=== PATIENT | male | born 1930 | race Caucasian/White ===

== ENCOUNTER 2017-02-07 14:24 | Inpatient (IN) | payer MEDICARE, OTHER ==
[~2017-02-07] VITALS: Ht 180.3 cm; Wt 55.4 kg
[2017-02-07] VITALS (8 sets, daily range): BP systolic 141–197; BP diastolic 69–106; PULSE 62–80; RESP 14–26; TEMP 97.6–98.1; O2SAT 90–99
[~2017-02-07 14:24] MED LIST: HYDR50TA15 PO; LISI20 PO; METO25 PO; OXYC5 PO; SIMV5TAB32; TEMA15 PO
[2017-02-07] MEDS ORDERED: TRAM50TA PO (15:06)
[2017-02-07] MEDS ORDERED: COLA100C (15:06)
[2017-02-07] MEDS ORDERED: CHOL100025 CHEW (15:06)
[2017-02-07] MEDS ORDERED: METO25TA3 PO (15:06)
[2017-02-07] MEDS ORDERED: PLAV75TA29 PO (15:06)
[2017-02-07] MEDS ORDERED: ASPI81CH CHEW (15:06)
[2017-02-07] MEDS ORDERED: BUPR100T4 PO (15:06)
[2017-02-07] MEDS ORDERED: [UNRECOGNIZED DRUG - CODE] PO (15:06)
[2017-02-07] MEDS ORDERED: LISI10TA3 PO (15:06)
[2017-02-07] MEDS ORDERED: PRAV80TA2 PO (15:06)
[2017-02-07] MEDS ORDERED: SERO200T PO (15:06)
--- NOTE | 2017-02-07 15:21 | PD ---
HPI Chief Complaint: Respiratory Distress Time Seen by Provider: 15:16 Travel History International Travel<30 days: No Contact w/Intl Traveler<30days: No Traveled to known affect area: No History of Present Illness HPI 86- year old brought by [facility] to the ED complaining of shortness of breath. Per Nurse, the patient lives alone at home, started with shortness of breath this morning and then pressed his Life Alert button. The patient reports that he is still short of breath, but denies any chest pain, nausea, vomiting, or diarrhea. Patient denies any medical history, however, nurse provides history of COPD and HTN. The patient denies using oxygen at home. The patient reports that he smokes one pack per day of cigarettes, but denies any alcohol or drug use. He denies no pain at this time. History is limited because of patient's mental status he. He does appear to be somewhat altered and does seem to as the same questions multiple times. 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) Hypertension: Yes Immune Disorder: No Tetanus Vaccination: Unknown Influenza Vaccination: No Past Surgical History Surgical History: Unable to Obtain Cholecystectomy: Yes Other Surgery: Yes (RECTAL FISSURE REPAIR IN [facility]) Social History Alcohol Use: No (ALCOHOLIC QUIT DRINKING YEARS AGO ) Tobacco Use: Yes (1 PPD 70) Substance Use: No Allergies-Medications (Allergen,Severity, Reaction): Coded Allergies: No Known Allergies (Verified , 02/07/17) Reported Meds & Prescriptions Reported Meds & Active Scripts Active Reported Tramadol (Tramadol HCl) 50 Mg Tab 50 Mg PO Q4H PRN Seroquel (Quetiapine Fumarate) 200 Mg Tab 200 Mg PO DAILY Pravastatin 80 Mg Tab 80 Mg PO DAILY Plavix (Clopidogrel Bisulfate) 75 Mg Tab 75 Mg PO DAILY Metoprolol Tartrate 25 Mg Tab 25 Mg PO DAILY Lisinopril 10 Mg Tab 10 Mg PO DAILY Escitalopram Liq (Escitalopram Oxalate) 5 Mg/5 Ml Soln 10 Mg PO DAILY Colace (Docusate Sodium) 100 Mg Capsule Vitamin D3 (Cholecalciferol) 1,000 Unit Chew 1,000 Units CHEW DAILY Bupropion HCl 100 Mg Tab 150 Mg PO BID Aspirin 81 Mg Chew 81 Mg CHEW DAILY Review of Systems General / Constitutional: No: Fever, Chills, Weight Gain, Weight Loss, Other Eyes: No: Diploplia, Blurred Vision, Photophobia, Drainage, Redness, Foreign Body Sensation, Pain, Tearing, Blind Spots, Visual changes, Blindness, Other HENT: No: Headaches, Vertigo, Lightheadedness, Sore Throat, Rhinitis, Rhinorrhea, Congestion, Nosebleed, Neck Stiffness, Neck Pain, Masses, Gingival Bleeding, Dental Difficulties, Ear Discharge, Earache, Other Cardiovascular: No: Chest Pain or Discomfort, Palpitations, Irregular Rhythm, Tachycardia, Diaphoresis, Syncope, Dyspnea on exertion, Varicosities, Edema, Cyanosis, Varicosities, Phlebitis, Claudication, Other Respiratory: Positive: Shortness of Breath, No: Cough, Wheezing, Sneezing, Orthopnea, Hemoptysis, Stridor, Night Sweats, Pleuritic Pain, Other Gastrointestinal: No: Nausea, Vomiting, Diarrhea, Abdominal Pain, Hematemesis, Hematochezia, Constipation, Changes in Bowel Habits, Indigestion, Dysphagia, Loss of Appetite, Other Genitourinary: No: Urgency, Frequency, Dysuria, Nocturia, Hematuria, Decreased Urinary Output, Oliguria, Hesitancy, Dribbling, Incontinence, Pelvic Pain, Flank Pain, Dyspareunia, Discharge, Dysmenorrhea, Menorrhagia, Metorrhagia, Vaginal Bleeding, Other Musculoskeletal: No: Myalgias, Arthralgias, Limited ROM, Weakness, Cramping, Edema, Pain, Atrophy, Other Skin: No Rash, No Itching, No Dryness, No Lumps, No Hives, No Change in Pigmentation, No Change in nails, No Alopecia, No Lesions, No Breast Lumps, No Breast Tenderness, No Breast Swelling, No Other Neurologic: No: Weakness, Dizziness, Syncope, Focal Abnormalities, Coordination Problem, Tremor, Ataxia, Headache, Change in Mentation, Slurred Speech, Paresthesia, Incontinence, Seizures, Sensory Disturbance, Other Psychiatric: No: Anxiety, Depression, Suicidal Ideations, Disorder of Thought, Mood Disorder, Substance Abuse, Homicidal Ideation, Other Endocrine: No: Heat Intolerance, Cold Intolerance, Polyuria, Polydipsia, Other Hematologic/Lymphatic: No: Easy Bruising, Lymph Node Enlargement, Other Physical Exam Narrative GENERAL: SKIN: Warm and dry. HEAD: Atraumatic. Normocephalic. EYES: Pupils equal and round. No scleral icterus. No injection or drainage. ENT: No nasal bleeding or discharge. Mucous membranes pink and moist. Tongue is midline. No uvula deviation. NECK: Trachea midline. No JVD. CARDIOVASCULAR: Regular rate and rhythm. No murmurs, S3, S4. RESPIRATORY: No accessory muscle use. Clear to auscultation. Breath sounds equal bilaterally. No wheezing, rales, rhonchi, or crackles. GASTROINTESTINAL: Abdomen soft, non-tender, nondistended. Hepatic and splenic margins not palpable. MUSCULOSKELETAL: Extremities without clubbing, cyanosis, or edema. No obvious deformities. Full range of motion of the upper and lower extremities bilaterally. 2+ pulses bilaterally. NEUROLOGICAL: Awake and alert. No obvious cranial nerve deficits. Motor grossly within normal limits. Five out of 5 muscle strength in the arms and legs. Normal speech. PSYCHIATRIC: Appropriate mood and affect; insight and judgment normal. Data Data Last Documented VS Vital Signs Date Time Temp Pulse Resp B/P Pulse Ox O2 Delivery O2 Flow Rate FiO2 02/07/17 18:27 70 18 176/96 90 Room Air 02/07/17 17:19 2 02/07/17 14:32 98.1 Orders Electrocardiogram (02/07/17 ) Electrocardiogram (02/07/17 15:21) Complete Blood Count With Diff (02/07/17 15:21) Comprehensive Metabolic Panel (02/07/17 15:21) Ckmb (Isoenzyme) Profile (02/07/17 15:21) Troponin I (02/07/17 15:21) B-Type Natriuretic Peptide (02/07/17 15:21) Prothrombin Time / Inr (Pt) (02/07/17 15:21) Act Partial Throm Time (Ptt) (02/07/17 15:21) Blood Culture (02/07/17 15:21) Urinalysis - C+S If Indicated (02/07/17 15:21) Magnesium (Mg) (02/07/17 15:21) Thyroid Stimulating Hormone (02/07/17 15:21) Chest, Single Ap (02/07/17 15:21) Ct Brain W/O Iv Contrast(Rout) (02/07/17 15:21) Iv Access Insert/Monitor (02/07/17 15:21) Ecg Monitoring (02/07/17 15:21) Oximetry (02/07/17 15:21) Methylprednisolone So Succ Inj (Solumedr (02/07/17 15:30) Albuterol Neb (Albuterol Neb) (02/07/17 15:30) Lisinopril (Prinivil) (02/07/17 17:30) Metoprolol Tartrate (Lopressor) (02/07/17 17:30) Labs Laboratory Tests Test 02/07/17 15:29 White Blood Count 6.9 TH/MM3 Red Blood Count 4.16 MIL/MM3 Hemoglobin 11.7 GM/DL Hematocrit 36.0 % Mean Corpuscular Volume 86.5 FL Mean Corpuscular Hemoglobin 28.1 PG Mean Corpuscular Hemoglobin 32.5 % Concent Red Cell Distribution Width 15.8 % Platelet Count 244 TH/MM3 Mean Platelet Volume 8.3 FL Neutrophils (%) (Auto) 55.9 % Lymphocytes (%) (Auto) 33.5 % Monocytes (%) (Auto) 8.1 % Eosinophils (%) (Auto) 1.5 % Basophils (%) (Auto) 1.0 % Neutrophils # (Auto) 3.9 TH/MM3 Lymphocytes # (Auto) 2.3 TH/MM3 Monocytes # (Auto) 0.6 TH/MM3 Eosinophils # (Auto) 0.1 TH/MM3 Basophils # (Auto) 0.1 TH/MM3 CBC Comment DIFF FINAL Differential Comment Prothrombin Time 11.0 SEC Prothromb Time International 1.0 RATIO Ratio Activated Partial 29.8 SEC Thromboplast Time Sodium Level 141 MEQ/L Potassium Level 3.9 MEQ/L Chloride Level 107 MEQ/L Carbon Dioxide Level 29.2 MEQ/L Anion Gap 5 MEQ/L Blood Urea Nitrogen 22 MG/DL Creatinine 1.33 MG/DL Estimat Glomerular Filtration 51 ML/MIN Rate Random Glucose 92 MG/DL Calcium Level 8.8 MG/DL Magnesium Level 2.2 MG/DL Total Bilirubin 0.5 MG/DL Aspartate Amino Transf 17 U/L (AST/SGOT) Alanine Aminotransferase 11 U/L (ALT/SGPT) Alkaline Phosphatase 146 U/L Total Creatine Kinase 62 U/L Troponin I 0.02 NG/ML B-Type Natriuretic Peptide 451 PG/ML Total Protein 6.5 GM/DL Albumin 3.6 GM/DL Thyroid Stimulating Hormone 1.600 uIU/ML 3rd Gen [facility] Medical Decision Making Medical Screen Exam Complete: Yes Emergency Medical Condition: Yes Medical Record Reviewed: Yes Interpretation(s) CBC & BMP Diagram 02/07/17 15:29 LFTs within normal limits. Troponin and CK-MB negative. Last Impressions Head CT 02/07/17 1521 Signed Impressions: Service Date/Time: Tuesday, February 07, 2017 16:26 - CONCLUSION: 1. No acute abnormality is seen. 2. Age-related atrophy and suspected small vessel ischemic change in the white matter. Julio Cesar Fernández MD Chest X-Ray 02/07/17 1521 Signed Impressions: Service Date/Time: Tuesday, February 07, 2017 15:26 - CONCLUSION: No acute disease. Naveed Vasques Jr., MD EKG shows sinus rhythm with no sign of acute ischemia or arrhythmia. Read by me and attending. Differential Diagnosis COPD exacerbation versus respiratory distress versus inability take care of self versus dementia versus altered mental status Narrative Course 86-year-old male that presents to the ED for evaluation of shortness of breath. Patient was properly examined and was found to have signs and symptoms consistent with COPD exacerbation. Patient was brought oxygen and his O2 came out. He was given breathing treatments as well as labs and imaging. Patient is somewhat of a poor historian heat appears to have some sort of dementia. She has trouble remembering where he takes and he for the most part only takes no medications. He lives by himself. Per my attending Dr. Marquis evaluated the patient with me who is in agreement with plan. Patient does need either placement or home health. I spoke with case management who recommends admission. O2 here with walking comes down to 90. HEPAS was paged. Dr Calderón agrees to admission. Diagnosis Primary Impression: COPD with exacerbation Additional Impressions: Altered mental status Qualified Code: R41.82 - Altered mental status, unspecified altered mental status type HTN (hypertension) Qualified Code: I10 - Essential hypertension Admitting Information Admitting Physician Requests: Admit Lanre Montero Feb 07, 2017 15:20
[2017-02-07] MEDS ORDERED: methylPREDNISolone SOD SUCC 125 MG/2 ML VIAL IVP ONE (15:30)
[2017-02-07] MEDS: RESP: ALBUTEROL 2.5 MG/3 ML NEB (SCH) INH ×2 (16:00→16:01)
[2017-02-07 16:03] LABS: AUTOMATED NEUTROPHIL # 3.9 TH/MM3 (1.8-7.7); BASOPHIL # 0.1 TH/MM3 (0-0.2); EOSINOPHIL # 0.1 TH/MM3 (0-0.4); EOSINOPHIL % 1.5 % (0.0-4.0); HEMO FLAGS DIFF FINAL; LYMPH % 33.5 % (9.0-44.0); LYMPHOCYTE # 2.3 TH/MM3 (1.0-4.8); MEAN CELL VOLUME 86.5 FL (80.0-100.0); MEAN CORPUSCULAR HEMOGLOBIN 28.1 PG (27.0-34.0); MEAN CORPUSCULAR HGB CONC 32.5 % (32.0-36.0); MONO % 8.1 % (0.0-8.0); NEUT % 55.9 % (16.0-70.0); PLATELET COUNT 244 TH/MM3 (150-450); RED BLOOD COUNT 4.16 MIL/MM3 (4.50-5.90); RED CELL DISTRIBUTION WIDTH 15.8 % (11.6-17.2); WHITE BLOOD COUNT 6.9 TH/MM3 (4.0-11.0)
--- NOTE | 2017-02-07 16:08 | RADRPT ---
EXAM DATE/TIME: 02/07/2017 15:26 [facility] COMPARISON: No previous studies available for comparison. INDICATIONS : Shortness of breath. MEDICAL HISTORY : Hypertension. Cerebrovascular disease. SURGICAL HISTORY : None. ENCOUNTER: Initial ACUITY: 1 day PAIN SCORE: 0/10 LOCATION: Bilateral chest FINDINGS: A single view of the chest demonstrates the lungs to be symmetrically aerated without evidence of mas s, infiltrate or effusion. The cardiomediastinal contours are unremarkable. Osseous structures are intact. Scoliotic curvature. CONCLUSION: No acute disease. Naveed Vasques Jr., MD on February 07, 2017 at 16:06 Board Certified Radiologist. This report was verified electronically.
[2017-02-07 16:20] LABS: ANION GAP 5 MEQ/L (5-15); APTT (PATIENT) 29.8 SEC (24.3-30.1); AST (GOT) 17 U/L (15-37); BICARBONATE 29.2 MEQ/L (21.0-32.0); BLOOD UREA NITROGEN 22 MG/DL (7-18); CHLORIDE 107 MEQ/L (98-107); GLOMERULAR FILTRATION RATE 51 ML/MIN (>89); MAGNESIUM 2.2 MG/DL (1.5-2.5); POTASSIUM 3.9 MEQ/L (3.5-5.1); SODIUM (NA) 141 MEQ/L (136-145)
[2017-02-07 16:31] LABS: ALKALINE PHOSPHATASE 146 U/L (45-117); ALT (GPT) 11 U/L (12-78); TOTAL BILIRUBIN ADULT 0.5 MG/DL (0.2-1.0)
[2017-02-07 16:33] LABS: CREATINE KINASE 62 U/L (39-308)
--- NOTE | 2017-02-07 17:01 | RADRPT ---
EXAM DATE/TIME: 02/07/2017 16:26 [facility] COMPARISON: CT BRAIN W/O CONTRAST, July 09, 2015, 17:45. INDICATIONS : Altered mental status RADIATION DOSE: 56.35 CTDIvol (mGy) MEDICAL HISTORY : Hypertension. Chronic obstructive pulmonary disease. SURGICAL HISTORY : Cholecystectomy. ENCOUNTER: Initial ACUITY: 1 day PAIN SCALE: 0/10 LOCATION: cranial TECHNIQUE: Multiple contiguous axial images were obtained of the head. Using automated exposure control and adj ustment of the mA and/or kV according to patient size, radiation dose was kept as low as reasonably a chievable to obtain optimal diagnostic quality images. DICOM format image data is available electro nically for review and comparison. FINDINGS: CEREBRUM: The ventricles are cortical sulci are widened. There is low-density throughout the cerebral white mat ter. 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 No evidence of midline shift, mass lesion, hemorrhage or acute infarction. No extra-axial fluid collections are seen. POSTERIOR FOSSA: The cerebellum and brainstem are intact. The 4th ventricle is midline. The cerebellopontine angle i s unremarkable. EXTRACRANIAL: The visualized portion of the orbits is intact. SKULL: The calvaria is intact. No evidence of skull fracture. CONCLUSION: 1. No acute abnormality is seen. 2. Age-related atrophy and suspected small vessel ischemic change in the white matter. Julio Cesar Fernández MD on February 07, 2017 at 16:57 Board Certified Radiologist. This report was verified electronically.
[2017-02-07] MEDS ORDERED: LISINOPRIL 10 MG TAB PO ONE (17:30)
[2017-02-07] MEDS ORDERED: METOPROLOL TARTRATE 25 MG TAB PO ONE (17:30)
[2017-02-07] MEDS ORDERED: SODIUM CHLORIDE 0.9% FLUSH 10 ML FLUSH IV FLUSH PRN (20:00)
[2017-02-07] MEDS ORDERED: NALOXONE HCL 0.4 MG/ML AMP IV PRN (20:00)
[2017-02-07] MEDS ORDERED: RESP: ALBUTEROL 2.5 MG/IPRATROPIUM 0.5 MG NEB (PRN) NEB (20:15)
[2017-02-07] MEDS: SODIUM CHLORIDE 0.9% FLUSH 10 ML FLUSH IV FLUSH SCH (20:54)
[2017-02-07] MEDS: RESP: ALBUTEROL 2.5 MG/IPRATROPIUM 0.5 MG NEB (SCH) NEB (22:34)
[2017-02-08] VITALS (8 sets, daily range): BP systolic 97–161; BP diastolic 55–86; PULSE 64–86; RESP 18–19; TEMP 97.6–98.7; O2SAT 94–97
--- NOTE | 2017-02-08 02:26 | HHI.HP ---
HPI Service [facility] Primary Care Physician Unknown Admission Diagnosis COPD exacerbation, altered, hypoxia Diagnoses: Chief Complaint: dyspnea Travel History International Travel<30 Days: No Contact w/Intl Traveler <30 Da: No Traveled to Known Affected Are: No History of Present Illness Written by AFRICA Freire acting as scribe for [Stephane] on 02/08/17 at 02: 18. 86 y/o with a history of copd, cad, HLD, depression and htn presented to the ED with complaints of not being able to breath. He states he has had a hard time breathing for about a week. He denies any cough, nausea, vomiting, chest pain, fevers or chills. He does not know what he takes his medication for, but states his daughter gives him his medication, and sets up his pill box. Patient states he is not eating a lot because he lives alone and its hard for him to cook for himself. Review of Systems Except as stated in HPI: all other systems reviewed are Neg Past Family Social History Past Medical History copd cad HLD depression htn Reported Medications Reported Meds & Active Scripts Active Reported Tramadol (Tramadol HCl) 50 Mg Tab 50 Mg PO Q4H PRN Seroquel (Quetiapine Fumarate) 200 Mg Tab 200 Mg PO DAILY Pravastatin 80 Mg Tab 80 Mg PO DAILY Plavix (Clopidogrel Bisulfate) 75 Mg Tab 75 Mg PO DAILY Metoprolol Tartrate 25 Mg Tab 25 Mg PO DAILY Lisinopril 10 Mg Tab 10 Mg PO DAILY Escitalopram Liq (Escitalopram Oxalate) 5 Mg/5 Ml Soln 10 Mg PO DAILY Colace (Docusate Sodium) 100 Mg Capsule Vitamin D3 (Cholecalciferol) 1,000 Unit Chew 1,000 Units CHEW DAILY Bupropion HCl 100 Mg Tab 150 Mg PO BID Aspirin 81 Mg Chew 81 Mg CHEW DAILY Allergies: Coded Allergies: No Known Allergies (Verified , 02/07/17) Active Ordered Medications Current Medications Medications (Trade) Dose Ordered Sig/Abhi Route Start Time Stop Time Status Last Admin (NS Flush) 2 ml UNSCH PRN IV FLUSH 02/07/17 20:00 (NS Flush) 2 ml BID IV FLUSH 02/07/17 21:00 02/07/17 20:54 (Narcan Inj) 0.4 mg UNSCH PRN IV 02/07/17 20:00 Family History Only child Mom when he was 1 Dad: ETOH abuse Social History Tobacco use: 1 PPD Alcohol use: years ago Illicit drug use: Denies Patient lives alone Physical Exam Vital Signs Vital Signs Date Time Temp Pulse Resp B/P Pulse Ox O2 Delivery O2 Flow Rate FiO2 02/08/17 00:44 64 02/07/17 23:49 97.6 67 19 145/77 94 02/07/17 22:08 97.6 63 18 141/69 96 02/07/17 19:34 97.9 62 14 163/84 98 Room Air 02/07/17 18:27 70 18 176/96 90 Room Air 02/07/17 17:19 79 16 197/106 97 Nasal Cannula 2 02/07/17 16:00 99 Nasal Cannula 2.00 02/07/17 15:00 76 18 183/91 98 Nasal Cannula 2 02/07/17 14:41 26 Room Air 02/07/17 14:32 98.1 80 26 156/79 94 Physical Exam GENERAL: This is a well-nourished, well-developed patient, in no apparent distress. SKIN: No rashes, ecchymoses or lesions. Cool and dry. HEAD: Atraumatic. Normocephalic. EYES: Pupils equal round and reactive. Extraocular motions intact. ENT: Nose without bleeding, purulent drainage or septal hematoma. Airway patent. NECK: Trachea midline. No JVD or lymphadenopathy. CARDIOVASCULAR: Regular rate and rhythm without murmurs, gallops, or rubs. RESPIRATORY: Clear to auscultation. Breath sounds equal bilaterally. No wheezes , rales, or rhonchi. GASTROINTESTINAL: Abdomen soft, non-tender, nondistended. No hepato-splenomegaly , or palpable masses. No guarding. MUSCULOSKELETAL: Extremities without clubbing, cyanosis, or edema. No joint tenderness, effusion, or edema noted. No calf tenderness. NEUROLOGICAL: Awake and alert. Motor and sensory grossly within normal limits. Normal speech. Laboratory Laboratory Tests Test 02/07/17 02/07/17 15:29 21:15 White Blood Count 6.9 Red Blood Count 4.16 Hemoglobin 11.7 Hematocrit 36.0 Mean Corpuscular Volume 86.5 Mean Corpuscular Hemoglobin 28.1 Mean Corpuscular Hemoglobin 32.5 Concent Red Cell Distribution Width 15.8 Platelet Count 244 Mean Platelet Volume 8.3 Neutrophils (%) (Auto) 55.9 Lymphocytes (%) (Auto) 33.5 Monocytes (%) (Auto) 8.1 Eosinophils (%) (Auto) 1.5 Basophils (%) (Auto) 1.0 Neutrophils # (Auto) 3.9 Lymphocytes # (Auto) 2.3 Monocytes # (Auto) 0.6 Eosinophils # (Auto) 0.1 Basophils # (Auto) 0.1 CBC Comment DIFF FINAL Differential Comment Prothrombin Time 11.0 Prothromb Time International 1.0 Ratio Activated Partial 29.8 Thromboplast Time Sodium Level 141 Potassium Level 3.9 Chloride Level 107 Carbon Dioxide Level 29.2 Anion Gap 5 Blood Urea Nitrogen 22 Creatinine 1.33 Estimat Glomerular Filtration 51 Rate Random Glucose 92 Calcium Level 8.8 Magnesium Level 2.2 Total Bilirubin 0.5 Aspartate Amino Transf 17 (AST/SGOT) Alanine Aminotransferase 11 (ALT/SGPT) Alkaline Phosphatase 146 Total Creatine Kinase 62 58 Troponin I 0.02 0.02 B-Type Natriuretic Peptide 451 Total Protein 6.5 Albumin 3.6 Thyroid Stimulating Hormone 1.600 3rd Gen Date/Time Procedure Status Source Growth 02/07/17 16:17 Aerobic Blood Culture Received Blood Peripheral Pending 02/07/17 16:17 Anaerobic Blood Culture Received Blood Peripheral Pending Result Diagram: 02/07/17 1529 02/07/17 1529 Imaging Last Impressions Head CT 02/07/17 1521 Signed Impressions: Service Date/Time: Tuesday, February 07, 2017 16:26 - CONCLUSION: 1. No acute abnormality is seen. 2. Age-related atrophy and suspected small vessel ischemic change in the white matter. Julio Cesar Fernández MD Chest X-Ray 02/07/17 1521 Signed Impressions: Service Date/Time: Tuesday, February 07, 2017 15:26 - CONCLUSION: No acute disease. Naveed Vasques Jr., MD Assessment and Plan Problem List: (1) COPD with exacerbation ICD Code: J44.1 Status: Acute (2) HTN (hypertension) ICD Code: I10 Status: Chronic (3) Protein calorie malnutrition ICD Code: E46 Status: Acute Assessment and Plan 86 y/o with a history of copd, cad, HLD, depression and htn presented to the ED with complaints of not being able to breath. 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 I, Dr. Bhakti Calderón personally performed the history, physical exam, and medical decision making; and confirmed the accuracy of the information in the transcribed note. Authenticated by Dr. Bhakti Calderón on02/08/17 at 02:18. Discussed Condition With Patient and RN Physician Certification 2 Midnight Certification Type: Admission for Inpatient Services Order for Inpatient Services The services are ordered in accordance with Medicare regulations or non- Medicare payer requirements, as applicable. In the case of services not specified as inpatient-only, they are appropriately provided as inpatient services in accordance with the 2-midnight benchmark. Estimated LOS (days): 3 days is the estimated time the patient will need to remain in the hospital, assuming treatment plan goals are met and no additional complications. Post-Hospital Plan: Not yet determined Problem Qualifiers (1) HTN (hypertension): Qualified Code: I10 - Essential hypertension Karina Lowery Feb 08, 2017 02:26 Bhakti Calderón MD Feb 08, 2017 07:25
[2017-02-08] MEDS: RESP: ALBUTEROL 2.5 MG/IPRATROPIUM 0.5 MG NEB (SCH) NEB ×4 (02:57→20:16)
[2017-02-08 03:58] LABS: CREATINE KINASE 75 U/L (39-308)
[2017-02-08 04:34] LABS: AUTOMATED NEUTROPHIL # 4.7 TH/MM3 (1.8-7.7); BASOPHIL % 0.3 % (0.0-2.0); EOSINOPHIL % 0.1 % (0.0-4.0); HEMO FLAGS DIFF FINAL; LYMPH % 14.4 % (9.0-44.0); LYMPHOCYTE # 0.8 TH/MM3 (1.0-4.8); MEAN CORPUSCULAR HEMOGLOBIN 28.7 PG (27.0-34.0); MEAN CORPUSCULAR HGB CONC 33.4 % (32.0-36.0); MONO % 1.4 % (0.0-8.0); NEUT % 83.8 % (16.0-70.0); PLATELET COUNT 210 TH/MM3 (150-450); RED BLOOD COUNT 3.95 MIL/MM3 (4.50-5.90); RED CELL DISTRIBUTION WIDTH 15.5 % (11.6-17.2); WHITE BLOOD COUNT 5.6 TH/MM3 (4.0-11.0)
--- NOTE | 2017-02-08 09:39 | HHI.PR ---
Subjective Remarks resting comfortably with no distress. says that his sob has improved. no chest pain. Objective Vitals Vital Signs Date Time Temp Pulse Resp B/P Pulse Ox O2 Delivery O2 Flow Rate FiO2 02/08/17 08:45 97.9 72 18 129/70 94 02/08/17 03:27 97.8 68 19 123/76 95 02/08/17 00:44 64 02/07/17 23:49 97.6 67 19 145/77 94 02/07/17 22:24 21 02/07/17 22:08 97.6 63 18 141/69 96 02/07/17 19:34 97.9 62 14 163/84 98 Room Air 02/07/17 18:27 70 18 176/96 90 Room Air 02/07/17 17:19 79 16 197/106 97 Nasal Cannula 2 02/07/17 16:00 99 Nasal Cannula 2.00 02/07/17 15:00 76 18 183/91 98 Nasal Cannula 2 02/07/17 14:41 26 Room Air 02/07/17 14:32 98.1 80 26 156/79 94 Result Diagram: 02/08/17 0327 02/07/17 1529 Imaging Last Impressions Head CT 02/07/17 1521 Signed Impressions: Service Date/Time: Tuesday, February 07, 2017 16:26 - CONCLUSION: 1. No acute abnormality is seen. 2. Age-related atrophy and suspected small vessel ischemic change in the white matter. Julio Cesar Fernández MD Chest X-Ray 02/07/17 1521 Signed Impressions: Service Date/Time: Tuesday, February 07, 2017 15:26 - CONCLUSION: No acute disease. Naveed Vasques Jr., MD Objective Remarks GENERAL: elderly female, in no apparent distress. CARDIOVASCULAR: Regular rate and regular rhythm without murmurs, gallops, or rubs. RESPIRATORY: Clear to auscultation. Breath sounds equal bilaterally. No wheezes , rales, or rhonchi. GASTROINTESTINAL: Abdomen soft, non-tender, nondistended. Normal, active bowel sounds MUSCULOSKELETAL: Extremities without clubbing, cyanosis, or edema. NEURO: Alert & Oriented x4 to person, place, time, situation. Moves all ext x4 Medications and IVs Current Medications Methylprednisolone Sodium Succinate (SoluMEDROL INJ) 125 mg ONCE ONCE IVP Last administered on 02/07/17 16:51; Start 02/07/17 at 15:30; Stop 02/07/17 at 15:31; Status DC Albuterol Sulfate (Albuterol Neb) 2.5 mg Q15M INH Last administered on 16:01; Start 02/07/17 at 15:30; Stop 02/07/17 at 15:46; Status DC Lisinopril (Prinivil) 10 mg ONCE ONCE PO Last administered on 02/07/17 17:57 ; Start 02/07/17 at 17:30; Stop 02/07/17 at 17:31; Status DC Metoprolol Tartrate (Lopressor) 25 mg ONCE ONCE PO Last administered on 17:57; Start 02/07/17 at 17:30; Stop 02/07/17 at 17:31; Status DC Sodium Chloride (NS Flush) 2 ml UNSCH PRN IV FLUSH FLUSH AFTER USING IV ACCESS ; Start 02/07/17 at 20:00 Sodium Chloride (NS Flush) 2 ml BID IV FLUSH Last administered on 02/07/17 20: 54; Start 02/07/17 at 21:00 Naloxone HCl (Narcan Inj) 0.4 mg UNSCH PRN IV SEE LABEL COMMENTS; Start at 20:00 Albuterol/ Ipratropium (Duoneb Neb) 1 ampule Q6HR NEB NEB Last administered on 02/08/17 08:55; Start 02/07/17 at 22:00 Albuterol/ Ipratropium (Duoneb Neb) 1 ampule Q2HR NEB PRN NEB wheezing; Start 02/07/17 at 20:15 Aspirin (Aspirin Chew) 81 mg DAILY CHEW ; Start 02/08/17 at 09:00 Bupropion HCl (Wellbutrin) 150 mg BID PO ; Start 02/08/17 at 09:00 Cholecalciferol (Vitamin D3) 1,000 units DAILY PO ; Start 02/08/17 at 09:00 Clopidogrel Bisulfate (Plavix) 75 mg DAILY PO ; Start 02/08/17 at 09:00 Lisinopril (Prinivil) 10 mg DAILY PO ; Start 02/08/17 at 09:00 Metoprolol Tartrate (Lopressor) 25 mg DAILY PO ; Start 02/08/17 at 09:00 Pravastatin Sodium (Pravachol) 80 mg DAILY PO ; Start 02/08/17 at 09:00 Quetiapine Fumarate (SEROquel) 200 mg DAILY PO ; Start 02/08/17 at 09:00 Escitalopram Oxalate (Lexapro) 10 mg DAILY PO ; Start 02/08/17 at 09:00 A/P Assessment and Plan A/P Copd exacerbation with hypoxia 90% on rm air Chest x ray reviewed and is unremarkable -Duonebs prn and scheduled -Incentive spirometer ordered HTN, chronic -Resumed home medications lisinopril and metoprolol Protein- calorie malnutrition, patient states it is difficult to cook for himself -Consult case management for possible ramila or snf - consult profiler hand CKD, creatine 1.3, at baseline -Avoid nephrotoxins -Trend BMP consult PT DVT prophylaxis: SCDs Discharge Planning awaiting PT evaluation- possible SNF. Regan Higgins MD Feb 08, 2017 09:39
[2017-02-08] MEDS: ASPIRIN 81 MG CHEW TAB CHEW SCH (10:08)
[2017-02-08] MEDS: SODIUM CHLORIDE 0.9% FLUSH 10 ML FLUSH IV FLUSH SCH ×2 (10:08→20:48)
[2017-02-08] MEDS: ESCITALOPRAM OXALATE 10 MG TAB PO SCH (10:09)
[2017-02-08] MEDS: CLOPIDOGREL 75 MG TAB PO SCH (10:09)
[2017-02-08] MEDS: PRAVASTATIN SOD 80 MG TAB PO SCH (10:10)
[2017-02-08] MEDS: QUEtiapine FUMARATE 200 MG TAB PO SCH (10:10)
[2017-02-08] MEDS: CHOLECALCIFEROL (VIT D3) 1000 UNIT TAB PO SCH (10:10)
[2017-02-08] MEDS: buPROPion HCL 75 MG TAB PO SCH ×2 (10:11→20:48)
[2017-02-08] MEDS: LISINOPRIL 10 MG TAB PO SCH (10:15)
[2017-02-08] MEDS: METOPROLOL TARTRATE 25 MG TAB PO SCH (10:15)
--- NOTE | 2017-02-08 15:04 | EKG ---
Date Performed: 02/08/2017 Time Performed: 03:52:14 PTAGE: 86 years EKG: ATRIAL FIBRILLATION NONSPECIFIC ST & T-WAVE ABNORMALITY ABNORMAL ECG PREVIOUS TRACING : 02/07/2017 21.27 Compared to the previous tracing, appears to be in atrial f ibrillation DOCTOR: Josue Cantor Interpretating Date/Time 02/08/2017 15:04:13
[2017-02-08 16:31] LABS: BICARBONATE 29.9 MEQ/L (21.0-32.0); POTASSIUM 3.6 MEQ/L (3.5-5.1)
[2017-02-09] VITALS (16 sets, daily range): BP systolic 87–173; BP diastolic 51–93; PULSE 59–75; RESP 16–20; TEMP 97.4–98.6; O2SAT 94–100
[2017-02-09] MEDS: RESP: ALBUTEROL 2.5 MG/IPRATROPIUM 0.5 MG NEB (SCH) NEB ×4 (02:54→21:39)
--- NOTE | 2017-02-09 08:45 | EKG ---
Date Performed: 02/07/2017 Time Performed: 21:27:40 PTAGE: 86 years EKG: SINUS BRADYCARDIA WITH OCCASIONAL VENTRICULAR PREMATURE COMPLEXES NONSPECIFIC ST & T-WAVE A BNORMALITY BORDERLINE ECG PREVIOUS TRACING : 02/07/2017 14.48 Compared to the previous tracing, non-specific ST/T wave ch anges are now noted DOCTOR: Josue Cantor Interpretating Date/Time 02/09/2017 08:43:58
--- NOTE | 2017-02-09 08:55 | EKG ---
Date Performed: 02/07/2017 Time Performed: 14:48:24 PTAGE: 86 years EKG: Sinus rhythm POSSIBLE RIGHT VENTRICULAR CONDUCTION DELAY MILD ST DEPRESSION ABNORMAL ECG PREVIOUS TRACING : 07/09/2015 17.37 Compared to the previous tracing, previously non-specific S T/T wave changes DOCTOR: Josue Cantro Interpretating Date/Time 02/09/2017 08:52:17
--- NOTE | 2017-02-09 10:05 | HHI.PR ---
Subjective Remarks in no acute distress. denies chest pain or sob. no fever. Objective Vitals Vital Signs Date Time Temp Pulse Resp B/P Pulse Ox O2 Delivery O2 Flow Rate FiO2 02/09/17 07:57 Room Air 02/09/17 07:57 97.4 75 16 173/78 96 02/09/17 04:53 98.6 69 18 165/93 97 02/09/17 01:48 66 02/09/17 00:25 98.6 68 18 141/70 95 02/08/17 21:35 98.7 81 18 128/64 96 02/08/17 20:14 95 02/08/17 16:54 97.6 75 18 97/55 95 02/08/17 11:39 97.6 77 18 106/58 97 02/08/17 10:18 86 161/86 Result Diagram: 02/08/17 0327 02/08/17 1455 Imaging Last Impressions Head CT 02/07/17 1521 Signed Impressions: Service Date/Time: Tuesday, February 07, 2017 16:26 - CONCLUSION: 1. No acute abnormality is seen. 2. Age-related atrophy and suspected small vessel ischemic change in the white matter. Julio Cesar Fernández MD Chest X-Ray 02/07/17 1521 Signed Impressions: Service Date/Time: Tuesday, February 07, 2017 15:26 - CONCLUSION: No acute disease. Naveed Vasques Jr., MD Objective Remarks GENERAL: elderly male, in no apparent distress. CARDIOVASCULAR: Regular rate and regular rhythm without murmurs, gallops, or rubs. RESPIRATORY: Clear to auscultation. Breath sounds equal bilaterally. No wheezes , rales, or rhonchi. GASTROINTESTINAL: Abdomen soft, non-tender, nondistended. Normal, active bowel sounds MUSCULOSKELETAL: Extremities without clubbing, cyanosis, or edema. NEURO: Alert & Oriented x4 to person, place, time, situation. Moves all ext x4 Procedures none Medications and IVs Current Medications Methylprednisolone Sodium Succinate (SoluMEDROL INJ) 125 mg ONCE ONCE IVP Last administered on 02/07/17 16:51; Start 02/07/17 at 15:30; Stop 02/07/17 at 15:31; Status DC Albuterol Sulfate (Albuterol Neb) 2.5 mg Q15M INH Last administered on 16:01; Start 02/07/17 at 15:30; Stop 02/07/17 at 15:46; Status DC Lisinopril (Prinivil) 10 mg ONCE ONCE PO Last administered on 02/07/17 17:57 ; Start 02/07/17 at 17:30; Stop 02/07/17 at 17:31; Status DC Metoprolol Tartrate (Lopressor) 25 mg ONCE ONCE PO Last administered on 17:57; Start 02/07/17 at 17:30; Stop 02/07/17 at 17:31; Status DC Sodium Chloride (NS Flush) 2 ml UNSCH PRN IV FLUSH FLUSH AFTER USING IV ACCESS ; Start 02/07/17 at 20:00 Sodium Chloride (NS Flush) 2 ml BID IV FLUSH Last administered on 02/08/17 20: 48; Start 02/07/17 at 21:00 Naloxone HCl (Narcan Inj) 0.4 mg UNSCH PRN IV SEE LABEL COMMENTS; Start at 20:00 Albuterol/ Ipratropium (Duoneb Neb) 1 ampule Q6HR NEB NEB Last administered on 02/09/17 07:19; Start 02/07/17 at 22:00 Albuterol/ Ipratropium (Duoneb Neb) 1 ampule Q2HR NEB PRN NEB wheezing; Start 02/07/17 at 20:15 Aspirin (Aspirin Chew) 81 mg DAILY CHEW Last administered on 02/08/17 10:08; Start 02/08/17 at 09:00 Bupropion HCl (Wellbutrin) 150 mg BID PO Last administered on 02/08/17 20:48; Start 02/08/17 at 09:00 Cholecalciferol (Vitamin D3) 1,000 units DAILY PO Last administered on 10:10; Start 02/08/17 at 09:00 Clopidogrel Bisulfate (Plavix) 75 mg DAILY PO Last administered on 02/08/17 10 :09; Start 02/08/17 at 09:00 Lisinopril (Prinivil) 10 mg DAILY PO Last administered on 02/08/17 10:15; Start 02/08/17 at 09:00 Metoprolol Tartrate (Lopressor) 25 mg DAILY PO Last administered on 02/08/17 10:15; Start 02/08/17 at 09:00 Pravastatin Sodium (Pravachol) 80 mg DAILY PO Last administered on 02/08/17 10 :10; Start 02/08/17 at 09:00 Quetiapine Fumarate (SEROquel) 200 mg DAILY PO Last administered on 02/08/17 10:10; Start 02/08/17 at 09:00 Escitalopram Oxalate (Lexapro) 10 mg DAILY PO Last administered on 02/08/17 10 :09; Start 02/08/17 at 09:00 A/P Assessment and Plan A/P Copd exacerbation Chest x ray reviewed and is unremarkable -continue neb treatment -Incentive spirometer ordered HTN, chronic -Resumed home medications lisinopril and metoprolol Protein- calorie malnutrition, patient states it is difficult to cook for himself -Consult case management for possible [facility] or snf - consult science intern CKD, creatine 1.3, at baseline -Avoid nephrotoxins -Trend BMP consult PT DVT prophylaxis: SCDs Discharge Planning discharge within the next 24 hrs. see med list. f/u; pcp. d/w the patient and case management. Regan Higgins MD Feb 09, 2017 10:05
[2017-02-09] MEDS ORDERED: ASPI81CH CHEW (10:09)
[2017-02-09] MEDS ORDERED: PRAV80TA2 PO (10:10)
[2017-02-09] MEDS ORDERED: TRAM50TA PO (10:10)
[2017-02-09] MEDS ORDERED: LISI10TA3 PO (10:10)
[2017-02-09] MEDS ORDERED: COLA100C PO (10:10)
[2017-02-09] MEDS ORDERED: [UNRECOGNIZED DRUG - CODE] PO (10:10)
[2017-02-09] MEDS ORDERED: PLAV75TA29 PO (10:10)
[2017-02-09] MEDS ORDERED: SERO200T PO (10:10)
[2017-02-09] MEDS ORDERED: CHOL100025 CHEW (10:10)
[2017-02-09] MEDS ORDERED: IPRASOL NEB (10:10)
[2017-02-09] MEDS ORDERED: METO25TA3 PO (10:10)
[2017-02-09] MEDS ORDERED: BUPR100T4 PO (10:10)
[2017-02-09] MEDS: CLOPIDOGREL 75 MG TAB PO SCH (10:19)
[2017-02-09] MEDS: PRAVASTATIN SOD 80 MG TAB PO SCH (10:19)
[2017-02-09] MEDS: ASPIRIN 81 MG CHEW TAB CHEW SCH (10:19)
[2017-02-09] MEDS: buPROPion HCL 75 MG TAB PO SCH ×2 (10:19→22:07)
[2017-02-09] MEDS: CHOLECALCIFEROL (VIT D3) 1000 UNIT TAB PO SCH (10:19)
[2017-02-09] MEDS: QUEtiapine FUMARATE 200 MG TAB PO SCH (10:19)
[2017-02-09] MEDS: ESCITALOPRAM OXALATE 10 MG TAB PO SCH (10:19)
[2017-02-09] MEDS: METOPROLOL TARTRATE 25 MG TAB PO SCH (10:19)
[2017-02-09] MEDS: LISINOPRIL 10 MG TAB PO SCH (10:20)
[2017-02-09] MEDS: SODIUM CHLORIDE 0.9% FLUSH 10 ML FLUSH IV FLUSH SCH ×2 (10:21→21:00)
[2017-02-09] MEDS ORDERED: SODIUM CHLOR 0.9% 250 ML INJ 250 ML IV ONE ×2 (14:00→15:00)
[2017-02-10] VITALS (9 sets, daily range): BP systolic 119–184; BP diastolic 64–96; PULSE 54–67; RESP 16–17; TEMP 96.4–97.9; O2SAT 93–97
[2017-02-10] MEDS: RESP: ALBUTEROL 2.5 MG/IPRATROPIUM 0.5 MG NEB (SCH) NEB ×4 (03:14→21:30)
[2017-02-10] MEDS: buPROPion HCL 75 MG TAB PO SCH (10:09)
[2017-02-10] MEDS: ASPIRIN 81 MG CHEW TAB CHEW SCH (10:09)
[2017-02-10] MEDS: PRAVASTATIN SOD 80 MG TAB PO SCH (10:09)
[2017-02-10] MEDS: CLOPIDOGREL 75 MG TAB PO SCH (10:09)
[2017-02-10] MEDS: ESCITALOPRAM OXALATE 10 MG TAB PO SCH (10:09)
[2017-02-10] MEDS: QUEtiapine FUMARATE 200 MG TAB PO SCH (10:09)
[2017-02-10] MEDS: CHOLECALCIFEROL (VIT D3) 1000 UNIT TAB PO SCH (10:09)
[2017-02-10] MEDS: SODIUM CHLORIDE 0.9% FLUSH 10 ML FLUSH IV FLUSH SCH ×2 (10:10→22:36)
[2017-02-10] MEDS ORDERED: MAGNESIUM HYDROXIDE SUSP 30 ML CUP PO ONE (11:00)
--- NOTE | 2017-02-10 11:02 | HHI.PR ---
Subjective Remarks in no acute distress. denies pain. no fever. d/w the RN and no acute issues over night. Objective Vitals Vital Signs Date Time Temp Pulse Resp B/P Pulse Ox O2 Delivery O2 Flow Rate FiO2 02/10/17 09:32 95 21 02/10/17 05:40 97.9 63 17 143/73 97 02/10/17 04:26 97.6 63 17 184/96 97 02/10/17 00:00 63 02/09/17 23:18 98.4 66 17 146/69 94 02/09/17 21:40 100 21 02/09/17 20:30 59 02/09/17 20:05 Room Air 02/09/17 19:58 97.5 61 17 137/81 98 02/09/17 17:00 67 129/67 02/09/17 16:00 73 02/09/17 15:05 97.5 62 20 113/60 95 02/09/17 13:10 63 99/54 02/09/17 13:00 65 02/09/17 12:45 98.1 68 18 88/51 95 02/09/17 12:14 87/51 I/O 02/09/17 02/09/17 02/09/17 02/10/17 02/10/17 02/10/17 06:59 14:59 22:59 06:59 14:59 22:59 Intake Total 500 ml 450 ml Balance 500 ml 450 ml Intake Oral 450 ml IV Total 500 ml # Voids 3 2 # Bowel Movements 0 Result Diagram: 02/08/17 0327 02/08/17 1455 Imaging Last Impressions Head CT 02/07/17 1521 Signed Impressions: Service Date/Time: Tuesday, February 07, 2017 16:26 - CONCLUSION: 1. No acute abnormality is seen. 2. Age-related atrophy and suspected small vessel ischemic change in the white matter. Julio Cesar Fernández MD Chest X-Ray 02/07/17 1521 Signed Impressions: Service Date/Time: Tuesday, February 07, 2017 15:26 - CONCLUSION: No acute disease. Naveed Vasques Jr., MD Objective Remarks GENERAL: elderly male, in no apparent distress. CARDIOVASCULAR: Regular rate and regular rhythm without murmurs, gallops, or rubs. RESPIRATORY: Clear to auscultation. Breath sounds equal bilaterally. No wheezes , rales, or rhonchi. GASTROINTESTINAL: Abdomen soft, non-tender, nondistended. Normal, active bowel sounds MUSCULOSKELETAL: Extremities without clubbing, cyanosis, or edema. NEURO: Alert & Oriented x4 to person, place, time, situation. Moves all ext x4 Procedures none Medications and IVs Current Medications Methylprednisolone Sodium Succinate (SoluMEDROL INJ) 125 mg ONCE ONCE IVP Last administered on 02/07/17 16:51; Start 02/07/17 at 15:30; Stop 02/07/17 at 15:31; Status DC Albuterol Sulfate (Albuterol Neb) 2.5 mg Q15M INH Last administered on 16:01; Start 02/07/17 at 15:30; Stop 02/07/17 at 15:46; Status DC Lisinopril (Prinivil) 10 mg ONCE ONCE PO Last administered on 02/07/17 17:57 ; Start 02/07/17 at 17:30; Stop 02/07/17 at 17:31; Status DC Metoprolol Tartrate (Lopressor) 25 mg ONCE ONCE PO Last administered on 17:57; Start 02/07/17 at 17:30; Stop 02/07/17 at 17:31; Status DC Sodium Chloride (NS Flush) 2 ml UNSCH PRN IV FLUSH FLUSH AFTER USING IV ACCESS ; Start 02/07/17 at 20:00 Sodium Chloride (NS Flush) 2 ml BID IV FLUSH Last administered on 02/10/17 10: 10; Start 02/07/17 at 21:00 Naloxone HCl (Narcan Inj) 0.4 mg UNSCH PRN IV SEE LABEL COMMENTS; Start at 20:00 Albuterol/ Ipratropium (Duoneb Neb) 1 ampule Q6HR NEB NEB Last administered on 02/10/17 03:14; Start 02/07/17 at 22:00 Albuterol/ Ipratropium (Duoneb Neb) 1 ampule Q2HR NEB PRN NEB wheezing; Start 02/07/17 at 20:15 Aspirin (Aspirin Chew) 81 mg DAILY CHEW Last administered on 02/10/17 10:09; Start 02/08/17 at 09:00 Bupropion HCl (Wellbutrin) 150 mg BID PO Last administered on 02/10/17 10:09; Start 02/08/17 at 09:00 Cholecalciferol (Vitamin D3) 1,000 units DAILY PO Last administered on 10:09; Start 02/08/17 at 09:00 Clopidogrel Bisulfate (Plavix) 75 mg DAILY PO Last administered on 02/10/17 10 :09; Start 02/08/17 at 09:00 Lisinopril (Prinivil) 10 mg DAILY PO Last administered on 02/09/17 10:20; Start 02/08/17 at 09:00; Status Hold Metoprolol Tartrate (Lopressor) 25 mg DAILY PO Last administered on 02/09/17 10:19; Start 02/08/17 at 09:00; Status Hold Pravastatin Sodium (Pravachol) 80 mg DAILY PO Last administered on 02/10/17 10 :09; Start 02/08/17 at 09:00 Quetiapine Fumarate (SEROquel) 200 mg DAILY PO Last administered on 02/10/17 10:09; Start 02/08/17 at 09:00 Escitalopram Oxalate 10 mg 10 mg DAILY PO Last administered on 02/10/17 10:09 ; Start 02/08/17 at 09:00 Sodium Chloride 250 ml @ 250 mls/hr BOLUS ONCE IV Last administered on 12:30; Start 02/09/17 at 14:00; Stop 02/09/17 at 14:59; Status DC Sodium Chloride (NS 250 ml Inj) 250 ml @ 250 mls/hr BOLUS ONCE IV Last administered on 02/09/17 12:50; Start 02/09/17 at 15:00; Stop 02/09/17 at 15:59 ; Status DC A/P Assessment and Plan A/P Copd exacerbation Chest x ray reviewed and is unremarkable -continue neb treatment -Incentive spirometer ordered HTN, chronic -Resumed home medications lisinopril and metoprolol; will lower the dose of lisinopril due to occasional low-normal BP's- Protein- calorie malnutrition, patient states it is difficult to cook for himself -Consult case management for possible shelter or snf CKD, creatine 1.3, at baseline -Avoid nephrotoxins -Trend BMP consulted PT DVT prophylaxis: SCDs Discharge Planning discharge to SNF today. see med list. f/u; pcp. d/w the patient and case management. d/w the RN. time spent 32 min. Regan Higgins MD Feb 10, 2017 11:02
[2017-02-10] MEDS ORDERED: LISI-519 PO (11:03)
--- NOTE | 2017-02-10 11:05 | HHI.DCPOC ---
Discharge Care Plan Diagnosis: (1) COPD with exacerbation Your Health Problems Are: Shortness of Breath Goals to Promote Your Health * To prevent worsening of your condition and complications * To maintain your health at the optimal level Directions to Meet Your Goals Take your medications as prescribed Follow your dietary instruction Follow activity as directed Keep your appointments as scheduled Take your immunizations and boosters as scheduled If your symptoms worsen call your PCP, if no PCP go to Urgent Care Center or Emergency Room Smoking is Dangerous to Your Health. Avoid second hand smoke Call the 24-hour hour crisis hotline for domestic abuse at Regan Higgins MD Feb 10, 2017 11:05
--- NOTE | 2017-02-10 11:06 | HHI.DS ---
Discharge Summary Admission Date Feb 07, 2017 at 19:19 Discharge Date: Feb 10, 2017 Admitting Diagnosis COPD exacerbation, altered, hypoxia (1) COPD with exacerbation ICD Code: J44.1 Diagnosis: Principal (2) HTN (hypertension) ICD Code: I10 Diagnosis: Secondary Procedures none Brief History - From Admission Written by AFRICA Freire acting as scribe for [Stephane] on 02/08/17 at 02: 18. 86 y/o with a history of copd, cad, HLD, depression and htn presented to the ED with complaints of not being able to breath. He states he has had a hard time breathing for about a week. He denies any cough, nausea, vomiting, chest pain, fevers or chills. He does not know what he takes his medication for, but states his daughter gives him his medication, and sets up his pill box. Patient states he is not eating a lot because he lives alone and its hard for him to cook for himself. CBC/BMP: 02/08/17 0327 02/08/17 1455 Significant Findings Laboratory Tests Test 02/07/17 02/08/17 02/08/17 02/08/17 15:29 03:10 03:27 14:55 Blood Urea Nitrogen 22 MG/DL (7-18) 33 MG/DL (7-18) Creatinine 1.33 MG/DL 1.41 MG/DL (0.60-1.30) (0.60-1.30) Estimat Glomerular Filtration 51 ML/MIN (>89) 47 ML/MIN (>89) Rate Alanine Aminotransferase 11 U/L (12-78) (ALT/SGPT) Alkaline Phosphatase 146 U/L (45-117) B-Type Natriuretic Peptide 451 PG/ML (0-100) Red Blood Count 4.16 MIL/MM3 3.95 MIL/MM3 (4.50-5.90) (4.50-5.90) Hemoglobin 11.7 GM/DL 11.3 GM/DL (13.0-17.0) (13.0-17.0) Hematocrit 36.0 % 34.0 % (39.0-51.0) (39.0-51.0) Monocytes (%) (Auto) 8.1 % (0.0-8.0) Troponin I LESS THAN 0.02 NG/ML (0.02-0.05) Neutrophils (%) (Auto) 83.8 % (16.0-70.0) Lymphocytes # (Auto) 0.8 TH/MM3 (1.0-4.8) Random Glucose 113 MG/DL (74-106) Imaging Last Impressions Head CT 02/07/17 1521 Signed Impressions: Service Date/Time: Tuesday, February 07, 2017 16:26 - CONCLUSION: 1. No acute abnormality is seen. 2. Age-related atrophy and suspected small vessel ischemic change in the white matter. Julio Cesar Fernández MD Chest X-Ray 02/07/17 1521 Signed Impressions: Service Date/Time: Tuesday, February 07, 2017 15:26 - CONCLUSION: No acute disease. Naveed Vasques Jr., MD PE at Discharge GENERAL: elderly male, in no apparent distress. CARDIOVASCULAR: Regular rate and regular rhythm without murmurs, gallops, or rubs. RESPIRATORY: Clear to auscultation. Breath sounds equal bilaterally. No wheezes , rales, or rhonchi. GASTROINTESTINAL: Abdomen soft, non-tender, nondistended. Normal, active bowel sounds MUSCULOSKELETAL: Extremities without clubbing, cyanosis, or edema. NEURO: Alert & Oriented x4 to person, place, time, situation. Moves all ext x4 Hospital Course Copd exacerbation Chest x ray reviewed and is unremarkable -continue neb treatment -Incentive spirometer ordered HTN, chronic -Resumed home medications lisinopril and metoprolol; will lower the dose of lisinopril due to occasional low-normal BP's- Protein- calorie malnutrition, patient states it is difficult to cook for himself -Consult case management for possible [facility] or snf CKD, creatine 1.3, at baseline -Avoid nephrotoxins -Trend BMP consulted PT DVT prophylaxis: SCDs Pt Condition on Discharge: Fair Discharge Disposition: Discharge to SNF Discharge Time: > 30 minutes Discharge Instructions DIET: Follow Instructions for: Heart Healthy Diet Activities you can perform: Regular-No Restrictions Follow up Referrals: PCP Follow-up New Medications: Lisinopril (Lisinopril) 5 Mg Tab 5 MG PO DAILY Blood Pressure Management #30 Ref 0 TAB Ipratropium-Albuterol Neb (Duoneb) 0.5-2.5 Mg/3 Ml Neb 1 AMPULE NEB Q6HR NEB PRN SHORTNESS OF BREATH Days 7 Ref 0 ML Changed Medications: Docusate Sodium (Colace) 100 Mg Capsule 100 MG PO BID PRN CONSTIPATION #10 Ref 0 TAB (Changed from: Refills: ) Continued Medications: Aspirin (Aspirin) 81 Mg Chew 81 MG CHEW DAILY antiplatelet Days 30 Ref 0 TAB (This prescription has been renewed) Bupropion HCl (Bupropion HCl) 100 Mg Tab 150 MG PO BID Control Depression #20 Ref 0 TAB (This prescription has been renewed) Cholecalciferol (Vitamin D3) 1,000 Unit Chew 1000 UNITS CHEW DAILY Nutritional Supplement #1 Ref 0 BOTTLE (This prescription has been renewed) Clopidogrel (Plavix) 75 Mg Tab 75 MG PO DAILY Blood Clot Prevention #30 Ref 0 TAB (This prescription has been renewed) Escitalopram Liq (Escitalopram Liq) 5 Mg/5 Ml Soln 10 MG PO DAILY depression #300 ML (This prescription has been renewed) Metoprolol Tartrate (Metoprolol Tartrate) 25 Mg Tab 25 MG PO DAILY hypertension #30 Ref 0 TAB (This prescription has been renewed) Pravastatin (Pravastatin) 80 Mg Tab 80 MG PO DAILY Cholesterol Management #30 Ref 0 TAB (This prescription has been renewed) Quetiapine (Seroquel) 200 Mg Tab 200 MG PO DAILY anxiety #30 Ref 0 TAB (This prescription has been renewed) Tramadol (Tramadol) 50 Mg Tab 50 MG PO Q4H PRN PAIN #15 Ref 0 TAB (This prescription has been renewed) Regan Higgins MD Feb 10, 2017 11:06
--- NOTE | 2017-02-10 14:52 | HHI.PR ---
Addendum To [facility] Progress Not Reason for addendum: Additonal documentation (was notified by the RN that the patient is somewhat lethargic- will hold seoquel and lexapro- check UA and continue to monitor- hold discharge for now.) Regan Higgins MD Feb 10, 2017 14:52
[2017-02-10] MEDS ORDERED: BISACODYL 10 MG SUPP RECTAL PRN (15:00)
[2017-02-10] MEDS: SODIUM CHLOR 0.9% 1000 ML INJ 1,000 ML IV SCH (22:36)
[2017-02-11] VITALS (11 sets, daily range): BP systolic 128–181; BP diastolic 59–98; PULSE 60–75; RESP 16–18; TEMP 95.8–98.3; O2SAT 93–97
[2017-02-11 01:06] LABS: BACTERIA, URINE FEW /hpf; BLOOD, URINE NEG (NEG); COMMENT (UR) CULTURE INDICATED; CULTURE IF INDICATED CULTURE INDICATED; GLUCOSE,URINE NEG (NEG); KETONE, URINE NEG (NEG); NITRITE,URINE NEG (NEG); URINE COLOR YELLOW (YELLW/STRAW)
[2017-02-11] MEDS: RESP: ALBUTEROL 2.5 MG/IPRATROPIUM 0.5 MG NEB (SCH) NEB ×4 (03:41→20:47)
[2017-02-11] MEDS: ASPIRIN 81 MG CHEW TAB CHEW SCH (08:05)
[2017-02-11] MEDS: CLOPIDOGREL 75 MG TAB PO SCH (08:06)
[2017-02-11] MEDS: PRAVASTATIN SOD 80 MG TAB PO SCH (08:06)
[2017-02-11] MEDS: CHOLECALCIFEROL (VIT D3) 1000 UNIT TAB PO SCH (08:06)
[2017-02-11] MEDS: SODIUM CHLOR 0.9% 1000 ML INJ 1,000 ML IV SCH ×2 (09:35→22:30)
--- NOTE | 2017-02-11 12:16 | HHI.PR ---
Subjective Remarks Pt states he feels ok. He is very hard of hearing. No pain, no nausea or vomiting. Discussed w RN, pt was more lethargic overnight. Pt having trouble urinating as well. She has bladder scanned him and noted ~500cc. Pt has already been straight cath once. u/a concerning for uti not on abx Objective Vitals Vital Signs Date Time Temp Pulse Resp B/P Pulse Ox O2 Delivery O2 Flow Rate FiO2 02/11/17 12:05 96.7 71 17 162/94 93 02/11/17 09:58 93 Nasal Cannula 21 02/11/17 08:00 96.8 70 18 155/89 95 02/11/17 07:25 73 02/11/17 04:00 97.7 67 17 128/70 97 02/11/17 03:44 93 21 02/11/17 00:00 98.3 60 16 137/59 96 02/10/17 20:00 65 02/10/17 20:00 97.0 54 16 122/72 94 02/10/17 18:26 Room Air 02/10/17 16:06 96 21 02/10/17 16:00 96.7 67 16 137/76 93 I/O 02/10/17 02/10/17 02/10/17 02/11/17 02/11/17 02/11/17 07:00 15:00 23:00 07:00 15:00 23:00 Intake Total 402 ml 583 ml Balance 402 ml 583 ml Intake Oral 120 ml 180 ml IV Total 282 ml 403 ml Bladder Scan Volume Amount 575 ml 544 ml Result Diagram: 02/08/17 0327 02/08/17 1455 Imaging Last Impressions Head CT 02/07/17 1521 Signed Impressions: Service Date/Time: Tuesday, February 07, 2017 16:26 - CONCLUSION: 1. No acute abnormality is seen. 2. Age-related atrophy and suspected small vessel ischemic change in the white matter. Julio Cesar Fernández MD Chest X-Ray 02/07/17 1521 Signed Impressions: Service Date/Time: Tuesday, February 07, 2017 15:26 - CONCLUSION: No acute disease. Naveed Vasques Jr., MD Objective Remarks GENERAL: elderly male, laying in bed, hard of hearing CARDIOVASCULAR: Regular rate and regular rhythm without murmurs RESPIRATORY: Clear to auscultation. Breath sounds equal bilaterally. No wheezes GASTROINTESTINAL: Abdomen soft, non-tender, nondistended. MUSCULOSKELETAL: Extremities without edema. NEURO: Alert & Oriented. Moves all ext x4 Procedures none A/P Problem List: (1) COPD with exacerbation ICD Code: J44.1 Status: Acute (2) HTN (hypertension) ICD Code: I10 Status: Chronic Assessment and Plan Copd exacerbation Chest x ray reviewed and is unremarkable -continue neb treatment -Incentive spirometer ordered HTN, chronic -lisinopril 5mg po daily. start doxazosin at bedtime for urinary retention. hold metoprolol Protein- calorie malnutrition, patient states it is difficult to cook for himself -Pt will be discharged to SNF. UTI: u/a concerning for uti. pt apparently yesterday was more lethargic. will start him on rocephin IV daily. F/u urine cx. urinary retention: insert santoro. will need voiding trials to remove santoro as an outpatient. CKD, creatine 1.3, at baseline -Avoid nephrotoxins -Trend BMP PT following DVT prophylaxis: heparin Discharge Planning anticipate d/c to SNF tomorrow after urine cx resulted. Problem Qualifiers (1) HTN (hypertension): Qualified Code: I10 - Essential hypertension Lynda Madera MD Feb 11, 2017 12:16
[2017-02-11] MEDS: cefTRIAXone INJ 1,000 MG in SODIUM CHLORIDE 0.9% INJ 100 ML IV SCH (13:02)
[2017-02-11] MEDS: LISINOPRIL 5 MG TAB PO SCH (13:30)
[2017-02-11] MEDS ORDERED: amLODIPine BESYLATE 5 MG TAB PO ONE (19:00)
[2017-02-11] MEDS ORDERED: hydrALAZINE HCL 10 MG TAB PO PRN (19:00)
[2017-02-11] MEDS: DOXAZOSIN MESYLATE 1 MG TAB PO SCH (22:30)
[2017-02-11] MEDS: SODIUM CHLORIDE 0.9% FLUSH 10 ML FLUSH IV FLUSH SCH (22:30)
[2017-02-11] MEDS: HEPARIN SODIUM - SQ 10,000 UNITS/ML VIAL SQ SCH (22:30)
[2017-02-12] VITALS (8 sets, daily range): BP systolic 118–185; BP diastolic 68–88; PULSE 18–84; RESP 18; TEMP 96.1–97.8; O2SAT 93–100
[2017-02-12] MEDS: SODIUM CHLORIDE 0.9% FLUSH 10 ML FLUSH IV FLUSH SCH ×2 (09:00→22:28)
[2017-02-12] MEDS: SODIUM CHLOR 0.9% 1000 ML INJ 1,000 ML IV SCH (09:15)
[2017-02-12] MEDS: ASPIRIN 81 MG CHEW TAB CHEW SCH (10:04)
[2017-02-12] MEDS: HEPARIN SODIUM - SQ 10,000 UNITS/ML VIAL SQ SCH ×2 (10:04→22:28)
[2017-02-12] MEDS: PRAVASTATIN SOD 80 MG TAB PO SCH (10:04)
[2017-02-12] MEDS: CLOPIDOGREL 75 MG TAB PO SCH (10:04)
[2017-02-12] MEDS: amLODIPine BESYLATE 5 MG TAB PO SCH (10:04)
[2017-02-12] MEDS: cefTRIAXone INJ 1,000 MG in SODIUM CHLORIDE 0.9% INJ 100 ML IV SCH (11:49)
[2017-02-12] MEDS: CHOLECALCIFEROL (VIT D3) 1000 UNIT TAB PO SCH (12:25)
[2017-02-12] MEDS: LISINOPRIL 5 MG TAB PO SCH (12:25)
--- NOTE | 2017-02-12 14:46 | HHI.PR ---
Subjective Remarks Pt states he is bored and would like to be discharged soon. He explains to me that he doesn't have his hearing aids and cannot hear very well and his vision is not too good either so he can't really watch TV. He denies any CP/SOB/N/V Objective Vitals Vital Signs Date Time Temp Pulse Resp B/P (MAP) Pulse Ox O2 Delivery O2 Flow Rate FiO2 02/12/17 12:00 96.1 80 18 139/84 (102) 94 02/12/17 08:00 97.7 81 18 118/69 (85) 93 02/12/17 04:00 97.6 83 18 142/76 (98) 95 02/12/17 00:20 97.0 18 18 155/77 (103) 97 02/11/17 20:47 94 21 02/11/17 20:37 97.7 71 18 174/ 94 02/11/17 20:10 74 02/11/17 18:58 Room Air 02/11/17 16:00 95.8 75 17 181/98 (125) 95 I/O 02/11/17 02/11/17 02/11/17 02/12/17 02/12/17 02/12/17 07:00 15:00 23:00 07:00 15:00 23:00 Intake Total 583 ml 720 ml 930 ml 626 ml Output Total 1000 ml 500 ml 300 ml Balance 583 ml -280 ml 430 ml 326 ml Intake Oral 180 ml 720 ml IV Total 403 ml 930 ml 626 ml Output Urine Total 1000 ml 500 ml 300 ml Bladder Scan Volume Amount 544 ml # Bowel Movements 0 2 Result Diagram: 02/08/17 0327 02/08/17 1455 Imaging Last Impressions Head CT 02/07/17 1521 Signed Impressions: Service Date/Time: Tuesday, February 07, 2017 16:26 - CONCLUSION: 1. No acute abnormality is seen. 2. Age-related atrophy and suspected small vessel ischemic change in the white matter. Julio Cesar Fernández MD Chest X-Ray 02/07/17 1521 Signed Impressions: Service Date/Time: Tuesday, February 07, 2017 15:26 - CONCLUSION: No acute disease. Naveed Vasques Jr., MD Objective Remarks GENERAL: elderly male, laying in bed, hard of hearing CARDIOVASCULAR: Regular rate and regular rhythm without murmurs RESPIRATORY: Clear to auscultation. Breath sounds equal bilaterally. No wheezes GASTROINTESTINAL: Abdomen soft, non-tender, nondistended. MUSCULOSKELETAL: Extremities without edema. NEURO: Alert & Oriented. Moves all ext x4. much more alert today Procedures none A/P Problem List: (1) COPD with exacerbation ICD Code: J44.1 - Chronic obstructive pulmonary disease with (acute) exacerbation Status: Acute (2) HTN (hypertension) ICD Code: I10 - Essential (primary) hypertension Status: Chronic Assessment and Plan Copd exacerbation Chest x ray reviewed and is unremarkable -continue neb treatment -Incentive spirometer ordered HTN, chronic -lisinopril 5mg po daily.on doxazosin at bedtime for urinary retention. will resume metoprolol Protein- calorie malnutrition, patient states it is difficult to cook for himself -Pt will be discharged to SNF. UTI: u/a concerning for uti. pt apparently 2 days was more lethargic. currently on rocephin IV daily and improving. F/u urine cx. I did call the microbiology lab but culture is growing but too early to identify bacteria. urinary retention: insert santoro. will need voiding trials to remove santoro as an outpatient. CKD, creatine 1.3-1.41, at baseline -Avoid nephrotoxins -repeat in AM PT following DVT prophylaxis: heparin Discharge Planning anticipate d/c to SNF tomorrow after urine cx resulted. Problem Qualifiers (1) HTN (hypertension): Lynda Madera MD Feb 12, 2017 14:46
[2017-02-12] MEDS: DOXAZOSIN MESYLATE 1 MG TAB PO SCH (22:28)
[2017-02-13 04:30] VITALS: BP 179/89; PULSE 69; RESP 17; TEMP 96.7; O2SAT 93
[2017-02-13] MEDS: cloNIDine HCL 0.1 MG TAB PO PRN (05:27)
[2017-02-13] MEDS: SODIUM CHLOR 0.9% 1000 ML INJ 1,000 ML IV SCH ×2 (05:27→14:55)
[2017-02-13 06:36] LABS: BICARBONATE 24.1 MEQ/L (21.0-32.0); POTASSIUM 3.4 MEQ/L (3.5-5.1)
[2017-02-13 08:00] VITALS: BP 127/69; PULSE 60; RESP 19; TEMP 96.1; O2SAT 94
[2017-02-13] MEDS: SODIUM CHLORIDE 0.9% FLUSH 10 ML FLUSH IV FLUSH SCH ×2 (09:00→21:00)
[2017-02-13] MEDS: amLODIPine BESYLATE 5 MG TAB PO SCH (09:15)
[2017-02-13] MEDS: CHOLECALCIFEROL (VIT D3) 1000 UNIT TAB PO SCH (09:15)
[2017-02-13] MEDS: ASPIRIN 81 MG CHEW TAB CHEW SCH (09:15)
[2017-02-13] MEDS: PRAVASTATIN SOD 80 MG TAB PO SCH (09:15)
[2017-02-13] MEDS: CLOPIDOGREL 75 MG TAB PO SCH (09:15)
[2017-02-13 09:20] VITALS: PULSE 54
[2017-02-13] MEDS: HEPARIN SODIUM - SQ 10,000 UNITS/ML VIAL SQ SCH ×2 (09:20→22:46)
[2017-02-13] MEDS: LISINOPRIL 5 MG TAB PO SCH (09:21)
[2017-02-13] MEDS: cefTRIAXone INJ 1,000 MG in SODIUM CHLORIDE 0.9% INJ 100 ML IV SCH (12:50)
--- NOTE | 2017-02-13 15:23 | HHI.PR ---
Subjective Remarks Pt has no complaints. Wants to sleep, denies any pain, SOB, n/v Objective Vitals Vital Signs Date Time Temp Pulse Resp B/P (MAP) Pulse Ox O2 Delivery O2 Flow Rate FiO2 02/13/17 09:20 54 02/13/17 08:00 96.1 60 19 127/69 (88) 94 02/13/17 04:30 96.7 69 17 179/89 (119) 93 02/12/17 23:51 97.8 73 18 185/85 (118) 100 02/12/17 20:19 97.4 66 18 157/88 (111) 94 02/12/17 20:00 84 02/12/17 16:00 97.3 66 18 153/68 (96) 97 I/O 02/12/17 02/12/17 02/12/17 02/13/17 02/13/17 02/13/17 07:00 15:00 23:00 07:00 15:00 23:00 Intake Total 626 ml 820 ml 1528 ml 240 ml 971 ml Output Total 300 ml 350 ml 525 ml 250 ml Balance 326 ml 470 ml 1003 ml -10 ml 971 ml Intake Oral 720 ml 360 ml 240 ml IV Total 626 ml 100 ml 1168 ml 971 ml Output Urine Total 300 ml 350 ml 525 ml 250 ml # Bowel Movements 2 4 0 0 Result Diagram: 02/07/17 1529 02/13/17 0520 Imaging Last Impressions Head CT 02/07/17 1521 Signed Impressions: Service Date/Time: Tuesday, February 07, 2017 16:26 - CONCLUSION: 1. No acute abnormality is seen. 2. Age-related atrophy and suspected small vessel ischemic change in the white matter. Julio Cesar Fernández MD Chest X-Ray 02/07/17 1521 Signed Impressions: Service Date/Time: Tuesday, February 07, 2017 15:26 - CONCLUSION: No acute disease. Naveed Vasques Jr., MD Objective Remarks GENERAL: elderly male, laying in bed, hard of hearing CARDIOVASCULAR: Regular rate and regular rhythm without murmurs RESPIRATORY: Clear to auscultation. Breath sounds equal bilaterally. No wheezes GASTROINTESTINAL: Abdomen soft, non-tender, nondistended. MUSCULOSKELETAL: Extremities without edema. NEURO: Alert & Oriented. Moves all ext x4. Procedures none A/P Problem List: (1) COPD with exacerbation ICD Code: J44.1 - Chronic obstructive pulmonary disease with (acute) exacerbation Status: Acute (2) HTN (hypertension) ICD Code: I10 - Essential (primary) hypertension Status: Chronic Assessment and Plan Copd exacerbation Chest x ray reviewed and is unremarkable -continue neb treatment -Incentive spirometer. - stable HTN, chronic -lisinopril 5mg po daily.on doxazosin at bedtime for urinary retention. hold metoprolol Protein- calorie malnutrition, patient states it is difficult to cook for himself -Pt will be discharged to SNF. UTI: u/a concerning for uti. pt apparently 2 days was more lethargic. currently on rocephin IV daily and improving. urine cx growing strep viridans. ID consult in place urinary retention: Pt has urinatry retention requiring santoro insertion. will need voiding trials to remove santoro as an outpatient. CKD, creatine 1.3-->1.41-->0.95 -Avoid nephrotoxins PT following DVT prophylaxis: heparin Discharge Planning anticipate d/c to SNF tomorrow once cleared by ID. Problem Qualifiers (1) HTN (hypertension): Lynda Madera MD Feb 13, 2017 15:23
[2017-02-13 16:00] VITALS: BP 131/72; PULSE 61; RESP 19; TEMP 96.5; O2SAT 95
[2017-02-13 19:59] VITALS: PULSE 53
[2017-02-13 20:35] VITALS: BP 138/65; PULSE 60; RESP 18; TEMP 96.3; O2SAT 95
[2017-02-13] MEDS: DOXAZOSIN MESYLATE 1 MG TAB PO SCH (22:46)
[2017-02-14] VITALS (8 sets, daily range): BP systolic 154–175; BP diastolic 76–87; PULSE 54–65; RESP 18–20; TEMP 96.3–97.5; O2SAT 93–97
[2017-02-14] MEDS: cloNIDine HCL 0.1 MG TAB PO PRN (00:58)
[2017-02-14] MEDS: SODIUM CHLOR 0.9% 1000 ML INJ 1,000 ML IV SCH ×3 (02:55→17:33)
[2017-02-14] MEDS: SODIUM CHLORIDE 0.9% FLUSH 10 ML FLUSH IV FLUSH SCH (09:00)
[2017-02-14] MEDS: LISINOPRIL 5 MG TAB PO SCH (10:33)
[2017-02-14] MEDS: CLOPIDOGREL 75 MG TAB PO SCH (10:33)
[2017-02-14] MEDS: CHOLECALCIFEROL (VIT D3) 1000 UNIT TAB PO SCH (10:33)
[2017-02-14] MEDS: PRAVASTATIN SOD 80 MG TAB PO SCH (10:33)
[2017-02-14] MEDS: ASPIRIN 81 MG CHEW TAB CHEW SCH (10:34)
[2017-02-14] MEDS: amLODIPine BESYLATE 5 MG TAB PO SCH (10:34)
[2017-02-14] MEDS: HEPARIN SODIUM - SQ 10,000 UNITS/ML VIAL SQ SCH (10:35)
[2017-02-14] MEDS: cefTRIAXone INJ 1,000 MG in SODIUM CHLORIDE 0.9% INJ 100 ML IV SCH (13:04)
[2017-02-14] MEDS ORDERED: LISI-519 PO (15:13)
[2017-02-14] MEDS ORDERED: AMLO5 PO (15:13)
[2017-02-14] MEDS ORDERED: CARD1TAB PO (15:13)
[2017-02-14] MEDS ORDERED: amLODIPine BESYLATE 5 MG TAB PO ONE (15:15)
--- NOTE | 2017-02-14 15:25 | HHI.PR ---
Subjective Remarks Pt has no complaints. wants to be discharged. doesn't remember if he ate Objective Vitals Vital Signs Date Time Temp Pulse Resp B/P (MAP) Pulse Ox O2 Delivery O2 Flow Rate FiO2 02/14/17 11:53 96.5 62 18 161/82 (108) 95 02/14/17 10:29 Room Air 02/14/17 10:29 60 02/14/17 07:40 96.3 54 18 154/84 (107) 96 02/14/17 05:10 154/78 (103) 02/14/17 04:15 97.5 59 20 163/80 (107) 93 02/14/17 04:00 Room Air 02/14/17 00:20 96.5 62 19 175/76 (109) 94 02/14/17 00:00 Room Air 02/13/17 20:35 96.3 60 18 138/65 (89) 95 02/13/17 20:00 Room Air 02/13/17 19:59 53 02/13/17 16:00 96.5 61 19 131/72 (91) 95 I/O 02/13/17 02/13/17 02/13/17 02/14/17 02/14/17 02/14/17 06:59 14:59 22:59 06:59 14:59 22:59 Intake Total 240 ml 971 ml 960 ml 1353 ml Output Total 250 ml 2025 ml 225 ml Balance -10 ml 971 ml -1065 ml 1128 ml Intake Oral 240 ml 960 ml 120 ml IV Total 971 ml 1233 ml Output Urine Total 250 ml 2025 ml 225 ml # Bowel Movements 0 0 0 Result Diagram: 02/13/17 0520 Imaging Last Impressions Head CT 02/07/17 1521 Signed Impressions: Service Date/Time: Tuesday, February 07, 2017 16:26 - CONCLUSION: 1. No acute abnormality is seen. 2. Age-related atrophy and suspected small vessel ischemic change in the white matter. Julio Cesar Fernández MD Chest X-Ray 02/07/17 1521 Signed Impressions: Service Date/Time: Tuesday, February 07, 2017 15:26 - CONCLUSION: No acute disease. Naveed Vasques Jr., MD Objective Remarks GENERAL: elderly male, laying in bed, hard of hearing CARDIOVASCULAR: Regular rate and regular rhythm without murmurs RESPIRATORY: Clear to auscultation. Breath sounds equal bilaterally. No wheezes GASTROINTESTINAL: Abdomen soft, non-tender, nondistended. MUSCULOSKELETAL: Extremities without edema. NEURO: Alert & Oriented. Moves all ext x4. Procedures none A/P Problem List: (1) COPD with exacerbation ICD Code: J44.1 - Chronic obstructive pulmonary disease with (acute) exacerbation Status: Acute (2) HTN (hypertension) ICD Code: I10 - Essential (primary) hypertension Status: Chronic Assessment and Plan Copd exacerbation Chest x ray reviewed and is unremarkable -continue neb treatment -Incentive spirometer. -stable HTN, chronic -lisinopril 5mg po daily. increased amolodipine to 10mg po daily. on doxazosin at bedtime for urinary retention. hold metoprolol due to bradycardia. Protein- calorie malnutrition, patient states it is difficult to cook for himself Pt will be discharged to SNF. UTI: urine cx growing strep viridans. ID consult in place. awaiting final recs. continue rocephin for now. urinary retention: Pt has urinatry retention requiring santoro insertion. will need voiding trials to remove santoro as an outpatient. f/u w urology as an outpatient. CKD, creatine 1.3-->1.41-->0.95 -Avoid nephrotoxins Discharge Planning anticipate d/c to SNF once evaluated by ID and recs made. Problem Qualifiers (1) HTN (hypertension): Lynda Madera MD Feb 14, 2017 15:25
--- NOTE | 2017-02-14 16:58 | PD.ID.CON ---
History of Present Illness Service ID Consult Requested By Dr Paez Reason for Consult UTI Primary Care Physician Unknown Diagnoses: History of Present Illness 86 yo male admitted 1 week ago with COPD exacerbation He apparently had a santoro placed during admitssion which was taken out few days ago, but was placed back 2/2 urinary retention He became lethargic and urinalysis was obtained and it was positive He grew out > 100 K CFU of viridans streptococci He is on Rocephin sinc 02/11 Pt MS change resolved He is ready to be discharged today Review of Systems ROS Limitations: Clinical Condition, Poor Historian Past Family Social History Allergies: Coded Allergies: No Known Allergies (Verified , 02/07/17) Past Medical History copd cad HLD depression htn Past Surgical History rectal fissure repair Active Ordered Medications Medications where reviewed in EMR Antibiotics Include: CFTX Family History reviewewd; non contributory Social History + 1 ppd Tobacco. No ETOH. Quit yrs ago No Illicit Drugs. Physical Exam Vital Signs Vital Signs Date Time Temp Pulse Resp B/P (MAP) Pulse Ox O2 Delivery O2 Flow Rate FiO2 02/14/17 16:00 96.5 61 18 172/87 (115) 97 02/14/17 11:53 96.5 62 18 161/82 (108) 95 02/14/17 10:29 Room Air 02/14/17 10:29 60 02/14/17 07:40 96.3 54 18 154/84 (107) 96 02/14/17 05:10 154/78 (103) 02/14/17 04:15 97.5 59 20 163/80 (107) 93 02/14/17 04:00 Room Air 02/14/17 00:20 96.5 62 19 175/76 (109) 94 02/14/17 00:00 Room Air 02/13/17 20:35 96.3 60 18 138/65 (89) 95 02/13/17 20:00 Room Air 02/13/17 19:59 53 Physical Exam CONSTITUTIONAL/GENERAL: This is a thin poorly nourished patient, in no apparent distress. TUBES/LINES/DRAINS: SKIN: No jaundice, rashes, or lesions. Ecchymoses on upper extremities. kin temperature appropriate. Not diaphoretic. HEAD: Atraumatic. Normocephalic. EYES: Pupils equal and round and reactive. Extraocular motions intact. No scleral icterus. No injection or drainage. Fundi not examined. ENT: Hearing grossly normal. Nose without bleeding or purulent drainage. Otral mucosae dryishwithout visible erythema, exudates, masses, or lesions. Mouth breather. Edentulous NECK: Trachea midline. Supple, nontender. No palpable thyroid enlargement or nodularity. CARDIOVASCULAR: Regular rate and rhythm without murmurs, gallops, or rubs. No JVD. Peripheral pulses symmetric. RESPIRATORY/CHEST: Symmetric, unlabored respirations. Clear to auscultation. Breath sounds equal bilaterally. No wheezes, rales, or rhonchi. GASTROINTESTINAL: Abdomen soft, non-tender, nondistended. No hepato-splenomegaly , or palpable masses. No guarding. Bowel sounds present. GENITOURINARY: Without palpable bladder distension. Santoro catheter in place with clear lifght yellow urine MUSCULOSKELETAL: Extremities without clubbing, cyanosis, or edema. No joint tenderness or effusion noted. No calf tenderness. No mottling or clubbing. LYMPHATICS: No palpable cervical or supraclavicular adenopathy. NEUROLOGICAL: Awake and alert.Confused Motor and sensory grossly within normal limits. Follows commands.. Moves all extremities. PSYCHIATRIC: No obvious anxiety/depression. no apparent hallucinations or other psychotic thought process. Laboratory Date/Time Source Procedure Growth Status 02/07/17 16:17 Blood Peripheral Aerobic Blood Culture - Final NO GROWTH IN 5 DAYS Complete 02/07/17 16:17 Blood Peripheral Anaerobic Blood Culture - Final NO GROWTH IN 5 DAYS Complete 02/11/17 00:25 Urine Clean Catch Urine Culture - Final Viridans Streptococcus Grp Complete Result Diagram: 02/13/17 0520 Imaging Last Impressions Head CT 02/07/17 1521 Signed Impressions: Service Date/Time: Tuesday, February 07, 2017 16:26 - CONCLUSION: 1. No acute abnormality is seen. 2. Age-related atrophy and suspected small vessel ischemic change in the white matter. Julio Cesar Fernández MD Chest X-Ray 02/07/17 1521 Signed Impressions: Service Date/Time: Tuesday, February 07, 2017 15:26 - CONCLUSION: No acute disease. Naveed Vasques Jr., MD Assessment and Plan Assessment and Plan UTI, viridans strep presented as mental status change sp Rocephin 4 days Admitted for COPD change to Levaquine 500 mg po daily x 1 week OK to dc to halfway Discussed Condition With Ella Rice MD Feb 14, 2017 16:58
[2017-02-14] MEDS ORDERED: LEVA500T20 PO (17:39)
--- NOTE | 2017-02-27 17:52 | PQ ---
Physician Query Response Document PATIENT: EDGARDO GOMEZ : 1930 ADMIT DATE: 02/07/2017 7:19 PM DISCH DATE: 02/14/2017 6:43 PM RESPONDING PROVIDER #: [email or web address] QUERY TEXT: Kidney Disease, Chronic CKD Stage Chronic Kidney Disease (CKD) is documented in the Medical Record. Please specify the disease stage ( includes probable or suspected) Such as: -- Chronic kidney disease Stage 1 -- Chronic kidney disease Stage 2 -- Chronic kidney disease Stage 3 -- Chronic kidney disease Stage 4 -- Chronic kidney disease Stage 5 -- Chronic kidney disease Stage 5, requiring dialysis -- End Stage Renal Disease -- Other, please specify Stages are defined by the [employer] as follows: CKD Stage I GFR >= 90 ml / min per 1.73 m2 and persistent albuminuria CKD Stage 2 GFR between 60 and 89 with persistent albuminuria CKD Stage 3 GFR between 30 and 59 CKD Stage 4 GFR between 15 and 29 CKD Stage 5 GFR between <15 or End Stage Renal Disease The patient's Clinical Indicators include: H 02/07/17: BUN 22, Creatinine 1.33, GFR 51 Query created by: Jayce Portillo on 02/14/2017 9:27 AM RESPONSE TEXT: Stage 2 upon discharge Electronically signed by: Lynda Madera MD 02/27/2017 5:48 PM
== END 2017-02-14 18:43 | DRG 191 ==
LOC: NEPE 14:24 → NEDA 19:19 → NEPGCP 21:35 → N06A 02-10 05:25
PROVIDERS: ADMIT Hospitalist; ATTEND Hospitalist
DX: J44.1 Chronic obstructive pulmonary disease with (acute) exacerbation (principal); E46 Unspecified protein-calorie malnutrition; F03.90 Unspecified dementia, unspecified severity, without behavioral disturbance, psychotic disturbance, mood disturbance, and anxiety; Z68.1 Body mass index [BMI] 19.9 or less, adult; N39.0 Urinary tract infection, site not specified; F32.9 Major depressive disorder, single episode, unspecified; F17.210 Nicotine dependence, cigarettes, uncomplicated; H91.90 Unspecified hearing loss, unspecified ear; I25.10 Atherosclerotic heart disease of native coronary artery without angina pectoris; E78.5 Hyperlipidemia, unspecified; I12.9 Hypertensive chronic kidney disease with stage 1 through stage 4 chronic kidney disease, or unspecified chronic kidney disease; N18.9 Chronic kidney disease, unspecified; Z79.82 Long term (current) use of aspirin; Z79.02 Long term (current) use of antithrombotics/antiplatelets
CPT/HCPCS: 70450; 71010; 80048; 80053; 81001; 82550; 83735; 83880; 84443; 84484; 85025; 85610; 85730; 87040; 87086; 93005; 94150; 94640; 94664; 96374; J0696; J1644; J2930; J7030; J7050; J7613

== ENCOUNTER 2017-03-22 22:13 | Inpatient (IN) | payer MEDICARE, OTHER ==
[~2017-03-22] VITALS: Ht 182.9 cm; Wt 57.0 kg
[~2017-03-22 22:13] MED LIST changes: +AMLO5 PO; +ASPI81CH CHEW; +BUPR100T4 PO; +CARD1TAB PO; +CHOL100025 CHEW; +COLA100C PO; -HYDR50TA15 PO; +IPRASOL NEB; +LEVA500T20 PO; +LISI-519 PO; -LISI20 PO; -METO25 PO; -OXYC5 PO; +PLAV75TA29 PO; +PRAV80TA2 PO; +SERO200T PO; -SIMV5TAB32; -TEMA15 PO; +TRAM50TA PO; +[UNRECOGNIZED DRUG - CODE] PO
[2017-03-22] MEDS ORDERED: SODIUM CHLORIDE 0.9% FLUSH 10 ML FLUSH IVF PRN (23:45)
[2017-03-22 23:57] VITALS: BP 127/69; PULSE 125; RESP 16; TEMP 98.6; O2SAT 98
[2017-03-22 23:58] VITALS: BP 127/69; PULSE 125; RESP 18; TEMP 98.6; O2SAT 98
[2017-03-23] VITALS (21 sets, daily range): BP systolic 113–147; BP diastolic 66–80; PULSE 75–127; RESP 16–30; TEMP 97.8–98.7; O2SAT 94–100
--- NOTE | 2017-03-23 00:21 | PD ---
HPI Chief Complaint: Injury Time Seen by Provider: 23:42 Travel History International Travel<30 days: No Contact w/Intl Traveler<30days: No Traveled to known affect area: No History of Present Illness HPI PATIENT HAS BASELINE CONFUSION, UNABLE TO OBTAIN HISTORY FROM PATIENT. PER NH LEFT ANKLE PAIN AFTER A FALL, APPARENTLY NO LOC OR HEAD TRAUMA. 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) Hypertension: Yes Immune Disorder: No Past Surgical History Cholecystectomy: Yes Other Surgery: Yes (RECTAL FISSURE REPAIR IN [facility]) Social History Alcohol Use: No (ALCOHOLIC QUIT DRINKING YEARS AGO ) Tobacco Use: Yes (1 PPD 70) Substance Use: No Allergies-Medications (Allergen,Severity, Reaction): Coded Allergies: No Known Allergies (Verified , 02/07/17) Reported Meds & Prescriptions Reported Meds & Active Scripts Active Levaquin (Levofloxacin) 500 Mg Tablet 500 Mg PO DAILY 7 Days Lisinopril 5 Mg Tab 5 Mg PO DAILY 30 Days Norvasc (Amlodipine Besylate) 5 Mg Tab 10 Mg PO DAILY 30 Days Cardura (Doxazosin Mesylate) 1 Mg Tab 1 Mg PO HS 30 Days Duoneb (Ipratropium-Albuterol Neb) 0.5-2.5 Mg/3 Ml Neb 1 Ampule NEB Q6HR NEB PRN 7 Days Tramadol (Tramadol HCl) 50 Mg Tab 50 Mg PO Q4H PRN Seroquel (Quetiapine Fumarate) 200 Mg Tab 200 Mg PO DAILY Pravastatin 80 Mg Tab 80 Mg PO DAILY Plavix (Clopidogrel Bisulfate) 75 Mg Tab 75 Mg PO DAILY Escitalopram Liq (Escitalopram Oxalate) 5 Mg/5 Ml Soln 10 Mg PO DAILY Colace (Docusate Sodium) 100 Mg Capsule 100 Mg PO BID PRN Vitamin D3 (Cholecalciferol) 1,000 Unit Chew 1,000 Units CHEW DAILY Bupropion HCl 100 Mg Tab 150 Mg PO BID Aspirin 81 Mg Chew 81 Mg CHEW DAILY 30 Days Review of Systems ROS Limitations: Altered Mental Status Physical Exam Exam Limitations: Altered Mental Status, Poor Historian Narrative GENERAL: SKIN: Warm and dry. HEAD: Atraumatic. Normocephalic. EYES: Pupils equal and round. No scleral icterus. No injection or drainage. ENT: No nasal bleeding or discharge. Mucous membranes pink and moist. NECK: Trachea midline. No JVD. CARDIOVASCULAR: Regular rate and rhythm. RESPIRATORY: No accessory muscle use. Clear to auscultation. Breath sounds equal bilaterally. GASTROINTESTINAL: Abdomen soft, non-tender, nondistended. Hepatic and splenic margins not palpable. MUSCULOSKELETAL: Extremities without clubbing, cyanosis, or edema. No obvious deformities. NEUROLOGICAL:AWAKE, CONFUSED. No obvious cranial nerve deficits. Motor grossly within normal limits. Five out of 5 muscle strength in the arms and legs. Normal speech. PSYCHIATRIC: Appropriate mood and affect; insight and judgment normal. Data Data Last Documented VS Vital Signs Date Time Temp Pulse Resp B/P (MAP) Pulse Ox O2 Delivery O2 Flow Rate FiO2 03/23/17 02:24 90 16 114/77 (89) 98 03/23/17 00:16 Room Air 03/22/17 23:58 98.6 Orders Orders Electrocardiogram (03/22/17 23:42) Complete Blood Count With Diff (03/22/17 23:42) Comprehensive Metabolic Panel (03/22/17 23:42) B-Type Natriuretic Peptide (03/22/17 23:42) Troponin I (03/22/17 23:42) Act Partial Throm Time (Ptt) (03/22/17 23:42) Prothrombin Time / Inr (Pt) (03/22/17 23:42) Urinalysis - C+S If Indicated (03/22/17 23:42) Chest, Single Ap (03/22/17 23:42) Ct Brain W/O Iv Contrast(Rout) (03/22/17 23:42) Ecg Monitoring (03/22/17 23:42) Iv Access Insert/Monitor (03/22/17 23:42) Oximetry (03/22/17 23:42) Sodium Chloride 0.9% Flush (Ns Flush) (03/22/17 23:45) Pelvis, Ap Only (Routine) (03/22/17 ) Ankle, Complete (Lyk3lbm) (03/22/17 ) Femur (Ap & Lat/2vws) (03/22/17 ) Tibia/Fibula (Ap/Lat) (03/22/17 ) Sodium Chlorid 0.9% 500 Ml Inj (Ns 500 M (03/23/17 02:15) Enoxaparin Inj (Lovenox Inj) (03/23/17 02:15) Aspirin Chew (Aspirin Chew) (03/23/17 02:15) Admit Order (Ed Use Only) (03/23/17 02:06) Amlodipine (Norvasc) (03/23/17 09:00) Aspirin Chew (Aspirin Chew) (03/23/17 09:00) Bupropion (Wellbutrin) (03/23/17 09:00) Cholecalciferol (Vitamin D3) (03/23/17 09:00) Clopidogrel (Plavix) (03/23/17 09:00) Docusate Sodium (Colace) (03/23/17 02:30) Doxazosin (Cardura) (03/23/17 21:00) Levofloxacin (Levaquin) (03/23/17 09:00) Lisinopril (Prinivil) (03/23/17 09:00) Pravastatin (Pravachol) (03/23/17 09:00) Quetiapine (Seroquel) (03/23/17 09:00) Tramadol (Ultram) (03/23/17 02:30) Escitalopram (Lexapro) (03/23/17 09:00) Place In Observation (03/23/17 ) Code Status (03/23/17 02:18) Vital Signs (Adult) Q4H (03/23/17 02:18) Activity Bed Rest With Brp (03/23/17 ) Skin Carver / Telemetry CHIVO.Q8H (03/23/17 02:18) Diet Heart Healthy (03/23/17 Breakfast) Sodium Chloride 0.9% Flush (Ns Flush) (03/23/17 09:00) Sodium Chloride 0.9% Flush (Ns Flush) (03/23/17 02:30) Nitroglycerin Sl (Nitrostat Sl) (03/23/17 02:30) Acetaminophen (Tylenol) (03/23/17 02:30) Creatine Kinase (Cpk) (03/23/17 02:18) Creatine Kinase (Cpk) (03/23/17 08:18) Troponin I (03/23/17 02:18) Troponin I (03/23/17 08:18) Basic Metabolic Panel (Bmp) (03/24/17 06:00) Complete Blood Count With Diff (03/24/17 06:00) Lipid Profile (03/24/17 06:00) Electrocardiogram (03/23/17 02:18) Electrocardiogram (03/23/17 08:18) Resp Oxygen Herbie C Titrat 1-4 L (03/23/17 ) Consult Cardiology (03/23/17 ) Albuterol-Ipratropium Neb (Duoneb Neb) (03/23/17 02:30) Labs Laboratory Tests Test 03/23/17 00:25 03/23/17 01:22 White Blood Count 13.6 TH/MM3 Red Blood Count 3.35 MIL/MM3 Hemoglobin 9.6 GM/DL Hematocrit 28.7 % Mean Corpuscular Volume 85.6 FL Mean Corpuscular Hemoglobin 28.7 PG Mean Corpuscular Hemoglobin Concent 33.6 % Red Cell Distribution Width 16.3 % Platelet Count 383 TH/MM3 Mean Platelet Volume 8.2 FL Neutrophils (%) (Auto) 83.1 % Lymphocytes (%) (Auto) 5.8 % Monocytes (%) (Auto) 10.6 % Eosinophils (%) (Auto) 0.3 % Basophils (%) (Auto) 0.2 % Neutrophils # (Auto) 11.3 TH/MM3 Lymphocytes # (Auto) 0.8 TH/MM3 Monocytes # (Auto) 1.4 TH/MM3 Eosinophils # (Auto) 0.0 TH/MM3 Basophils # (Auto) 0.0 TH/MM3 CBC Comment DIFF FINAL Differential Comment Prothrombin Time 11.2 SEC Prothromb Time International Ratio 1.0 RATIO Activated Partial Thromboplast Time 33.4 SEC Blood Urea Nitrogen 44 MG/DL Creatinine 1.44 MG/DL Random Glucose 102 MG/DL Total Protein 7.0 GM/DL Albumin 3.0 GM/DL Calcium Level 9.1 MG/DL Alkaline Phosphatase 144 U/L Aspartate Amino Transf (AST/SGOT) 20 U/L Alanine Aminotransferase (ALT/SGPT) 14 U/L Total Bilirubin 0.6 MG/DL Sodium Level 142 MEQ/L Potassium Level 3.1 MEQ/L Chloride Level 108 MEQ/L Carbon Dioxide Level 24.2 MEQ/L Anion Gap 10 MEQ/L Estimat Glomerular Filtration Rate 46 ML/MIN Troponin I 1.44 NG/ML B-Type Natriuretic Peptide 541 PG/ML Urine Color YELLOW Urine Turbidity CLEAR Urine pH 6.0 Urine Specific [place] 1.014 Urine Protein 30 mg/dL Urine Glucose (UA) NEG mg/dL Urine Ketones 10 mg/dL Urine Occult Blood TRACE Urine Nitrite NEG Urine Bilirubin NEG Urine Urobilinogen LESS THAN 2.0 MG/DL Urine Leukocyte Esterase NEG Urine RBC 4 /hpf Urine WBC 3 /hpf Urine Squamous Epithelial Cells <1 /hpf Urine Mucus FEW /lpf Microscopic Urinalysis Comment CULT NOT INDICATED MDM Medical Decision Making Medical Screen Exam Complete: Yes Emergency Medical Condition: Yes Medical Record Reviewed: Yes Interpretation(s) AFIB WITH MILD RVR, NO STEMI PATTERN, LVH Differential Diagnosis FALL WITH LEFT SIDED INJURY V ICH V SYNCOPE Narrative Course PATIENT WAS FOUND TO LIKELY HAVE HAD A SYNCOPAL EPISODE, SINCE NOT WITNESSED. PATIENT DOES HAVE H/O DEMENTIA THUS DIFFICULT TO TRULY ASSESS PATIENT'S TRUE SYMPTOMS BUT DESPITE RENAL DISEASE IT IS UNLIKELY THAT IT IS ONLY CAUSE OF ELEV OF TROPONIN Diagnosis Primary Impression: Syncope Qualified Codes: R55 - Syncope and collapse Additional Impression: Non-STEMI (non-ST elevated myocardial infarction) Admitting Information Admitting Physician Requests: Admit Kwabena Medina MD Mar 23, 2017 00:21
--- NOTE | 2017-03-23 00:37 | RADRPT ---
EXAM DATE/TIME: 03/23/2017 00:02 [facility] COMPARISON: CT BRAIN W/O CONTRAST, February 07, 2017, 16:26. INDICATIONS : Dizziness. RADIATION DOSE: 69.15 CTDIvol (mGy) MEDICAL HISTORY : Cerebrovascular disease. Hypertension. Chronic obstructive pulmonary disease. SURGICAL HISTORY : Cholecystectomy. ENCOUNTER: Initial ACUITY: 1 day PAIN SCALE: 0/10 LOCATION: cranial TECHNIQUE: Multiple contiguous axial images were obtained of the head. Using automated exposure control and adj ustment of the mA and/or kV according to patient size, radiation dose was kept as low as reasonably a chievable to obtain optimal diagnostic quality images. DICOM format image data is available electro nically for review and comparison. FINDINGS: CEREBRUM: Remote lacunar infarct left brennan radiata. Chronic white matter ischemic changes. Atrophy. POSTERIOR FOSSA: The cerebellum and brainstem are intact. The 4th ventricle is midline. The cerebellopontine angle i s unremarkable. EXTRACRANIAL: The visualized portion of the orbits is intact. SKULL: The calvaria is intact. No evidence of skull fracture. CONCLUSION: 1. 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 Chronic white matter ischemic changes. No acute findings. No significant change from February 07. Roberto Flores MD on March 23, 2017 at 0:32 Board Certified Radiologist. This report was verified electronically.
[2017-03-23 00:55] LABS: AUTOMATED NEUTROPHIL # 11.3 TH/MM3 (1.8-7.7); BASOPHIL % 0.2 % (0.0-2.0); EOSINOPHIL % 0.3 % (0.0-4.0); HEMATOCRIT 28.7 % (39.0-51.0); HEMO FLAGS DIFF FINAL; LYMPH % 5.8 % (9.0-44.0); LYMPHOCYTE # 0.8 TH/MM3 (1.0-4.8); MEAN CELL VOLUME 85.6 FL (80.0-100.0); MEAN CORPUSCULAR HEMOGLOBIN 28.7 PG (27.0-34.0); MEAN CORPUSCULAR HGB CONC 33.6 % (32.0-36.0); MONO % 10.6 % (0.0-8.0); NEUT % 83.1 % (16.0-70.0); PLATELET COUNT 383 TH/MM3 (150-450); RED BLOOD COUNT 3.35 MIL/MM3 (4.50-5.90); RED CELL DISTRIBUTION WIDTH 16.3 % (11.6-17.2); WHITE BLOOD COUNT 13.6 TH/MM3 (4.0-11.0)
[2017-03-23 00:57] LABS: ALT (GPT) 14 U/L (12-78); ANION GAP 10 MEQ/L (5-15); AST (GOT) 20 U/L (15-37); BICARBONATE 24.2 MEQ/L (21.0-32.0); BLOOD UREA NITROGEN 44 MG/DL (7-18); CHLORIDE 108 MEQ/L (98-107); GLOMERULAR FILTRATION RATE 46 ML/MIN (>89); POTASSIUM 3.1 MEQ/L (3.5-5.1); SODIUM (NA) 142 MEQ/L (136-145)
[2017-03-23 01:01] LABS: ALKALINE PHOSPHATASE 144 U/L (45-117); TOTAL BILIRUBIN ADULT 0.6 MG/DL (0.2-1.0)
[2017-03-23 01:08] LABS: APTT (PATIENT) 33.4 SEC (24.3-30.1); PROTHROMBIN TIME - PATIENT 11.2 SEC (9.8-11.6)
--- NOTE | 2017-03-23 01:36 | RADRPT ---
EXAM DATE/TIME: 03/23/2017 00:45 [facility] COMPARISON: No previous studies available for comparison. INDICATIONS : Pelvic pain post fall. MEDICAL HISTORY : Cerebrovascular disease. Hypertension. Chronic obstructive pulmonary. SURGICAL HISTORY : None. ENCOUNTER: Initial ACUITY: 1 day PAIN SCORE: Non-responsive. LOCATION: Bilateral pelvis FINDINGS: A single frontal view of the pelvis demonstrates no evidence of fracture. The bony pelvic ring is in tact. Bony mineralization is normal. The soft tissues are intact. CONCLUSION: 1. No acute fracture identified. Mild to moderate degenerative change of the hips and sacroiliac join ts. Roberto Flores MD on March 23, 2017 at 1:33 Board Certified Radiologist. This report was verified electronically.
[2017-03-23 01:37] LABS: BLOOD, URINE TRACE (NEG); COMMENT (UR) CULT NOT INDICATED; CULTURE IF INDICATED CULT NOT INDICATED; GLUCOSE,URINE NEG (NEG); KETONE, URINE 10 mg/dL (NEG); MUCUS URINE FEW /lpf (OCC); NITRITE,URINE NEG (NEG); SQUAMOUS EPITHELIAL CELL URINE <1 /hpf (0-5); URINE COLOR YELLOW (YELLW/STRAW)
--- NOTE | 2017-03-23 01:37 | RADRPT ---
EXAM DATE/TIME: 03/23/2017 00:47 [facility] COMPARISON: No previous studies available for comparison. INDICATIONS : Left femur pain post fall. MEDICAL HISTORY : Cerebrovascular disease. Hypertension. Chronic obstructive pulmonary. SURGICAL HISTORY : None. ENCOUNTER: Initial ACUITY: 1 day PAIN SCORE: Non-responsive. LOCATION: Left femur. FINDINGS: Two view examination of the left femur demonstrates no evidence of fracture or dislocation. Bony min eralization is normal. The soft tissue structures are intact. CONCLUSION: 1. No acute findings. Vascular calcifications noted. 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 Roberto Flores MD on March 23, 2017 at 1:34 Board Certified Radiologist. This report was verified electronically.
--- NOTE | 2017-03-23 01:38 | RADRPT ---
EXAM DATE/TIME: 03/23/2017 00:51 [facility] COMPARISON: No previous studies available for comparison. INDICATIONS : Lower leg pain post fall. MEDICAL HISTORY : Cerebrovascular disease. Hypertension. Chronic obstructive pulmonary. SURGICAL HISTORY : None. ENCOUNTER: Initial ACUITY: 1 day PAIN SCORE: Non-responsive. LOCATION: Left lower leg. FINDINGS: Two view examination of the left tibia demonstrates no evidence of fracture or dislocation. Bony min eralization is normal. The soft tissue structures are intact. CONCLUSION: 1. One no acute findings. Roberto Flores MD on March 23, 2017 at 1:36 Board Certified Radiologist. This report was verified electronically.
--- NOTE | 2017-03-23 01:39 | RADRPT ---
EXAM DATE/TIME: 03/23/2017 00:52 [facility] COMPARISON: No previous studies available for comparison. INDICATIONS : Left ankle pain post fall. MEDICAL HISTORY : Cerebrovascular disease. Hypertension. Chronic obstructive pulmonary. SURGICAL HISTORY : None. ENCOUNTER: Initial ACUITY: 1 day PAIN SCORE: Non-responsive. LOCATION: Left ankle. FINDINGS: Three view exam was performed of the left ankle. The bony structures are in normal alignment. No ev idence of fracture, dislocation, or soft tissue swelling. The ankle mortise is intact. No radiopaqu e foreign bodies are seen. Bony mineralization is normal. CONCLUSION: 1. No acute findings. Roberto Flores MD on March 23, 2017 at 1:37 Board Certified Radiologist. This report was verified electronically.
--- NOTE | 2017-03-23 01:40 | RADRPT ---
EXAM DATE/TIME: 03/23/2017 00:59 [place] COMPARISON: No previous studies available for comparison. INDICATIONS : Chest pain post fall. MEDICAL HISTORY : Cerebrovascular disease. Hypertension. Chronic obstructive pulmonary. SURGICAL HISTORY : None. ENCOUNTER: Initial ACUITY: 1 day PAIN SCORE: Non-responsive. LOCATION: Bilateral chest FINDINGS: A single view of the chest demonstrates subsegmental basilar airspace disease. No effusion. No pneumo thorax. Tortuous aorta. Mild scoliosis. CONCLUSION: 1. Subsegmental basilar opacity most characteristic of atelectasis. No effusion or pneumothorax. Roberto Flores MD on March 23, 2017 at 1:38 Board Certified Radiologist. This report was verified electronically.
[2017-03-23] MEDS ORDERED: SODIUM CHLORID 0.9% 500 ML INJ 500 ML IV ONE (02:15)
[2017-03-23] MEDS ORDERED: ENOXAPARIN SODIUM 60 MG/0.6 ML SYRINGE SQ ONE (02:15)
[2017-03-23] MEDS ORDERED: ASPIRIN 81 MG CHEW TAB CHEW ONE (02:15)
[2017-03-23] MEDS ORDERED: SODIUM CHLORIDE 0.9% FLUSH 10 ML FLUSH IV FLUSH PRN (02:30)
[2017-03-23] MEDS ORDERED: DOCUSATE SODIUM 100 MG CAP PO PRN (02:30)
[2017-03-23] MEDS ORDERED: NITROGLYCERIN 0.4 MG SL 25 TABS/BTL SL PRN (02:30)
[2017-03-23] MEDS ORDERED: traMADol HCL 50 MG TAB PO PRN (02:30)
[2017-03-23] MEDS ORDERED: ACETAMINOPHEN 500 MG CPLT PO PRN (02:30)
[2017-03-23] MEDS ORDERED: PILL SPLITTER OTHER PRN (02:45)
[2017-03-23] MEDS: RESP: ALBUTEROL 2.5 MG/IPRATROPIUM 0.5 MG NEB (PRN) NEB (03:19)
[2017-03-23] MEDS ORDERED: CLOPIDOGREL 75 MG TAB PO SCH (09:00)
[2017-03-23] MEDS: buPROPion HCL 100 MG TAB PO SCH ×2 (09:00→21:00)
[2017-03-23] MEDS ORDERED: amLODIPine BESYLATE 5 MG TAB PO SCH (09:00)
[2017-03-23] MEDS: SODIUM CHLORIDE 0.9% FLUSH 10 ML FLUSH IV FLUSH SCH ×2 (09:18→21:00)
[2017-03-23] MEDS: CHOLECALCIFEROL (VIT D3) 1000 UNIT TAB PO SCH (09:18)
[2017-03-23] MEDS: LEVOFLOXACIN 500 MG TAB PO SCH (09:18)
[2017-03-23] MEDS: LISINOPRIL 5 MG TAB PO SCH (09:18)
[2017-03-23] MEDS: ASPIRIN 81 MG CHEW TAB CHEW SCH (09:19)
[2017-03-23] MEDS: ESCITALOPRAM OXALATE 10 MG TAB PO SCH (09:19)
[2017-03-23] MEDS: PRAVASTATIN SOD 80 MG TAB PO SCH (09:19)
[2017-03-23] MEDS: QUEtiapine FUMARATE 200 MG TAB PO SCH (10:49)
--- NOTE | 2017-03-23 12:22 | HHI.HP ---
History of Present Illness Service Family Primary Care Physician No Primary Care Physician Admission Diagnosis SYNCOPE, NONSTEMI Diagnoses: (1) Syncope (2) NSTEMI (non-ST elevated myocardial infarction) (3) Status post fall History of Present Illness Patient is a very pleasant 86 year old male patient who currently resides at [facility] who was sent to ER s/p fall. Xrays did not show any acute findings. Labs work did so positive troponins at 1.44 and 1.54 today. Patient on exam denies any chest pain. Cardiology has been consulted. Patient past medical history of depression, HTN, HLD, COPD, arthritis, and CVA. Review of Systems Constitutional: COMPLAINS OF: Fatigue Respiratory: DENIES: Cough, Snoring, Wheezing, Sputum production, Shortness of breath Cardiovascular: COMPLAINS OF: Syncope, DENIES: Chest pain, Palpitations, Lower Extremity Edema Gastrointestinal: DENIES: Abdominal pain, Bloody stools, Constipation, Diarrhea Genitourinary: COMPLAINS OF: Urinary incontinence, DENIES: Urinary frequency, Urgency, Dysuria Musculoskeletal: COMPLAINS OF: Muscle aches Neurologic: COMPLAINS OF: Abnormal gait, Poor Balance Psychiatric: COMPLAINS OF: Depression Past Family Social History Allergies: Coded Allergies: No Known Allergies (Verified , 02/07/17) Past Medical History Arthritis, depression, HLD, COPD, CVA, [place], HTN: Past Surgical History cholecystectomy repair fo rectal fissure Active Ordered Medications Current Medications Medications (Trade) Dose Ordered Sig/Abhi Route Start Time Stop Time Status Last Admin (Norvasc) 10 mg DAILY PO 03/23/17 09:00 03/23/17 09:19 (Aspirin Chew) 81 mg DAILY CHEW 03/23/17 09:00 03/23/17 09:19 (Wellbutrin) 150 mg BID PO 03/23/17 09:00 03/23/17 09:00 (Vitamin D3) 1,000 units DAILY PO 03/23/17 09:00 03/23/17 09:18 (Plavix) 75 mg DAILY PO 03/23/17 09:00 03/23/17 09:19 (Colace) 100 mg BID PRN PO 03/23/17 02:30 (Cardura) 1 mg HS PO 03/23/17 21:00 (Duoneb Neb) 1 ampule Q6HR NEB PRN NEB 03/23/17 02:30 03/23/17 03:19 (Levaquin) 500 mg DAILY PO 03/23/17 09:00 03/23/17 09:18 (Prinivil) 5 mg DAILY PO 03/23/17 09:00 03/23/17 09:18 (Pravachol) 80 mg DAILY PO 03/23/17 09:00 03/23/17 09:19 (SEROquel) 200 mg DAILY PO 03/23/17 09:00 03/23/17 10:49 (Ultram) 50 mg Q4H PRN PO 03/23/17 02:30 (Lexapro) 10 mg DAILY PO 03/23/17 09:00 03/23/17 09:19 (NS Flush) 2 ml BID IV FLUSH 03/23/17 09:00 03/23/17 09:18 (NS Flush) 2 ml UNSCH PRN IV FLUSH 03/23/17 02:30 (Nitrostat Sl) 0.4 mg Q5M PRN SL 03/23/17 02:30 (Tylenol) 500 mg Q4H PRN PO 03/23/17 02:30 (Pill Splitter) 1 ea UNSCH PRN OTHER 03/23/17 02:45 Family History Social History ALCOHOLIC QUIT DRINKING YEARS AGO 1 PPD quit at 68 Physical Exam Vital Signs Vital Signs Date Time Temp Pulse Resp B/P (MAP) Pulse Ox O2 Delivery O2 Flow Rate FiO2 03/23/17 11:00 90 03/23/17 11:00 98.2 93 20 135/78 (97) 100 03/23/17 10:00 113 03/23/17 09:00 110 03/23/17 08:00 96 03/23/17 07:00 127 03/23/17 07:00 98.7 108 20 123/71 (88) 94 03/23/17 06:28 98.6 118 20 145/80 (101) 94 03/23/17 02:35 96 Nasal Cannula 3.00 03/23/17 02:24 90 16 114/77 (89) 98 03/23/17 00:16 98 Room Air 03/22/17 23:58 98.6 125 18 127/69 (88) 98 03/22/17 23:57 98.6 125 16 127/69 (88) 98 Physical Exam General: Patient is thin male in no acute distress SKIN: Warm and dry. HEAD: Atraumatic. Normocephalic. EYES: Pupils equal and round. No scleral icterus. No injection or drainage. ENT: No nasal bleeding or discharge. Mucous membranes pink and moist. NECK: Trachea midline. No JVD. CARDIOVASCULAR: Regular rate and rhythm. RESPIRATORY: No accessory muscle use. Clear to auscultation. Breath sounds equal bilaterally. GASTROINTESTINAL: Abdomen soft, non-tender, nondistended. Hepatic and splenic margins not palpable. MUSCULOSKELETAL: Extremities without clubbing, cyanosis, or edema. No obvious deformities. NEUROLOGICAL:AWAKE, CONFUSED. No obvious cranial nerve deficits. Motor grossly within normal limits. Five out of 5 muscle strength in the arms and legs. Normal speech. PSYCHIATRIC: Appropriate mood and affect; insight and judgment normal. Laboratory Laboratory Tests Test 03/23/17 00:25 03/23/17 01:22 03/23/17 03:00 03/23/17 10:22 White Blood Count 13.6 Red Blood Count 3.35 Hemoglobin 9.6 Hematocrit 28.7 Mean Corpuscular Volume 85.6 Mean Corpuscular Hemoglobin 28.7 Mean Corpuscular Hemoglobin Concent 33.6 Red Cell Distribution Width 16.3 Platelet Count 383 Mean Platelet Volume 8.2 Neutrophils (%) (Auto) 83.1 Lymphocytes (%) (Auto) 5.8 Monocytes (%) (Auto) 10.6 Eosinophils (%) (Auto) 0.3 Basophils (%) (Auto) 0.2 Neutrophils # (Auto) 11.3 Lymphocytes # (Auto) 0.8 Monocytes # (Auto) 1.4 Eosinophils # (Auto) 0.0 Basophils # (Auto) 0.0 CBC Comment DIFF FINAL Differential Comment Prothrombin Time 11.2 Prothromb Time International Ratio 1.0 Activated Partial Thromboplast Time 33.4 Blood Urea Nitrogen 44 Creatinine 1.44 Random Glucose 102 Total Protein 7.0 Albumin 3.0 Calcium Level 9.1 Alkaline Phosphatase 144 Aspartate Amino Transf (AST/SGOT) 20 Alanine Aminotransferase (ALT/SGPT) 14 Total Bilirubin 0.6 Sodium Level 142 Potassium Level 3.1 Chloride Level 108 Carbon Dioxide Level 24.2 Anion Gap 10 Estimat Glomerular Filtration Rate 46 Troponin I 1.44 1.53 B-Type Natriuretic Peptide 541 Urine Color YELLOW Urine Turbidity CLEAR Urine pH 6.0 Urine Specific [place] 1.014 Urine Protein 30 Urine Glucose (UA) NEG Urine Ketones 10 Urine Occult Blood TRACE Urine Nitrite NEG Urine Bilirubin NEG Urine Urobilinogen LESS THAN 2.0 Urine Leukocyte Esterase NEG Urine RBC 4 Urine WBC 3 Urine Squamous Epithelial Cells <1 Urine Mucus FEW Microscopic Urinalysis Comment CULT NOT INDICATED Total Creatine Kinase 77 Result Diagram: 03/23/17 0025 03/23/17 0025 Imaging Last [address] 03/22/172341 Signed Impressions: Service Date/Time: February 00:02 - CONCLUSION: 1. 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 Chronic white matter ischemic changes. No acute findings. No significant change from February 07. Roberto Flores MD Chest X-Ray 03/22/172341 Signed Impressions: Service Date/Time: February 00:59 - CONCLUSION: 1. Subsegmental basilar opacity most characteristic of atelectasis. No effusion or pneumothorax. Roberto Flores MD Tibia/Fibula X-Ray 03/22/17 0000 Signed Impressions: Service Date/Time: February 00:51 - CONCLUSION: 1. One no acute findings. Roberto Flores MD Pelvis X-Ray 03/22/17 0000 Signed Impressions: Service Date/Time: February 00:45 - CONCLUSION: 1. No acute fracture identified. Mild to moderate degenerative change of the hips and sacroiliac joints. Roberto Flores MD Femur X-Ray 03/22/17 0000 Signed Impressions: Service Date/Time: February 00:47 - CONCLUSION: 1. No acute findings. Vascular calcifications noted. 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 Roberto Flores MD Ankle X-Ray 03/22/17 0000 Signed Impressions: Service Date/Time: February 00:52 - CONCLUSION: 1. No acute findings. MD Guicho Reilly VTE Risk Assessment Guicho VTE Risk Assessment: Mod/High Risk (score >= 2) Caprini Risk Assessment Model Point Value = 1 Point Value = 2 Point Value = 3 Point Value = 5 Age 41-60 Minor surgery BMI > 25 kg/m2 Swollen legs Varicose veins or History of unexplained or recurrent spontaneous Oral contraceptives or hormone replacement Sepsis (< 1 month) Serious lung disease, including pneumonia (< 1 month) Abnormal pulmonary function Acute myocardial infarction Congestive heart failure (< 1 month) History of inflammatory bowel disease Medical patient at bed rest Age 61-74 Arthroscopic surgery Major open surgery (> 45 min) Laparoscopic surgery (> 45 min) Malignancy Confined to bed (> 72 hours) Immobilizing plaster cast Central venous access Age >= 75 History of VTE Family history of VTE Factor V Leiden Prothrombin 20304P Lupus anticoagulant Anticardiolipin antibodies Elevated serum homocysteine Heparin-induced thrombocytopenia Other congenital or acquired thrombophilia Stroke (< 1 month) Elective arthroplasty Hip, pelvis, or leg fracture Acute spinal cord injury (< 1 month) Prophylaxis Regimen Total Risk Factor Score Risk Level Prophylaxis Regimen 0-1 Low Early ambulation 2 Moderate Order ONE of the following: *Sequential Compression Device (SCD) *Heparin 5000 units SQ BID 3-4 Higher Order ONE of the following medications: *Heparin 5000 units SQ TID *Enoxaparin/Lovenox 40 mg SQ daily (WT < 150 kg, CrCl > 30 mL/min) *Enoxaparin/Lovenox 30 mg SQ daily (WT < 150 kg, CrCl > 10-29 mL/min) *Enoxaparin/Lovenox 30 mg SQ BID (WT < 150 kg, CrCl > 30 mL/min) AND/OR *Sequential Compression Device (SCD) 5 or more Highest Order ONE of the following medications: *Heparin 5000 units SQ TID (Preferred with Epidurals) *Enoxaparin/Lovenox 40 mg SQ daily (WT < 150 kg, CrCl > 30 mL/min) *Enoxaparin/Lovenox 30 mg SQ daily (WT < 150 kg, CrCl > 10-29 mL/min) *Enoxaparin/Lovenox 30 mg SQ BID (WT < 150 kg, CrCl > 30 mL/min) AND *Sequential Compression Device (SCD) Assessment and Plan Problem List: (1) Depression ICD Codes: F32.9 - Major depressive disorder, single episode, unspecified (2) HLD (hyperlipidemia) ICD Codes: E78.5 - Hyperlipidemia, unspecified (3) NSTEMI (non-ST elevated myocardial infarction) ICD Codes: I21.4 - Non-ST elevation (NSTEMI) myocardial infarction (4) HTN (hypertension) ICD Codes: I10 - Essential (primary) hypertension Status: Chronic (5) COPD with exacerbation ICD Codes: J44.1 - Chronic obstructive pulmonary disease with (acute) exacerbation Status: Acute Assessment and Plan 03/23/17 NSTEMI: Cardiology consulted. Patient denies and chest discomfort on exam. Troponin 1.43 to 1.53 this AM. On Plavix HTN: Continue amlodipine and lisinopril will monitor Depression: In good spirits. On Wellbutrin and Lexapro HLD: Continue statin COPD: DuoNeb as needed. On Levaquin orally. Hypokalemia: K 3.1 recheck ordered. Labs in AM I and the WAREHOUSE RECEIVING SUPERVISOR have both examined this patient and reviewed this note and i agree with these findings and plan of care. Maria Del Rosario Sandoval. [facility] Mar 23, 2017 12:22
[2017-03-23] MEDS ORDERED: POTASSIUM CHLORIDE 20 MEQ CONTROLLED RELEASE TAB PO ONE ×2 (14:00→16:00)
[2017-03-23] MEDS ORDERED: ENOXAPARIN SODIUM 30 MG/0.3 ML SYRINGE SQ SCH (15:00)
--- NOTE | 2017-03-23 17:05 | EKG ---
Date Performed: 03/23/2017 Time Performed: 07:31:34 PTAGE: 86 years EKG: Sinus rhythm with PAC(s). Inferior infarct - age undetermined Anterolateral ST-T changes are nonspecific Since PREVIOUS TRACING , no longer tachycardic DOCTOR: Mary Caldera Interpretating Date/Time 03/27/2017 07:44:02
--- NOTE | 2017-03-23 17:10 | EKG ---
Date Performed: 03/23/2017 Time Performed: 03:50:03 PTAGE: 86 years EKG: ATRIAL FIBRILLATION WITH RAPID VENTRICULAR RESPONSE NONSPECIFIC ST & T-WAVE ABNORMALITY ABN ORMAL RHYTHM ECG Since PREVIOUS TRACING , no significant change noted PREVIOUS TRACIN03/22/2017 23.33 DOCTOR: Mary Caldera Interpretating Date/Time 03/23/2017 17:08:42
--- NOTE | 2017-03-23 17:14 | EKG ---
Date Performed: 03/22/2017 Time Performed: 23:33:28 PTAGE: 86 years EKG: ATRIAL FIBRILLATION WITH RAPID VENTRICULAR RESPONSE PROBABLE INFERIOR MYOCARDIAL INFARCTION ST DEPRESSION, CONSIDER SUBENDOCARDIAL INJURY ABNORMAL ECG Since PREVIOUS TRACING , now RVR PREVIOUS TRACIN02/08/2017 03.52 DOCTOR: Mary Caldera Interpretating Date/Time 03/23/2017 17:14:07
[2017-03-23] MEDS ORDERED: DOXAZOSIN MESYLATE 1 MG TAB PO SCH (21:00)
[2017-03-23] MEDS ORDERED: TICAGRELOR 90 MG TAB PO ONE (21:15)
[2017-03-23] MEDS: FAMOTIDINE 20 MG TAB PO SCH (22:18)
[2017-03-23] MEDS: CARVEDILOL 6.25 MG TAB PO SCH (22:22)
--- NOTE | 2017-03-23 22:53 | MB ---
cc: JERZY LÓPEZ DATE OF CONSULTATION 03/23/17 Mr. Dunbar is an 86-year-old white male with a history of COPD, CVA and hypertension. He was sent from [facility] after he fell. He was found to have abnormal troponin at 1.44 and 1.54. He has not had any chest pain or significant dyspnea. PAST MEDICAL HISTORY 1. Hypertension, 2. Dyslipidemia, 3. COPD, 4. CVA 5. Arthritis 6. Depression. 7. [id number] 8. History of cholecystectomy, 9. Rectal fissure repair MEDICATIONS 1. Norvasc. 2. Aspirin 3. Wellbutrin 4. Vitamin D3 5. Plavix 6. Colace 7. Cardura 8. Duoneb 9. Levaquin 10. Prinivil 11. Pravachol 12. Seroquel 13. Ultram 14. Lexapro. 15. P.r.n. nitroglycerin. ALLERGIES None. SOCIAL HISTORY The patient does not smoke. He quit smoking 50 years ago. He does not drink alcohol. He also quit drinking many years ago. FAMILY HISTORY Negative for heart disease. REVIEW OF SYSTEMS Otherwise negative. PHYSICAL EXAMINATION VITAL SIGNS: Blood pressure 113/71, pulse 98 and regular. HEENT: Negative. 2+ carotid upstrokes. No bruits. LUNGS: Clear. HEART: Regular with no murmur, gallop, rub. ABDOMEN: Soft. No bruits. EXTREMITIES: Without edema, 1-2+ distal pulses NEUROLOGIC: Grossly nonfocal The patient is hard of hearing and is rather cachectic. CARDIOLOGY STUDIES EKG was reviewed and showed normal sinus rhythm, PACs, small inferior Q-waves and nonspecific ST-T changes. LABORATORY DATA Hemoglobin 9.6, potassium 3.1 and 2.9, creatinine 1.44, troponin 1.44, 1.58 and 2.18. BNP 5__ DIAGNOSES 1. Recent fall 2. [id number] myocardial infarction 3. Hypertension 4. Dyslipidemia, 5. Chronic obstructive pulmonary disease 6. History of CVA. DISPOSITION Mr. Dunbar will be monitored on telemetry. He has not had any angina. He will be treated conservatively for a [id number] myocardial infarction with aspirin, beta mallika and statin. His platelets will be switched to Brilinta. He will continue therapy for hypertension. I will follow him for cardiology during hospitalization. MD EVA Pacheco /9:06 PM /10:41 PM
[2017-03-24] VITALS (18 sets, daily range): BP systolic 104–145; BP diastolic 60–84; PULSE 70–96; RESP 20–24; TEMP 97.4–98.2; O2SAT 93–98
[2017-03-24] MEDS: RESP: ALBUTEROL 2.5 MG/IPRATROPIUM 0.5 MG NEB (PRN) NEB ×2 (01:27→04:38)
[2017-03-24 07:46] LABS: AUTOMATED NEUTROPHIL # 14.4 TH/MM3 (1.8-7.7); BASOPHIL % 0.1 % (0.0-2.0); EOSINOPHIL % 0.1 % (0.0-4.0); HEMATOCRIT 28.5 % (39.0-51.0); HEMO FLAGS DIFF FINAL; LYMPH % 4.4 % (9.0-44.0); LYMPHOCYTE # 0.7 TH/MM3 (1.0-4.8); MEAN CELL VOLUME 87.5 FL (80.0-100.0); MEAN CORPUSCULAR HEMOGLOBIN 28.5 PG (27.0-34.0); MEAN CORPUSCULAR HGB CONC 32.6 % (32.0-36.0); MONO % 4.9 % (0.0-8.0); NEUT % 90.5 % (16.0-70.0); PLATELET COUNT 408 TH/MM3 (150-450); RED BLOOD COUNT 3.25 MIL/MM3 (4.50-5.90); RED CELL DISTRIBUTION WIDTH 16.5 % (11.6-17.2); WHITE BLOOD COUNT 15.9 TH/MM3 (4.0-11.0)
[2017-03-24 07:57] LABS: BICARBONATE 16.5 MEQ/L (21.0-32.0); MAGNESIUM 2.2 MG/DL (1.5-2.5); POTASSIUM 3.6 MEQ/L (3.5-5.1)
[2017-03-24 07:59] LABS: HDL CHOLESTEROL 13.5 MG/DL (40.0-60.0)
[2017-03-24] MEDS ORDERED: TICAGRELOR 90 MG TAB PO SCH (09:00)
[2017-03-24] MEDS: buPROPion HCL 100 MG TAB PO SCH (09:00)
[2017-03-24] MEDS ORDERED: POTASSIUM CHLORIDE 20 MEQ CONTROLLED RELEASE TAB PO SCH (09:00)
--- NOTE | 2017-03-24 09:19 | HHI.PR ---
Subjective Remarks Patient resting comfortably in bed. No complaints of CP or SOB Objective Vital Signs Date Time Temp Pulse Resp B/P (MAP) Pulse Ox O2 Delivery O2 Flow Rate FiO2 03/24/17 08:00 84 03/24/17 07:00 76 03/24/17 07:00 98.2 96 22 145/84 (104) 98 03/24/17 06:00 76 03/24/17 05:00 96 03/24/17 04:00 90 03/24/17 03:00 81 03/24/17 03:00 97.4 81 24 133/75 (94) 96 03/24/17 02:00 78 03/24/17 01:27 96 Nasal Cannula 2.00 03/24/17 01:00 76 03/24/17 00:00 74 03/23/17 23:47 75 03/23/17 23:00 97.8 77 30 129/77 (94) 96 03/23/17 22:00 88 03/23/17 21:00 90 03/23/17 20:00 88 03/23/17 19:00 84 03/23/17 19:00 98.0 87 28 147/66 (93) 98 03/23/17 18:00 98 03/23/17 17:00 89 03/23/17 16:00 85 03/23/17 15:00 88 03/23/17 15:00 98.4 84 18 113/71 (85) 98 03/23/17 14:00 92 03/23/17 13:00 92 03/23/17 12:00 100 03/23/17 11:00 90 03/23/17 11:00 98.2 93 20 135/78 (97) 100 03/23/17 10:00 113 I/O 03/23/17 03/23/17 03/23/17 03/24/17 03/24/17 03/24/17 07:00 15:00 23:00 07:00 15:00 23:00 Intake Total 600 ml 480 ml Output Total 100 ml Balance 600 ml 380 ml Intake Oral 600 ml 480 ml Output Urine Total 100 ml # Voids 2 3 # Bowel Movements 3 Result Diagram: 03/24/1771703/24/17717 Objective Remarks GENERAL: alert not oriented. Very [place] SKIN: Warm and dry. HEAD: Normocephalic. EYES: No scleral icterus. No injection or drainage. NECK: Supple, trachea midline. No JVD or lymphadenopathy. CARDIOVASCULAR: Regular rate and rhythm without murmurs, gallops, or rubs. RESPIRATORY: Breath sounds equal bilaterally. No accessory muscle use. GASTROINTESTINAL: Abdomen soft, non-tender, nondistended. MUSCULOSKELETAL: No cyanosis, or edema. BACK: Nontender without obvious deformity. No CVA tenderness. Medications and IVs Current Medications Medications (Trade) Dose Ordered Sig/Abhi Route Start Time Stop Time Status Last Admin (Aspirin Chew) 81 mg DAILY CHEW 03/23/17 09:00 03/23/17 09:19 (Wellbutrin) 150 mg BID PO 03/23/17 09:00 03/23/17 21:00 (Vitamin D3) 1,000 units DAILY PO 03/23/17 09:00 03/23/17 09:18 (Colace) 100 mg BID PRN PO 03/23/17 02:30 (Cardura) 1 mg HS PO 03/23/17 21:00 03/23/17 22:15 (Duoneb Neb) 1 ampule Q6HR NEB PRN NEB 03/23/17 02:30 03/24/17 04:38 (Levaquin) 500 mg DAILY PO 03/23/17 09:00 03/23/17 09:18 (Prinivil) 5 mg DAILY PO 03/23/17 09:00 03/23/17 09:18 (Pravachol) 80 mg DAILY PO 03/23/17 09:00 03/23/17 09:19 (SEROquel) 200 mg DAILY PO 03/23/17 09:00 03/23/17 10:49 (Ultram) 50 mg Q4H PRN PO 03/23/17 02:30 (Lexapro) 10 mg DAILY PO 03/23/17 09:00 03/23/17 09:19 (NS Flush) 2 ml BID IV FLUSH 03/23/17 09:00 03/23/17 21:00 (NS Flush) 2 ml UNSCH PRN IV FLUSH 03/23/17 02:30 (Nitrostat Sl) 0.4 mg Q5M PRN SL 03/23/17 02:30 (Tylenol) 500 mg Q4H PRN PO 03/23/17 02:30 (Pill Splitter) 1 ea UNSCH PRN OTHER 03/23/17 02:45 (Pepcid) 10 mg BID PO 03/23/17 21:00 03/23/17 22:18 (Lovenox Inj) 30 mg Q24H SQ 03/23/17 15:00 03/23/17 14:26 (KCl) 20 meq Q12HR PO 03/24/17 09:00 (Coreg) 6.25 mg Q12HR PO 03/23/17 21:15 03/23/17 22:22 (Brilinta) 90 mg BID PO 03/24/17 09:00 Assessment and Plan Problem List: (1) Depression ICD Codes: F32.9 - Major depressive disorder, single episode, unspecified (2) HLD (hyperlipidemia) ICD Codes: E78.5 - Hyperlipidemia, unspecified (3) NSTEMI (non-ST elevated myocardial infarction) ICD Codes: I21.4 - Non-ST elevation (NSTEMI) myocardial infarction (4) HTN (hypertension) ICD Codes: I10 - Essential (primary) hypertension Status: Chronic (5) COPD with exacerbation ICD Codes: J44.1 - Chronic obstructive pulmonary disease with (acute) exacerbation Status: Acute Assessment and Plan 03/23/17 NSTEMI: Cardiology consulted. Patient denies and chest discomfort on exam. Troponin 1.43 to 1.53 this AM. On Plavix HTN: Continue amlodipine and lisinopril will monitor Depression: In good spirits. On Wellbutrin and Lexapro HLD: Continue statin COPD: DuoNeb as needed. On Levaquin orally. Hypokalemia: K 3.1 recheck ordered. Labs in AM 03/24/17 NSTEMI: Cardiology consulted. Patient denies and chest discomfort on exam. Troponin 1.43 to 1.53 this AM. Plavix changed to brillinta. Conservative treatment only HTN: Continue amlodipine and lisinopril will monitor. B/P 145/84 Depression: In good spirits. On Wellbutrin and Lexapro HLD: Continue statin COPD: DuoNeb as needed. On Levaquin orally stop date the 3rd Hypokalemia: K 3.1 yesterday and then down to 2.9 at recheck. Replacement given and ordered daily. K today at 3.6 PT and OT ordered. On GI prophylaxis and SCDS. Labs in AM I and the FACULTY MEMBER have both examined this patient and reviewed this note and i agree with these findings and plan of care. Maria Del Rosario Sandoval. [facility] Mar 24, 2017 09:19
--- NOTE | 2017-03-24 09:20 | HHI.PR ---
Subjective Remarks Patient resting comfortably in bed. No complaints of CP or SOB Objective Vital Signs Date Time Temp Pulse Resp B/P (MAP) Pulse Ox O2 Delivery O2 Flow Rate FiO2 03/24/17 08:00 84 03/24/17 07:00 76 03/24/17 07:00 98.2 96 22 145/84 (104) 98 03/24/17 06:00 76 03/24/17 05:00 96 03/24/17 04:00 90 03/24/17 03:00 81 03/24/17 03:00 97.4 81 24 133/75 (94) 96 03/24/17 02:00 78 03/24/17 01:27 96 Nasal Cannula 2.00 03/24/17 01:00 76 03/24/17 00:00 74 03/23/17 23:47 75 03/23/17 23:00 97.8 77 30 129/77 (94) 96 03/23/17 22:00 88 03/23/17 21:00 90 03/23/17 20:00 88 03/23/17 19:00 84 03/23/17 19:00 98.0 87 28 147/66 (93) 98 03/23/17 18:00 98 03/23/17 17:00 89 03/23/17 16:00 85 03/23/17 15:00 88 03/23/17 15:00 98.4 84 18 113/71 (85) 98 03/23/17 14:00 92 03/23/17 13:00 92 03/23/17 12:00 100 03/23/17 11:00 90 03/23/17 11:00 98.2 93 20 135/78 (97) 100 03/23/17 10:00 113 I/O 03/23/17 03/23/17 03/23/17 03/24/17 03/24/17 03/24/17 07:00 15:00 23:00 07:00 15:00 23:00 Intake Total 600 ml 480 ml Output Total 100 ml Balance 600 ml 380 ml Intake Oral 600 ml 480 ml Output Urine Total 100 ml # Voids 2 3 # Bowel Movements 3 Result Diagram: 03/24/1771703/24/17717 Objective Remarks GENERAL: alert not oriented. Very [place] SKIN: Warm and dry. HEAD: Normocephalic. EYES: No scleral icterus. No injection or drainage. NECK: Supple, trachea midline. No JVD or lymphadenopathy. CARDIOVASCULAR: Regular rate and rhythm without murmurs, gallops, or rubs. RESPIRATORY: Breath sounds equal bilaterally. No accessory muscle use. GASTROINTESTINAL: Abdomen soft, non-tender, nondistended. MUSCULOSKELETAL: No cyanosis, or edema. BACK: Nontender without obvious deformity. No CVA tenderness. Assessment and Plan Problem List: (1) Depression ICD Codes: F32.9 - Major depressive disorder, single episode, unspecified (2) HLD (hyperlipidemia) ICD Codes: E78.5 - Hyperlipidemia, unspecified (3) NSTEMI (non-ST elevated myocardial infarction) ICD Codes: I21.4 - Non-ST elevation (NSTEMI) myocardial infarction (4) HTN (hypertension) ICD Codes: I10 - Essential (primary) hypertension Status: Chronic (5) COPD with exacerbation ICD Codes: J44.1 - Chronic obstructive pulmonary disease with (acute) exacerbation Status: Acute Assessment and Plan 03/23/17 NSTEMI: Cardiology consulted. Patient denies and chest discomfort on exam. Troponin 1.43 to 1.53 this AM. On Plavix HTN: Continue amlodipine and lisinopril will monitor Depression: In good spirits. On Wellbutrin and Lexapro HLD: Continue statin COPD: DuoNeb as needed. On Levaquin orally. Hypokalemia: K 3.1 recheck ordered. Labs in AM 03/24/17 NSTEMI: Cardiology consulted. Patient denies and chest discomfort on exam. Troponin 1.43 to 1.53 this AM. Plavix changed to brillinta. Conservative treatment only HTN: Continue amlodipine and lisinopril will monitor. B/P 145/84 Depression: In good spirits. On Wellbutrin and Lexapro HLD: Continue statin COPD: DuoNeb as needed. On Levaquin orally stop date the 3rd Hypokalemia: K 3.1 yesterday and then down to 2.9 at recheck. Replacement given and ordered daily. K today at 3.6 Leukocytosis: WBC increased to 15.9 today will check UA PT and OT ordered. On GI prophylaxis and SCDS. Labs in AM I and the GRINDING WHEEL FACER have both examined this patient and reviewed this note and i agree with these findings and plan of care. Maria Del Rosario Sandoval. [facility] Mar 24, 2017 09:20
[2017-03-24] MEDS: QUEtiapine FUMARATE 200 MG TAB PO SCH (09:23)
[2017-03-24] MEDS: PRAVASTATIN SOD 80 MG TAB PO SCH (09:23)
[2017-03-24] MEDS: ASPIRIN 81 MG CHEW TAB CHEW SCH (09:23)
[2017-03-24] MEDS: CARVEDILOL 6.25 MG TAB PO SCH (09:23)
[2017-03-24] MEDS: LEVOFLOXACIN 500 MG TAB PO SCH (09:24)
[2017-03-24] MEDS: ESCITALOPRAM OXALATE 10 MG TAB PO SCH (09:24)
[2017-03-24] MEDS: CHOLECALCIFEROL (VIT D3) 1000 UNIT TAB PO SCH (09:24)
[2017-03-24] MEDS: SODIUM CHLORIDE 0.9% FLUSH 10 ML FLUSH IV FLUSH SCH (09:25)
[2017-03-24] MEDS: LISINOPRIL 5 MG TAB PO SCH (09:25)
[2017-03-24] MEDS: FAMOTIDINE 20 MG TAB PO SCH (09:25)
[2017-03-24 11:27] LABS: BACTERIA, URINE FEW /hpf; BLOOD, URINE TRACE (NEG); COMMENT (UR) CATH-CULTURE IND; CULTURE IF INDICATED CATH CULTURE IND; GLUCOSE,URINE NEG (NEG); KETONE, URINE 10 mg/dL (NEG); MUCUS URINE FEW /lpf (OCC); NITRITE,URINE NEG (NEG); PH, URINE 5.5 (5.0-8.5); SQUAMOUS EPITHELIAL CELL URINE <1 /hpf (0-5); URINE COLOR YELLOW (YELLW/STRAW)
[2017-03-24] MEDS ORDERED: POTA20TA5 PO (12:40)
[2017-03-24] MEDS ORDERED: CARV6.25 PO (12:40)
[2017-03-24] MEDS ORDERED: BRIL90TA PO (12:40)
--- NOTE | 2017-03-24 12:46 | HHI.DS ---
Discharge Summary Admission Date Mar 23, 2017 at 11:59 Discharge Date: Mar 24, 2017 Admitting Diagnosis SYNCOPE, NONSTEMI (1) NSTEMI (non-ST elevated myocardial infarction) ICD Codes: I21.4 - Non-ST elevation (NSTEMI) myocardial infarction (2) HLD (hyperlipidemia) ICD Codes: E78.5 - Hyperlipidemia, unspecified Brief History Patient is a very pleasant 86 year old male patient who currently resides at [facility] who was sent to ER s/p fall. Xrays did not show any acute findings. Labs work did so positive troponins at 1.44 and 1.54 today. Patient on exam denies any chest pain. Cardiology has been consulted. Patient past medical history of depression, HTN, HLD, COPD, arthritis, and CVA. CBC/BMP: 03/24/17 0718 03/24/17 0718 Significant Findings Laboratory Tests Test 03/23/17 00:25 03/23/17 01:22 03/23/17 03:00 03/23/17 10:22 White Blood Count 13.6 TH/MM3 (4.0-11.0) Red Blood Count 3.35 MIL/MM3 (4.50-5.90) Hemoglobin 9.6 GM/DL (13.0-17.0) Hematocrit 28.7 % (39.0-51.0) Neutrophils (%) (Auto) 83.1 % (16.0-70.0) Lymphocytes (%) (Auto) 5.8 % (9.0-44.0) Monocytes (%) (Auto) 10.6 % (0.0-8.0) Neutrophils # (Auto) 11.3 TH/MM3 (1.8-7.7) Lymphocytes # (Auto) 0.8 TH/MM3 (1.0-4.8) Monocytes # (Auto) 1.4 TH/MM3 (0-0.9) Activated Partial Thromboplast Time 33.4 SEC (24.3-30.1) Blood Urea Nitrogen 44 MG/DL (7-18) Creatinine 1.44 MG/DL (0.60-1.30) Albumin 3.0 GM/DL (3.4-5.0) Alkaline Phosphatase 144 U/L (45-117) Potassium Level 3.1 MEQ/L (3.5-5.1) 2.9 MEQ/L (3.5-5.1) Chloride Level 108 MEQ/L (98-107) Estimat Glomerular Filtration Rate 46 ML/MIN (>89) Troponin I 1.44 NG/ML (0.02-0.05) 1.53 NG/ML (0.02-0.05) 2.18 NG/ML (0.02-0.05) B-Type Natriuretic Peptide 541 PG/ML (0-100) Urine Protein 30 mg/dL (NEG-TRACE) Urine Ketones 10 mg/dL (NEG) Urine Occult Blood TRACE (NEG) Urine RBC 4 /hpf (0-3) Urine Mucus FEW /lpf (OCC) Test 03/24/17 07:18 03/24/17 10:25 White Blood Count 15.9 TH/MM3 (4.0-11.0) Red Blood Count 3.25 MIL/MM3 (4.50-5.90) Hemoglobin 9.3 GM/DL (13.0-17.0) Hematocrit 28.5 % (39.0-51.0) Neutrophils (%) (Auto) 90.5 % (16.0-70.0) Lymphocytes (%) (Auto) 4.4 % (9.0-44.0) Neutrophils # (Auto) 14.4 TH/MM3 (1.8-7.7) Lymphocytes # (Auto) 0.7 TH/MM3 (1.0-4.8) Blood Urea Nitrogen 39 MG/DL (7-18) Chloride Level 112 MEQ/L (98-107) Carbon Dioxide Level 16.5 MEQ/L (21.0-32.0) Estimat Glomerular Filtration Rate 59 ML/MIN (>89) Cholesterol Level 56 MG/DL (120-200) HDL Cholesterol 13.5 MG/DL (40.0-60.0) Urine Turbidity HAZY (CLEAR) Urine Protein 30 mg/dL (NEG-TRACE) Urine Ketones 10 mg/dL (NEG) Urine Occult Blood TRACE (NEG) Urine WBC 10 /hpf (0-5) Urine Bacteria FEW /hpf (NONE) Urine Mucus FEW /lpf (OCC) PE at Discharge GENERAL: alert not oriented. Very [place] SKIN: Warm and dry. HEAD: Normocephalic. EYES: No scleral icterus. No injection or drainage. NECK: Supple, trachea midline. No JVD or lymphadenopathy. CARDIOVASCULAR: Regular rate and rhythm without murmurs, gallops, or rubs. RESPIRATORY: Breath sounds equal bilaterally. No accessory muscle use. GASTROINTESTINAL: Abdomen soft, non-tender, nondistended. MUSCULOSKELETAL: No cyanosis, or edema. BACK: Nontender without obvious deformity. No CVA tenderness. Hospital Course Patient is a very pleasant 86 year old male patient who currently resides at [facility] who was sent to ER s/p fall. Xrays did not show any acute findings. Labs work did so positive troponins at 1.44 and 1.54 today. Patient on exam denies any chest pain. Cardiology has been consulted. Patient past medical history of depression, HTN, HLD, COPD, arthritis, and CVA. Patient was seen by Dr. Alas and will proceed with conservative management. Plavix has been changed to brillinta. He will also be discharged on ASA, betablocker and statin. He was noted to have slight elevation in WBC today at 15.9 and UA ordered. Will can still proceed with discharge and will follow up at SNF. He will continue to be followed by Dr. Guevara Discharge Disposition: Discharge to SNF Discharge Instructions DIET: Follow Instructions for: Heart Healthy Diet Activities you can perform: Regular-No Restrictions Follow up Referrals: PCP Follow-up with Ismael New Orders: BASIC METABOLIC PROF - 2 Days CBC NO DIFF - 2 Days New Medications: Carvedilol (Coreg) 6.25 Mg Tab 6.25 MG PO Q12HR for Blood Pressure Management for 30 Days, #30 TAB Potassium Chloride Microencaps (Potassium Chloride Microencaps) 20 Meq Tab 20 MEQ PO Q12HR for Electrolyte Replacement for 30 Days, TAB Ticagrelor (Brilinta) 90 Mg Tab 90 MG PO BID for Blood Clot Prevention for 30 Days, #60 TAB Continued Medications: Amlodipine (Norvasc) 5 Mg Tab 10 MG PO DAILY for 30 Days, TAB Aspirin (Aspirin) 81 Mg Chew 81 MG CHEW DAILY for antiplatelet for 30 Days, TAB 0 Refills Bupropion HCl (Bupropion HCl) 100 Mg Tab 150 MG PO BID for Control Depression, #20 TAB 0 Refills Cholecalciferol (Vitamin D3) 1,000 Unit Chew 1000 UNITS CHEW DAILY for Nutritional Supplement, #1 BOTTLE 0 Refills Docusate Sodium (Colace) 100 Mg Capsule 100 MG PO BID PRN for CONSTIPATION, #10 TAB 0 Refills Doxazosin (Cardura) 1 Mg Tab 1 MG PO HS for 30 Days, TAB Escitalopram Liq (Escitalopram Liq) 5 Mg/5 Ml Soln 10 MG PO DAILY for depression, #300 ML Ipratropium-Albuterol Neb (Duoneb) 0.5-2.5 Mg/3 Ml Neb 1 AMPULE NEB Q6HR NEB PRN for SHORTNESS OF BREATH for 7 Days, ML 0 Refills Levofloxacin (Levaquin) 500 Mg Tablet 500 MG PO DAILY for 7 Days, TAB Lisinopril (Lisinopril) 5 Mg Tab 5 MG PO DAILY for 30 Days, TAB Pravastatin (Pravastatin) 80 Mg Tab 80 MG PO DAILY for Cholesterol Management, #30 TAB 0 Refills Quetiapine (Seroquel) 200 Mg Tab 200 MG PO DAILY for anxiety, #30 TAB 0 Refills Discontinued Medications: Clopidogrel (Plavix) 75 Mg Tab 75 MG PO DAILY for Blood Clot Prevention, #30 TAB 0 Refills Tramadol (Tramadol) 50 Mg Tab 50 MG PO Q4H PRN for PAIN, #15 TAB 0 Refills Additional Information UA obtained prior to discharge will need to follow culture Maria Del Rosario Coles Mar 24, 2017 12:46
[2017-03-24 14:11] LABS: INTERNATIONAL NORMALIZED RATIO 1.1 RATIO; PROTHROMBIN TIME - PATIENT 11.9 SEC (9.8-11.6)
--- NOTE | 2017-03-24 15:44 | PD.CARD.PN ---
Subjective Subjective Remarks No CP or SOB, feels fine Objective Medications Administered Medications Medications (Trade) Dose Ordered Sig/Abhi Route PRN Reason Start Time Stop Time Status Last Admin Dose Admin Aspirin (Aspirin Chew) 81 mg DAILY CHEW 03/23/17 09:00 03/24/17 09:23 Bupropion HCl (Wellbutrin) 150 mg BID PO 03/23/17 09:00 03/24/17 09:00 Cholecalciferol (Vitamin D3) 1,000 units DAILY PO 03/23/17 09:00 03/24/17 09:24 Doxazosin Mesylate (Cardura) 1 mg HS PO 03/23/17 21:00 03/23/17 22:15 Albuterol/ Ipratropium (Duoneb Neb) 1 ampule Q6HR NEB PRN NEB SHORTNESS OF BREATH 03/23/17 02:30 03/24/17 04:38 Levofloxacin (Levaquin) 500 mg DAILY PO 03/23/17 09:00 03/28/17 09:00 03/24/17 09:24 Lisinopril (Prinivil) 5 mg DAILY PO 03/23/17 09:00 03/24/17 09:25 Pravastatin Sodium (Pravachol) 80 mg DAILY PO 03/23/17 09:00 03/24/17 09:23 Quetiapine Fumarate (SEROquel) 200 mg DAILY PO 03/23/17 09:00 03/24/17 09:23 Escitalopram Oxalate (Lexapro) 10 mg DAILY PO 03/23/17 09:00 03/24/17 09:24 Sodium Chloride (NS Flush) 2 ml BID IV FLUSH 03/23/17 09:00 03/24/17 09:25 Famotidine (Pepcid) 10 mg BID PO 03/23/17 21:00 03/24/17 09:25 Potassium Chloride (KCl) 20 meq Q12HR PO 03/24/17 09:00 03/24/17 09:25 Carvedilol (Coreg) 6.25 mg Q12HR PO 03/23/17 21:15 03/24/17 09:23 Ticagrelor (Brilinta) 90 mg BID PO 03/24/17 09:00 03/24/17 09:24 Vital Signs / I&O Vital Signs Date Time Temp Pulse Resp B/P (MAP) Pulse Ox O2 Delivery O2 Flow Rate FiO2 03/24/17 15:00 72 03/24/17 15:00 98.2 70 22 137/76 (96) 94 03/24/17 14:00 72 03/24/17 13:00 74 03/24/17 12:00 71 03/24/17 11:59 98 Nasal Cannula 3.00 03/24/17 11:00 72 03/24/17 11:00 98.2 92 20 104/60 (75) 93 03/24/17 10:00 82 03/24/17 09:00 86 03/24/17 08:00 84 03/24/17 07:00 76 03/24/17 07:00 98.2 96 22 145/84 (104) 98 03/24/17 06:00 76 03/24/17 05:00 96 03/24/17 04:00 90 03/24/17 03:00 81 03/24/17 03:00 97.4 81 24 133/75 (94) 96 03/24/17 02:00 78 03/24/17 01:27 96 Nasal Cannula 2.00 03/24/17 01:00 76 03/24/17 00:00 74 03/23/17 23:47 75 03/23/17 23:00 97.8 77 30 129/77 (94) 96 03/23/17 22:00 88 03/23/17 21:00 90 03/23/17 20:00 88 03/23/17 19:00 84 03/23/17 19:00 98.0 87 28 147/66 (93) 98 03/23/17 18:00 98 03/23/17 17:00 89 03/23/17 16:00 85 I/O 03/23/17 03/23/17 03/23/17 03/24/17 03/24/17 03/24/17 07:00 15:00 23:00 07:00 15:00 23:00 Intake Total 600 ml 480 ml Output Total 100 ml Balance 600 ml 380 ml Intake Oral 600 ml 480 ml Output Urine Total 100 ml # Voids 2 3 # Bowel Movements 3 Physical Exam GENERAL: In NAD, thin, [place] SKIN: Warm and dry. HEAD: Normocephalic. EYES: No scleral icterus. No injection or drainage. NECK: Supple, trachea midline. No JVD or lymphadenopathy. CARDIOVASCULAR: Regular rate and rhythm without murmurs, gallops, or rubs. RESPIRATORY: Breath sounds equal bilaterally. No accessory muscle use. GASTROINTESTINAL: Abdomen soft, non-tender, nondistended. MUSCULOSKELETAL: No cyanosis, or edema. Laboratory Laboratory Tests Test 03/24/17 07:18 03/24/17 10:25 03/24/17 13:47 White Blood Count 15.9 TH/MM3 Red Blood Count 3.25 MIL/MM3 Hemoglobin 9.3 GM/DL Hematocrit 28.5 % Mean Corpuscular Volume 87.5 FL Mean Corpuscular Hemoglobin 28.5 PG Mean Corpuscular Hemoglobin Concent 32.6 % Red Cell Distribution Width 16.5 % Platelet Count 408 TH/MM3 Mean Platelet Volume 7.9 FL Neutrophils (%) (Auto) 90.5 % Lymphocytes (%) (Auto) 4.4 % Monocytes (%) (Auto) 4.9 % Eosinophils (%) (Auto) 0.1 % Basophils (%) (Auto) 0.1 % Neutrophils # (Auto) 14.4 TH/MM3 Lymphocytes # (Auto) 0.7 TH/MM3 Monocytes # (Auto) 0.8 TH/MM3 Eosinophils # (Auto) 0.0 TH/MM3 Basophils # (Auto) 0.0 TH/MM3 CBC Comment DIFF FINAL Differential Comment Blood Urea Nitrogen 39 MG/DL Creatinine 1.16 MG/DL Random Glucose 98 MG/DL Calcium Level 8.6 MG/DL Phosphorus Level 2.5 MG/DL Magnesium Level 2.2 MG/DL Sodium Level 141 MEQ/L Potassium Level 3.6 MEQ/L Chloride Level 112 MEQ/L Carbon Dioxide Level 16.5 MEQ/L Anion Gap 13 MEQ/L Estimat Glomerular Filtration Rate 59 ML/MIN Triglycerides Level 91 MG/DL Cholesterol Level 56 MG/DL LDL Cholesterol 24 MG/DL HDL Cholesterol 13.5 MG/DL Cholesterol/HDL Ratio 4.14 RATIO Urine Color YELLOW Urine Turbidity HAZY Urine pH 5.5 Urine Specific [place] 1.013 Urine Protein 30 mg/dL Urine Glucose (UA) NEG mg/dL Urine Ketones 10 mg/dL Urine Occult Blood TRACE Urine Nitrite NEG Urine Bilirubin NEG Urine Urobilinogen LESS THAN 2.0 MG/DL Urine Leukocyte Esterase NEG Urine RBC 1 /hpf Urine WBC 10 /hpf Urine Squamous Epithelial Cells <1 /hpf Urine Amorphous Sediment MOD Urine Bacteria FEW /hpf Urine Mucus FEW /lpf Microscopic Urinalysis Comment CATH-CULTURE IND Prothrombin Time 11.9 SEC Prothromb Time International Ratio 1.1 RATIO Assessment and Plan Problem List: (1) NSTEMI (non-ST elevated myocardial infarction) ICD Codes: I21.4 - Non-ST elevation (NSTEMI) myocardial infarction (2) HTN (hypertension) ICD Codes: I10 - Essential (primary) hypertension Status: Chronic (3) HLD (hyperlipidemia) ICD Codes: E78.5 - Hyperlipidemia, unspecified (4) Protein calorie malnutrition ICD Codes: E46 - Unspecified protein-calorie malnutrition Status: Acute Assessment and Plan No angina or CHF symptoms. Remains stable p a small NSTEMI. Continue current program with Brilinta, ASA, beta mallika and statin. Discharge back to [place] as planned. Problem Qualifiers (1) HTN (hypertension): Qualified Codes: I10 - Essential (primary) hypertension Azael Alas MD Mar 24, 2017 15:44
== END 2017-03-24 16:00 | DRG 281 ==
LOC: NEPE 22:13 → UNDOADMIN 03-23 02:09 → NEDA 03-23 02:09 → INTOOBSV 03-23 02:25 → NEDA 03-23 02:25 → HCIS 03-23 06:20 → OBSVTOIN 03-23 11:59
PROVIDERS: ADMIT Family Medicine; ATTEND Family Medicine
DX: I21.4 Non-ST elevation (NSTEMI) myocardial infarction (principal); E46 Unspecified protein-calorie malnutrition; F03.90 Unspecified dementia, unspecified severity, without behavioral disturbance, psychotic disturbance, mood disturbance, and anxiety; Z68.1 Body mass index [BMI] 19.9 or less, adult; J44.1 Chronic obstructive pulmonary disease with (acute) exacerbation; F32.9 Major depressive disorder, single episode, unspecified; M19.90 Unspecified osteoarthritis, unspecified site; I10 Essential (primary) hypertension; H91.90 Unspecified hearing loss, unspecified ear; E78.5 Hyperlipidemia, unspecified; E87.6 Hypokalemia; W19.XXXA Unspecified fall, initial encounter; M25.572 Pain in left ankle and joints of left foot; Z86.73 Personal history of transient ischemic attack (TIA), and cerebral infarction without residual deficits; Z87.891 Personal history of nicotine dependence
CPT/HCPCS: 70450; 71010; 72170; 73552; 73590; 73610; 80048; 80053; 80061; 81001; 82550; 83735; 83880; 84100; 84132; 84484; 85025; 85610; 85730; 87086; 93005; 94640; 94664; J1650; J7040

== ENCOUNTER 2017-04-05 02:36 | Inpatient (IN) | payer MEDICARE, OTHER ==
[~2017-04-05] VITALS: Ht 167.6 cm; Wt 53.7 kg
[2017-04-05] VITALS (20 sets, daily range): BP systolic 79–117; BP diastolic 43–61; PULSE 79–92; RESP 16–28; TEMP 97.6–98.2; O2SAT 93–100
[~2017-04-05 02:36] MED LIST changes: +BRIL90TA PO; +CARV6.25 PO; -PLAV75TA29 PO; +POTA20TA5 PO; -TRAM50TA PO
--- NOTE | 2017-04-05 02:48 | PD ---
HPI Chief Complaint: Respiratory Distress Time Seen by Provider: 02:47 Travel History International Travel<30 days: No Contact w/Intl Traveler<30days: No Traveled to known affect area: No History of Present Illness HPI The patient is an 87 year old male who presents to the [facility] emergency department with a history of shortness of breath noticed by the residential staff prior to arrival. On ambulance services arrival the patient was noted to have O2 saturations in the 70s. The patient had IV access obtained. The patient was placed on supplemental oxygen. The patient's O2 saturation improved on a nebulizer treatment. The patient was given Solu-Medrol 125 mg IV. The patient reportedly had wheezing in all lung avendaño prior to arrival. The patient does have a known history of COPD. Unfortunate, the patient does have a history of dementia and is extremely hard of hearing making his history and review of systems extremely limited from him. The patient on arrival does report that his shortness of breath is improving. The patient supplemental history is obtained from reviewing the electronic medical record and the residential record. FORMERLY [facility], [facility] Past Medical History Narrative Medical The patient's past medical history is significant for being hard of hearing, history of dementia, arthritis, depression, hyperlipidemia, COPD, hypertension, history of a cerebrovascular accident. Arthritis: Yes Depression: Yes Cancer: No High Cholesterol: Yes COPD: Yes Cerebrovascular Accident: Yes (Patient denies) Coronary Artery Disease: Yes Diminished Hearing: Yes Endocrine: No Genitourinary: No Hypertension: Yes Immune Disorder: No Neurologic: No Reproductive: No Immunizations Current: No Past Surgical History Narrative Surgical The patient's past surgical history is significant for a cholecystectomy, rectal fissure repair. Cholecystectomy: Yes Other Surgery: Yes (RECTAL FISSURE REPAIR IN [facility]) Social History Alcohol Use: No Tobacco Use: No Substance Use: No Allergies-Medications (Allergen,Severity, Reaction): Coded Allergies: No Known Allergies (Verified , 02/07/17) Reported Meds & Prescriptions Reported Meds & Active Scripts Active Potassium Chloride Microencaps 20 Meq Tab 20 Meq PO Q12HR 30 Days Coreg (Carvedilol) 6.25 Mg Tab 6.25 Mg PO Q12HR 30 Days Lisinopril 5 Mg Tab 5 Mg PO DAILY 30 Days Norvasc (Amlodipine Besylate) 5 Mg Tab 10 Mg PO DAILY 30 Days Cardura (Doxazosin Mesylate) 1 Mg Tab 1 Mg PO HS 30 Days Duoneb (Ipratropium-Albuterol Neb) 0.5-2.5 Mg/3 Ml Neb 1 Ampule NEB Q6HR NEB PRN 7 Days Seroquel (Quetiapine Fumarate) 200 Mg Tab 200 Mg PO DAILY Pravastatin 80 Mg Tab 80 Mg PO DAILY Escitalopram Liq (Escitalopram Oxalate) 5 Mg/5 Ml Soln 10 Mg PO DAILY Colace (Docusate Sodium) 100 Mg Capsule 100 Mg PO BID PRN Vitamin D3 (Cholecalciferol) 1,000 Unit Chew 1,000 Units CHEW DAILY Bupropion HCl 100 Mg Tab 150 Mg PO BID Aspirin 81 Mg Chew 81 Mg CHEW DAILY 30 Days Reported Brilinta (Ticagrelor) 90 Mg Tab 90 Mg PO BID Bactrim DS (Sulfamethoxazole-Trimethoprim) 800-160 Mg Tab 1 Tab PO BID Review of Systems ROS Limitations: Poor Historian Except as stated in HPI: all other systems reviewed are Neg General / Constitutional: No: Fever Eyes: No: Visual changes HENT: Positive: Congestion, No: Headaches Cardiovascular: Positive: Dyspnea on exertion, No: Chest Pain or Discomfort Respiratory: Positive: Cough, Shortness of Breath Gastrointestinal: No: Nausea, Vomiting, Diarrhea, Abdominal Pain Genitourinary: No: Dysuria Musculoskeletal: No: Pain Skin: No Rash Neurologic: No: Weakness Psychiatric: No: Depression Endocrine: No: Polydipsia Hematologic/Lymphatic: No: Easy Bruising Physical Exam Narrative General: The patient is a well-developed thin appearing male, in some respiratory distress. The patient has tachypnea noted with expiratory wheezes noted. The patient has some accessory muscle use noted. Respiratory therapy was available at the bedside and placed the patient immediately on BiPAP.. Head and Neck exam: Head is normocephalic atraumatic. Eyes: EOMI, pupils are equal round and reactive to light. Nose: Midline septum with pink mucous membranes Mouth: Dentition unremarkable. Moist mucus membranes. Posterior oropharynx is not erythematous. No tonsillar hypertrophy. Uvula midline. Airway patent. Neck: No palpable lymphadenopathy. No nuchal rigidity. No thyromegaly. Cardiovascular: Regular rate and rhythm without murmurs, gallops, or rubs. Lungs: Expiratory wheezes audible throughout bilateral lung avendaño. No rhonchi, no crackles audible. Decreased breath sounds in bilateral bases with accessory muscle use. No tripoding. No paroxysmal abdominal breathing. Abdomen: Soft, without tenderness to palpation in all 4 quadrants of the abdomen. No guarding, rebound, or rigidity. Normal bowel sounds are audible. No tenderness on palpation of McBurney's point. Extremities: No clubbing, cyanosis, or edema. 2+ pulses in all 4 extremities. No calf tenderness on palpation. Back: No costovertebral angle tenderness to palpation. Neurologic Exam: Grossly nonfocal. Skin Exam: No rash noted. Intact skin that is warm and dry. Data Data Last Documented VS Vital Signs Date Time Temp Pulse Resp B/P (MAP) Pulse Ox O2 Delivery O2 Flow Rate FiO2 04/05/17 05:16 84 18 84/52 (63) 94 Nasal Cannula 4.00 04/05/17 02:40 35 04/05/17 02:38 97.9 Orders Orders Electrocardiogram (04/05/17 03:07) Complete Blood Count With Diff (04/05/17 03:07) Comprehensive Metabolic Panel (04/05/17 03:07) Creatine Kinase (Cpk) (04/05/17 03:07) Ckmb (Isoenzyme) Profile (04/05/17 03:07) Troponin I (04/05/17 03:07) B-Type Natriuretic Peptide (04/05/17 03:07) Prothrombin Time / Inr (Pt) (04/05/17 03:07) Act Partial Throm Time (Ptt) (04/05/17 03:07) Arterial Blood Gas (Abg) (04/05/17 03:07) Blood Culture (04/05/17 03:07) C-Reactive Protein (Crp) (04/05/17 03:07) Lipase (04/05/17 03:07) Urinalysis - C+S If Indicated (04/05/17 03:07) Magnesium (Mg) (04/05/17 03:07) Chest, Single Ap (04/05/17 03:07) Iv Access Insert/Monitor (04/05/17 03:07) Ecg Monitoring (04/05/17 03:07) Oximetry (04/05/17 03:07) Oxygen Administration (04/05/17 03:07) Sodium Chloride 0.9% Flush (Ns Flush) (04/05/17 03:15) Methylprednisolone So Succ Inj (Solumedr (04/05/17 03:15) Albuterol-Ipratropium Neb (Duoneb Neb) (04/05/17 03:15) Resp Bipap / Cpap Non Invas Vt (04/05/17 03:07) Lactic Acid Sepsis Protocol (04/05/17 03:07) Ceftriaxone Inj (Rocephin Inj) (04/05/17 03:15) Azithromycin Inj (Zithromax Inj) (04/05/17 03:15) Sodium Chlorid 0.9% 500 Ml Inj (Ns 500 M (04/05/17 04:00) Sodium Chlorid 0.9% 500 Ml Inj (Ns 500 M (04/05/17 05:15) Magnesium Oxide (Mag-Ox) (04/05/17 05:45) Magnesium Sulfate Inj (Magnesium Sulfate (04/05/17 05:45) Magnesium Sulfate Inj (Magnesium Sulfate (04/05/17 05:45) Potassium Chlor 20 Meq Premix (Kcl 20 Me (04/05/17 05:45) Potassium Chlor 20 Meq Premix (Kcl 20 Me (04/05/17 05:45) Potassium Chlor 40 Meq Premix (Kcl 40 Me (04/05/17 05:45) Potassium Chlor 40 Meq Premix (Kcl 40 Me (04/05/17 05:45) Potassium Phosphate (K-Phos) (04/05/17 05:45) Potassium Phosphate (K-Phos) (04/05/17 05:45) Potassium Phosphate Inj (Potassium Phosp (04/05/17 05:45) Sodium Phosphate Inj (Sodium Phosphate I (04/05/17 05:45) ^ Medication Admin Instruction (04/05/17 05:42) Notify Dr: Other (04/05/17 05:42) Inpatient Certification (04/05/17 05:42) Resp Ezpap/Pep Therapy (04/05/17 05:42) Resp Acapella/Pep/Chest Vibra (04/05/17 05:42) Resp Incentive Spirometry (04/05/17 05:42) Cbc No Diff, Includes Plts (04/06/17 05:00) Cbc No Diff, Includes Plts (04/07/17 05:00) Cbc No Diff, Includes Plts (04/08/17 05:00) Cbc No Diff, Includes Plts (04/09/17 05:00) Cbc No Diff, Includes Plts (04/10/17 05:00) Cbc No Diff, Includes Plts (04/11/17 05:00) Cbc No Diff, Includes Plts (04/12/17 05:00) Basic Metabolic Panel (Bmp) (04/06/17 05:00) Basic Metabolic Panel (Bmp) (04/07/17 05:00) Basic Metabolic Panel (Bmp) (04/08/17 05:00) Basic Metabolic Panel (Bmp) (04/09/17 05:00) Basic Metabolic Panel (Bmp) (04/10/17 05:00) Basic Metabolic Panel (Bmp) (04/11/17 05:00) Basic Metabolic Panel (Bmp) (04/12/17 05:00) Bedside Glucose CHIVO.Q6H (04/05/17 05:42) Blood Glucose Goal (Criteria) (04/05/17 05:42) Hypoglycemia 51 - 69 Mg/Dl (04/05/17 05:42) Hypoglycemia 50 Mg/Dl Or < (04/05/17 05:42) Notify Dr: Other (04/05/17 05:42) Dextrose 50% In [place] (Vial) Inj (D50w (Vi (04/05/17 05:45) Insulin Human Reg Supp Scale (Novolin R (04/05/17 06:00) Neuro Checks CHIVO.Q1H (04/05/17 05:42) Albuterol-Ipratropium Neb (Duoneb Neb) (04/05/17 10:00) Albuterol-Ipratropium Neb (Duoneb Neb) (04/05/17 05:45) Vancomycin Consult Pharmacy (Vancomycin (04/05/17 05:45) Admit Order (Ed Use Only) (04/05/17 05:44) Azithromycin Inj (Zithromax Inj) (04/06/17 04:00) Ceftriaxone Inj (Rocephin Inj) (04/06/17 05:00) Labs Laboratory Tests Test 04/05/17 03:20 04/05/17 03:40 04/05/17 03:51 04/05/17 03:57 White Blood Count 27.5 TH/MM3 Red Blood Count 3.65 MIL/MM3 Hemoglobin 10.0 GM/DL Hematocrit 32.1 % Mean Corpuscular Volume 88.0 FL Mean Corpuscular Hemoglobin 27.3 PG Mean Corpuscular Hemoglobin Concent 31.1 % Red Cell Distribution Width 17.6 % Platelet Count 394 TH/MM3 Mean Platelet Volume 7.9 FL Neutrophils (%) (Auto) 93.6 % Lymphocytes (%) (Auto) 1.8 % Monocytes (%) (Auto) 4.3 % Eosinophils (%) (Auto) 0.2 % Basophils (%) (Auto) 0.1 % Neutrophils # (Auto) 25.8 TH/MM3 Lymphocytes # (Auto) 0.5 TH/MM3 Monocytes # (Auto) 1.2 TH/MM3 Eosinophils # (Auto) 0.1 TH/MM3 Basophils # (Auto) 0.0 TH/MM3 CBC Comment DIFF FINAL Differential Comment Blood Urea Nitrogen 33 MG/DL Creatinine 1.76 MG/DL Random Glucose 100 MG/DL Total Protein 6.3 GM/DL Albumin 2.9 GM/DL Calcium Level 8.0 MG/DL Magnesium Level 2.1 MG/DL Alkaline Phosphatase 110 U/L Aspartate Amino Transf (AST/SGOT) 13 U/L Alanine Aminotransferase (ALT/SGPT) 11 U/L Total Bilirubin 0.4 MG/DL Sodium Level 145 MEQ/L Potassium Level 4.3 MEQ/L Chloride Level 112 MEQ/L Carbon Dioxide Level 22.7 MEQ/L Anion Gap 10 MEQ/L Estimat Glomerular Filtration Rate 37 ML/MIN Lactic Acid Level 3.6 mmol/L Total Creatine Kinase 43 U/L Troponin I 0.04 NG/ML C-Reactive Protein 0.96 MG/DL B-Type Natriuretic Peptide 202 PG/ML Lipase 185 U/L Urine Color YELLOW Urine Turbidity CLEAR Urine pH 5.5 Urine Specific [place] 1.017 Urine Protein TRACE mg/dL Urine Glucose (UA) NEG mg/dL Urine Ketones NEG mg/dL Urine Occult Blood NEG Urine Nitrite NEG Urine Bilirubin NEG Urine Urobilinogen 2.0 MG/DL Urine Leukocyte Esterase SMALL Urine RBC LESS THAN 1 /hpf Urine WBC 3 /hpf Urine Mucus FEW /lpf Microscopic Urinalysis Comment CULT NOT INDICATED Blood Gas Puncture Site RT FEMORAL Blood Gas Patient Temperature 98.6 Blood Gas HCO3 20 mmol/L Blood Gas Base Excess -3.1 mmol/L Blood Gas Oxygen Saturation 91 % Arterial Blood pH 7.46 Arterial Blood Partial Pressure CO2 29 mmHg Arterial Blood Partial Pressure O2 63 mmHG Arterial Blood Oxygen Content 11.9 Vol % Arterial Blood Carboxyhemoglobin 1.2 % Arterial Blood Methemoglobin 0.6 % Blood Gas Hemoglobin 9.3 G/DL Oxygen Delivery Device BIPAP Blood Gas Ventilator Setting IPAP 10 EPAP 5 Blood Gas Inspired Oxygen 35 % Prothrombin Time 11.2 SEC Prothromb Time International Ratio 1.0 RATIO Activated Partial Thromboplast Time 22.4 SEC MDM Medical Decision Making Medical Screen Exam Complete: Yes Emergency Medical Condition: Yes Medical Record Reviewed: Yes Interpretation(s) Last Impressions Chest X-Ray 04/05/17 0307 Signed Impressions: Service Date/Time: Wednesday, April 05, 2017 03:10 - CONCLUSION: Mild left base parenchymal opacity Julio Cesar Orlando MD Differential Diagnosis COPD exacerbation, versus pneumonia, versus congestive heart failure Narrative Course During the course of the patients emergency department visit, the patients history, examination, and differential diagnosis were reviewed with the patient. The patient had IV access obtained and blood work sent for analysis. The patient was placed on a campus monitor with oximetry and blood pressure monitoring. An ECG was done on arrival. The patient's ECG reveals a sinus rhythm heart rate of 88, no acute ST segment elevation is noted. The patient does have some ST depression in V5, V6. The patient has a tremulous baseline noted which could be affecting interpretation of the ECG. The patient was initially provided normal saline a 500 mL bolus 1, Rocephin 1 g IV, Zithromax 500 IV, DuoNeb 2. The patient reported improvement on the BiPAP. He was requesting that it be removed. The patient was given a respite from the BiPAP and placed on nasal cannula O2. The patient's oxygenation was maintained. Unfortunate, the patient's blood pressure did drop down into the 90s and then subsequently into the 80s systolic. The patient was given a second fluid bolus of 500 mL 1. Initially the patient was only hydrated in order to avoid fluid overload. Blood cultures 2 were drawn in this patient, lactic acid was sent. The patient was provided Solu-Medrol prior to arrival by ambulance services. The patients laboratory studies were reviewed and remarkable for a white count of 27.5, hemoglobin 10, platelets 394 with 93.6 neutrophils, lymphocytes 1.8, CMP is remarkable for chloride 112, BUN 33, creatinine 1.76, AST 13, ALT 11, CPK 43, troponin I 0.04, C-reactive protein 0.96, BNP elevated at 202, lipase 185, lactic acid 3.6, PT 11.2, PTT 22.4 Radiology studies were reviewed and remarkable for a chest x-ray that shows a mild left base parenchymal opacity suspicious for pneumonia. The patients results were discussed with the patient, including the plan of care. I explained that further testing and/ or monitoring is indicated based on the patients history, examination, and/ or laboratory findings. Therefore, I recommended admission for additional evaluation. The patient expressed understanding and was agreeable with this plan. The patient was admitted to the hospital in critical condition and sent to a bed under the care of the cement mason helper service Critical Care Narrative Aggregate critical care time was 32 minutes. Time to perform other separately billable procedures was not included in the critical care time. My time did not include minutes spent treating any other patients simultaneously or on activities that did not directly contribute to the patient's treatment. The services I provided to this patient were to treat and/or prevent clinically significant deterioration that could result in: Cardiovascular collapse due to sepsis, versus fluid overload from over resuscitation with IV crystalloid, versus respiratory failure I provided critical care services requiring my management, as noted below: Chart data review, documentation time, medication orders and management, vital sign assessments/reviewing monitor data, ordering and reviewing lab tests, ordering and interpreting/reviewing x-rays and diagnostic studies, care of the patient and discussion of the patient with the admitting physicians. Sepsis Criteria SIRS Criteria (2 or more): Heart rate over 90, RR > 20 or PaCO2 < 32, WBC > 55004, < 4000 or > 10% bands Sepsis Criteria (SIRS+source): Infect source susp/known Severe Sepsis (+one): Hypotension, Lactate >2 Criteria Outcome: Meets SIRS criteria, Meets sepsis criteria, Meets severe sepsis criteria Physician Communication Physician Communication The patient's case was discussed with Dr. Ojeda who did agree to admit the patient for continued evaluation and treatment at this time to the intensive care unit. Diagnosis Primary Impression: Sepsis Qualified Codes: A41.9 - Sepsis, unspecified organism Additional Impression: Pneumonia Qualified Codes: J18.1 - Lobar pneumonia, unspecified organism Anais Gardner MD Apr 05, 2017 02:48
[2017-04-05] MEDS ORDERED: cefTRIAXone INJ 1,000 MG in SODIUM CHLORIDE 0.9% INJ 100 ML IV ONE (03:15)
[2017-04-05] MEDS ORDERED: SODIUM CHLORIDE 0.9% FLUSH 10 ML FLUSH IVF PRN (03:15)
[2017-04-05] MEDS ORDERED: AZITHROMYCIN INJ 500 MG in SODIUM CHLOR 0.9% 250 ML INJ 250 ML IV ONE (03:15)
[2017-04-05] MEDS ORDERED: methylPREDNISolone SOD SUCC 125 MG/2 ML VIAL IV PUSH ONE (03:15)
[2017-04-05] MEDS: RESP: ALBUTEROL 2.5 MG/IPRATROPIUM 0.5 MG NEB (SCH) INH ×6 (03:18→23:56)
--- NOTE | 2017-04-05 03:28 | RADRPT ---
EXAM DATE/TIME: 04/05/2017 03:10 [place] COMPARISON: CHEST SINGLE AP, March 23, 2017, 0:59. INDICATIONS : Shortness of breath. MEDICAL HISTORY : Cerebrovascular disease. Hypertension. Chronic obstructive pulmonary SURGICAL HISTORY : None. ENCOUNTER: Initial ACUITY: 1 day PAIN SCORE: 0/10 LOCATION: Bilateral chest FINDINGS: There is parenchymal opacity in the left lung base which may be infiltrate, however the appearance is improved from the prior exam. Right lung is grossly clear. Cardiac contours are satisfactory. CONCLUSION: Mild left base parenchymal opacity Julio Cesar Orlando MD on April 05, 2017 at 3:25 Board Certified Radiologist. This report was verified electronically.
[2017-04-05 03:42] LABS: AUTOMATED NEUTROPHIL # 25.8 TH/MM3 (1.8-7.7); BASOPHIL % 0.1 % (0.0-2.0); EOSINOPHIL # 0.1 TH/MM3 (0-0.4); EOSINOPHIL % 0.2 % (0.0-4.0); HEMATOCRIT 32.1 % (39.0-51.0); HEMO FLAGS DIFF FINAL; LYMPH % 1.8 % (9.0-44.0); LYMPHOCYTE # 0.5 TH/MM3 (1.0-4.8); MEAN CORPUSCULAR HEMOGLOBIN 27.3 PG (27.0-34.0); MEAN CORPUSCULAR HGB CONC 31.1 % (32.0-36.0); MONO % 4.3 % (0.0-8.0); NEUT % 93.6 % (16.0-70.0); PLATELET COUNT 394 TH/MM3 (150-450); RED BLOOD COUNT 3.65 MIL/MM3 (4.50-5.90); RED CELL DISTRIBUTION WIDTH 17.6 % (11.6-17.2); WHITE BLOOD COUNT 27.5 TH/MM3 (4.0-11.0)
[2017-04-05 03:59] LABS: BLOOD GAS BASE EXCESS -3.1 mmol/L (-2-2); BLOOD GAS CARBOXYHEMOGLOBIN 1.2 % (0-4); BLOOD GAS HCO3 20 mmol/L (22-26); BLOOD GAS METHEMOGLOBIN 0.6 % (0-2); BLOOD GAS O2 HGB SATURATION 91 % (90-100); BLOOD GAS OXYGEN CONTENT 11.9 Vol % (12.0-20.0); BLOOD GAS PCO2 29 mmHg (38-42); BLOOD GAS PO2 63 mmHG (61-120); BLOOD GAS TOTAL HGB 9.3 G/DL (12.0-16.0); CRITICAL VALUE NO; DRAW SITE RT FEMORAL; FIO2 35 %; NUMBER OF ARTERIAL PUNCTURES 1; OXYGEN DEVICE BIPAP; STAT YES; TEMP CORR TO 98.6; VENT SETTINGS IPAP 10 EPAP 5
[2017-04-05] MEDS ORDERED: SODIUM CHLORID 0.9% 500 ML INJ 500 ML IV ONE ×2 (04:00→05:15)
[2017-04-05 04:05] LABS: BLOOD, URINE NEG (NEG); COMMENT (UR) CULT NOT INDICATED; CULTURE IF INDICATED CULT NOT INDICATED; GLUCOSE,URINE NEG (NEG); KETONE, URINE NEG (NEG); MUCUS URINE FEW /lpf (OCC); NITRITE,URINE NEG (NEG); PH, URINE 5.5 (5.0-8.5); URINE COLOR YELLOW (YELLW/STRAW)
[2017-04-05 04:06] LABS: ALT (GPT) 11 U/L (12-78); ANION GAP 10 MEQ/L (5-15); AST (GOT) 13 U/L (15-37); BICARBONATE 22.7 MEQ/L (21.0-32.0); BLOOD UREA NITROGEN 33 MG/DL (7-18); CHLORIDE 112 MEQ/L (98-107); GLOMERULAR FILTRATION RATE 37 ML/MIN (>89); MAGNESIUM 2.1 MG/DL (1.5-2.5); POTASSIUM 4.3 MEQ/L (3.5-5.1); SODIUM (NA) 145 MEQ/L (136-145)
[2017-04-05 04:09] LABS: ALKALINE PHOSPHATASE 110 U/L (45-117); TOTAL BILIRUBIN ADULT 0.4 MG/DL (0.2-1.0)
[2017-04-05 04:32] LABS: CREATINE KINASE 43 U/L (39-308)
[2017-04-05 04:40] LABS: APTT (PATIENT) 22.4 SEC (24.3-30.1); PROTHROMBIN TIME - PATIENT 11.2 SEC (9.8-11.6)
[2017-04-05 05:38] LABS: LACTIC ACID GHOST NOT REPORTABLE
[2017-04-05] MEDS ORDERED: SENNOSIDES 8.6 MG TAB PO PRN (05:45)
[2017-04-05] MEDS ORDERED: RESP: ALBUTEROL 2.5 MG/IPRATROPIUM 0.5 MG NEB (PRN) INH (05:45)
[2017-04-05] MEDS ORDERED: BISACODYL 10 MG SUPP RECTAL PRN (05:45)
[2017-04-05] MEDS ORDERED: MAGNESIUM SULFATE INJ 4 GM in SODIUM CHLORIDE 0.9% INJ 92 ML IV PRN (05:45)
[2017-04-05] MEDS ORDERED: MAGNESIUM OXIDE 400 MG TAB PO PRN (05:45)
[2017-04-05] MEDS ORDERED: ACETAMINOPHEN 325 MG TAB PO PRN (05:45)
[2017-04-05] MEDS ORDERED: LACTULOSE SYRUP 20 GM/30 ML CUP PO PRN (05:45)
[2017-04-05] MEDS ORDERED: MAGNESIUM HYDROXIDE SUSP 30 ML CUP PO PRN (05:45)
[2017-04-05] MEDS ORDERED: POTASSIUM PHOSPHATE MONOBASIC 500 MG TAB PO PRN (05:45)
[2017-04-05] MEDS ORDERED: POTASSIUM CHLOR 40 MEQ PREMIX 100 ML IV PRN ×2 (05:45)
[2017-04-05] MEDS ORDERED: ONDANSETRON HCL 4 MG/2 ML VIAL IV PUSH PRN (05:45)
[2017-04-05] MEDS ORDERED: MISCELLANEOUS NURSING INFORMATION XX SCH (05:45)
[2017-04-05] MEDS ORDERED: SODIUM PHOSPHATE INJ 30 MMOL in SODIUM CHLOR 0.9% 250 ML INJ 240 ML IV PRN (05:45)
[2017-04-05] MEDS ORDERED: VANCOMYCIN INJ 1,100 MG in SODIUM CHLOR 0.9% 250 ML INJ 250 ML IV ONE (05:45)
[2017-04-05] MEDS ORDERED: POTASSIUM PHOSPHATE MONOBASIC 500 MG TAB PO/TUBE PRN (05:45)
[2017-04-05] MEDS ORDERED: SODIUM CHLORIDE 0.9% FLUSH 10 ML FLUSH IV FLUSH PRN (05:45)
[2017-04-05] MEDS ORDERED: DEXTROSE 50% IN WATER 50 ML VIAL(D50) IV PUSH PRN (05:45)
[2017-04-05] MEDS ORDERED: Vancomycin Consult Pharmacy 1 EA OTHER SCH (05:45)
[2017-04-05] MEDS ORDERED: MAGNESIUM SULFATE INJ 2 GM in SODIUM CHLORIDE 0.9% INJ 96 ML IV PRN (05:45)
[2017-04-05] MEDS ORDERED: POTASSIUM CHLOR 20 MEQ PREMIX 100 ML IV PRN ×2 (05:45)
[2017-04-05] MEDS ORDERED: CHLORHEXIDINE GLUCONATE 2 % 1 PACK (2 CLOTHS) TOP PRN (05:45)
[2017-04-05] MEDS ORDERED: POTASSIUM PHOSPHATE INJ 30 MMOL in SODIUM CHLOR 0.9% 250 ML INJ 250 ML IV PRN (05:45)
[2017-04-05] MEDS ORDERED: VANCOMYCIN 1,000 MG/NS 250 ML IV ONE ×2 (06:00)
[2017-04-05] MEDS: HEPARIN SODIUM - SQ 10,000 UNITS/ML VIAL SQ SCH ×3 (06:23→23:19)
[2017-04-05] MEDS: SODIUM CHLOR 0.9% 1000 ML INJ 1,000 ML IV SCH ×3 (06:26→23:18)
[2017-04-05] MEDS ORDERED: BACT800T5 PO (06:28)
[2017-04-05] MEDS ORDERED: BRIL90TA PO (06:29)
[2017-04-05] MEDS: INSULIN NovoLIN REGULAR SUPPLEMENTAL SCALE SQ SCH ×3 (06:33→17:01)
[2017-04-05 06:47] LABS: BLOOD GAS BASE EXCESS -6.1 mmol/L (-2-2); BLOOD GAS CARBOXYHEMOGLOBIN 1.4 % (0-4); BLOOD GAS HCO3 17 mmol/L (22-26); BLOOD GAS METHEMOGLOBIN 0.8 % (0-2); BLOOD GAS O2 HGB SATURATION 85 % (90-100); BLOOD GAS OXYGEN CONTENT 10.1 Vol % (12.0-20.0); BLOOD GAS PCO2 26 mmHg (38-42); BLOOD GAS PO2 52 mmHG (61-120); BLOOD GAS TOTAL HGB 8.5 G/DL (12.0-16.0); TEMP CORR TO 98.6
[2017-04-05 06:48] LABS: CRITICAL VALUE YES; DRAW SITE RT FEMORAL; LITER FLOW 2 L/M; NUMBER OF ARTERIAL PUNCTURES 1; OXYGEN DEVICE NASAL CANNULA; STAT NO
[2017-04-05] MEDS: SODIUM CHLORIDE 0.9% FLUSH 10 ML FLUSH IV FLUSH SCH ×2 (08:13→23:18)
[2017-04-05] MEDS: FAMOTIDINE 20 MG/2 ML VIAL IV PUSH SCH ×2 (08:13→23:18)
[2017-04-05] MEDS: DOCUSATE SODIUM 50 MG/SENNA 8.6 MG TAB PO SCH ×2 (08:13→21:00)
[2017-04-05] MEDS: methylPREDNISolone SOD SUCC 125 MG/2 ML VIAL IV PUSH SCH ×2 (08:13→23:17)
--- NOTE | 2017-04-05 15:02 | EKG ---
Date Performed: 04/05/2017 Time Performed: 02:49:22 PTAGE: 87 years EKG: Sinus rhythm PROBABLE INFERIOR MYOCARDIAL INFARCTION ST DEPRESSION, CONSIDER SUBENDOCARDIAL INJURY ABNORMAL ECG PREVIOUS TRACING : 03/23/2017 07.31 Compared to prior tracing no significant change DOCTOR: Josue Cantor Interpretating Date/Time 04/05/2017 15:01:25
--- NOTE | 2017-04-05 16:36 | HHI.HP ---
HPI Service Critical Care Medicine Primary Care Physician Unknown Admission Diagnosis Pneumonia, Sepsis Diagnosis: Travel History International Travel<30 Days: No Contact w/Intl Traveler <30 Da: No Traveled to Known Affected Are: No History of Present Illness HPI The patient is an 87 year old male who presents to the [facility] emergency department with a history of shortness of breath noticed by the long-term staff prior to arrival. On ambulance services arrival the patient was noted to have O2 saturations in the 70s. The patient had IV access obtained. The patient was placed on supplemental oxygen. The patient's O2 saturation improved on a nebulizer treatment. The patient was given Solu-Medrol 125 mg IV. The patient reportedly had wheezing in all lung avendaño prior to arrival. The patient does have a known history of COPD. Unfortunate, the patient does have a history of dementia and is extremely hard of hearing making his history and review of systems extremely limited from him. The patient on arrival did report that his shortness of breath was improving. Patient was hypotensive in the ER and was given a fluid bolus and started on antibiotics. He was accepted for admission by critical care medicine service. When I evaluated the patient earlier this morning he was resting in bed on nasal cannula. History was obtained by reviewing records. History PFSH Past Medical History Narrative Medical The patient's past medical history is significant for being hard of hearing, history of dementia, arthritis, depression, hyperlipidemia, COPD, hypertension, history of a cerebrovascular accident. Arthritis: Yes Depression: Yes Cancer: No High Cholesterol: Yes COPD: Yes Cerebrovascular Accident: Yes (Patient denies) Coronary Artery Disease: Yes Diminished Hearing: Yes Endocrine: No Genitourinary: No Hypertension: Yes Immune Disorder: No Neurologic: No Reproductive: No Immunizations Current: No Past Surgical History Narrative Surgical The patient's past surgical history is significant for a cholecystectomy, rectal fissure repair. Cholecystectomy: Yes Other Surgery: Yes (RECTAL FISSURE REPAIR IN [facility]) Social History Alcohol Use: No Tobacco Use: No Substance Use: No Allergies-Medications Allergies-Medications (Allergen,Severity, Reaction): Coded Allergies: No Known Allergies (Verified , 02/07/17) Reported Meds & Prescriptions Reported Meds & Active Scripts Active Potassium Chloride Microencaps 20 Meq Tab 20 Meq PO Q12HR 30 Days Coreg (Carvedilol) 6.25 Mg Tab 6.25 Mg PO Q12HR 30 Days Lisinopril 5 Mg Tab 5 Mg PO DAILY 30 Days Norvasc (Amlodipine Besylate) 5 Mg Tab 10 Mg PO DAILY 30 Days Cardura (Doxazosin Mesylate) 1 Mg Tab 1 Mg PO HS 30 Days Duoneb (Ipratropium-Albuterol Neb) 0.5-2.5 Mg/3 Ml Neb 1 Ampule NEB Q6HR NEB PRN 7 Days Seroquel (Quetiapine Fumarate) 200 Mg Tab 200 Mg PO DAILY Pravastatin 80 Mg Tab 80 Mg PO DAILY Escitalopram Liq (Escitalopram Oxalate) 5 Mg/5 Ml Soln 10 Mg PO DAILY Colace (Docusate Sodium) 100 Mg Capsule 100 Mg PO BID PRN Vitamin D3 (Cholecalciferol) 1,000 Unit Chew 1,000 Units CHEW DAILY Bupropion HCl 100 Mg Tab 150 Mg PO BID Aspirin 81 Mg Chew 81 Mg CHEW DAILY 30 Days Reported Brilinta (Ticagrelor) 90 Mg Tab 90 Mg PO BID Bactrim DS (Sulfamethoxazole-Trimethoprim) 800-160 Mg Tab 1 Tab PO BID ROS Review of Systems ROS Limitations: Poor Historian Except as stated in HPI: all other systems reviewed are Neg General / Constitutional: No: Fever Eyes: No: Visual changes HENT: Positive: Congestion, No: Headaches Cardiovascular: Positive: Dyspnea on exertion, No: Chest Pain or Discomfort Respiratory: Positive: Cough, Shortness of Breath Gastrointestinal: No: Nausea, Vomiting, Diarrhea, Abdominal Pain Genitourinary: No: Dysuria Musculoskeletal: No: Pain Skin: No Rash Neurologic: No: Weakness Psychiatric: No: Depression Endocrine: No: Polydipsia Hematologic/Lymphatic: No: Easy Bruising Physical Exam Vital Signs Vital Signs Date Time Temp Pulse Resp B/P (MAP) Pulse Ox O2 Delivery O2 Flow Rate FiO2 04/05/17 07:29 94 Nasal Cannula 2.00 04/05/17 06:51 97.9 84 24 89/50 (63) 97 04/05/17 06:22 04/05/17 06:12 82 18 91/53 (66) 100 Room Air 4.00 04/05/17 05:16 84 18 84/52 (63) 94 Nasal Cannula 4.00 04/05/17 05:00 81 18 79/48 (58) 94 Nasal Cannula 4.00 04/05/17 04:14 91 22 98/52 (67) 98 Nasal Cannula 3.00 04/05/17 04:05 98 Nasal Cannula 3.00 04/05/17 03:30 84 24 90/43 (59) 95 BiPAP 04/05/17 03:29 96 BiPAP 04/05/17 03:29 BiPAP 04/05/17 02:40 99 35 04/05/17 02:38 97.9 04/05/17 02:38 92 28 109/58 (75) 93 Physical Exam Physical Exam Narrative General: Elderly male, laying in bed on nasal cannula in no acute distress. Head and Neck exam: Head is normocephalic atraumatic. Eyes: EOMI, pupils are equal round and reactive to light. Nose: Midline septum with pink mucous membranes Mouth: Dentition unremarkable. Moist mucus membranes. Posterior oropharynx is not erythematous. No tonsillar hypertrophy. Uvula midline. Airway patent. Neck: No palpable lymphadenopathy. No nuchal rigidity. No thyromegaly. Cardiovascular: Regular rate and rhythm without murmurs, gallops, or rubs. Lungs: Good air entry bilaterally, scattered rhonchi, minimal wheezing. Not using accessory muscles of respiration currently Abdomen: Soft, nontender, bowel sounds present, no guarding. No organomegaly appreciated Extremities: No clubbing, cyanosis, or edema. 2+ pulses in all 4 extremities. No calf tenderness on palpation. Neurologic Exam: Awake and alert, disoriented currently, Grossly nonfocal. Skin Exam: No rash noted. Intact skin that is warm and dry. Laboratory Laboratory Tests Test 04/05/17 03:20 04/05/17 03:40 04/05/17 03:51 04/05/17 03:57 White Blood Count 27.5 Red Blood Count 3.65 Hemoglobin 10.0 Hematocrit 32.1 Mean Corpuscular Volume 88.0 Mean Corpuscular Hemoglobin 27.3 Mean Corpuscular Hemoglobin Concent 31.1 Red Cell Distribution Width 17.6 Platelet Count 394 Mean Platelet Volume 7.9 Neutrophils (%) (Auto) 93.6 Lymphocytes (%) (Auto) 1.8 Monocytes (%) (Auto) 4.3 Eosinophils (%) (Auto) 0.2 Basophils (%) (Auto) 0.1 Neutrophils # (Auto) 25.8 Lymphocytes # (Auto) 0.5 Monocytes # (Auto) 1.2 Eosinophils # (Auto) 0.1 Basophils # (Auto) 0.0 CBC Comment DIFF FINAL Differential Comment Blood Urea Nitrogen 33 Creatinine 1.76 Random Glucose 100 Total Protein 6.3 Albumin 2.9 Calcium Level 8.0 Magnesium Level 2.1 Alkaline Phosphatase 110 Aspartate Amino Transf (AST/SGOT) 13 Alanine Aminotransferase (ALT/SGPT) 11 Total Bilirubin 0.4 Sodium Level 145 Potassium Level 4.3 Chloride Level 112 Carbon Dioxide Level 22.7 Anion Gap 10 Estimat Glomerular Filtration Rate 37 Lactic Acid Level 3.6 Total Creatine Kinase 43 Troponin I 0.04 C-Reactive Protein 0.96 B-Type Natriuretic Peptide 202 Lipase 185 Urine Color YELLOW Urine Turbidity CLEAR Urine pH 5.5 Urine Specific [place] 1.017 Urine Protein TRACE Urine Glucose (UA) NEG Urine Ketones NEG Urine Occult Blood NEG Urine Nitrite NEG Urine Bilirubin NEG Urine Urobilinogen 2.0 Urine Leukocyte Esterase SMALL Urine RBC LESS THAN 1 Urine WBC 3 Urine Mucus FEW Microscopic Urinalysis Comment CULT NOT INDICATED Blood Gas Puncture Site RT FEMORAL Blood Gas Patient Temperature 98.6 Blood Gas HCO3 20 Blood Gas Base Excess -3.1 Blood Gas Oxygen Saturation 91 Arterial Blood pH 7.46 Arterial Blood Partial Pressure CO2 29 Arterial Blood Partial Pressure O2 63 Arterial Blood Oxygen Content 11.9 Arterial Blood Carboxyhemoglobin 1.2 Arterial Blood Methemoglobin 0.6 Blood Gas Hemoglobin 9.3 Oxygen Delivery Device BIPAP Blood Gas Ventilator Setting IPAP 10 EPAP 5 Blood Gas Inspired Oxygen 35 Prothrombin Time 11.2 Prothromb Time International Ratio 1.0 Activated Partial Thromboplast Time 22.4 Test 04/05/17 05:53 04/05/17 06:30 04/05/17 06:55 Lactic Acid Level 3.5 Blood Gas Puncture Site RT FEMORAL Blood Gas Patient Temperature 98.6 Blood Gas HCO3 17 Blood Gas Base Excess -6.1 Blood Gas Oxygen Saturation 85 Arterial Blood pH 7.44 Arterial Blood Partial Pressure CO2 26 Arterial Blood Partial Pressure O2 52 Arterial Blood Oxygen Content 10.1 Arterial Blood Carboxyhemoglobin 1.4 Arterial Blood Methemoglobin 0.8 Blood Gas Hemoglobin 8.5 Oxygen Delivery Device NASAL CANNULA Blood Gas Liter Flow 2 Nasal Screen MRSA (PCR) MRSA NOT DETECTED Date/Time Source Procedure Growth Status 04/05/17 03:20 Blood Peripheral Aerobic Blood Culture Pending Received 04/05/17 03:20 Blood Peripheral Anaerobic Blood Culture Pending Received Result Diagram: 04/05/1731904/05/[id number] Imaging Last Impressions Chest X-Ray 04/05/17306 Signed Impressions: Service Date/Time: Wednesday, April 05, 2017 03:10 - CONCLUSION: Mild left base parenchymal opacity Julio Cesar Orlando MD Septic Shock Reassessment Heart: Regular rate and rhythm Lungs: Course Skin: Warm Peripheral Pulses: Bounding Right Radial Capillary Refill: Brisk Caprini VTE Risk Assessment Caprini VTE Risk Assessment: Mod/High Risk (score >= 2) Caprini Risk Assessment Model Point Value = 1 Point Value = 2 Point Value = 3 Point Value = 5 Age 41-60 Minor surgery BMI > 25 kg/m2 Swollen legs Varicose veins or History of unexplained or recurrent spontaneous Oral contraceptives or hormone replacement Sepsis (< 1 month) Serious lung disease, including pneumonia (< 1 month) Abnormal pulmonary function Acute myocardial infarction Congestive heart failure (< 1 month) History of inflammatory bowel disease Medical patient at bed rest Age 61-74 Arthroscopic surgery Major open surgery (> 45 min) Laparoscopic surgery (> 45 min) Malignancy Confined to bed (> 72 hours) Immobilizing plaster cast Central venous access Age >= 75 History of VTE Family history of VTE Factor V Leiden Prothrombin [id number] Lupus anticoagulant Anticardiolipin antibodies Elevated serum homocysteine Heparin-induced thrombocytopenia Other congenital or acquired thrombophilia Stroke (< 1 month) Elective arthroplasty Hip, pelvis, or leg fracture Acute spinal cord injury (< 1 month) Prophylaxis Regimen Total Risk Factor Score Risk Level Prophylaxis Regimen 0-1 Low Early ambulation 2 Moderate Order ONE of the following: *Sequential Compression Device (SCD) *Heparin 5000 units SQ BID 3-4 Higher Order ONE of the following medications: *Heparin 5000 units SQ TID *Enoxaparin/Lovenox 40 mg SQ daily (WT < 150 kg, CrCl > 30 mL/min) *Enoxaparin/Lovenox 30 mg SQ daily (WT < 150 kg, CrCl > 10-29 mL/min) *Enoxaparin/Lovenox 30 mg SQ BID (WT < 150 kg, CrCl > 30 mL/min) AND/OR *Sequential Compression Device (SCD) 5 or more Highest Order ONE of the following medications: *Heparin 5000 units SQ TID (Preferred with Epidurals) *Enoxaparin/Lovenox 40 mg SQ daily (WT < 150 kg, CrCl > 30 mL/min) *Enoxaparin/Lovenox 30 mg SQ daily (WT < 150 kg, CrCl > 10-29 mL/min) *Enoxaparin/Lovenox 30 mg SQ BID (WT < 150 kg, CrCl > 30 mL/min) AND *Sequential Compression Device (SCD) Assessment and Plan Assessment and Plan 87-year-old male with: Acute respiratory failure COPD exacerbation Sepsis Hypotension Delirium Dementia arthritis depression hyperlipidemia COPD H/O hypertension history of cerebrovascular accident. Plan: Neuro: Follow neuro status, avoid sedatives and narcotics Cardiovascular: IV hydration. Fluid bolus earlier today for hypotension. May require pressors if he remains hypotensive. Pulmonary: Continue nasal cannula, bronchodilators, IV Solu-Medrol. ID: Follow-up cultures, empiric antibiotic coverage. Received 1 dose of IV vancomycin. Continue Zithromax. Will switch Rocephin to cefepime 1 g IV every 8 hourly to cover for HCAP as patient is a long-term resident. Heme: Follow CBC Renal/: IV hydration, strict intake output, monitor and replete elect lites, follow BUN creatinine. GI/liver: Nothing by mouth till respiratory status improves. Endocrine: Watch for hyperglycemia, SSI for glycemic control if needed Prophylaxis: Pepcid, Heparin/ SCDs Consulted palliative care to assist with deciding goals of therapy. Jimmie Plunkett MD Apr 05, 2017 16:36
[2017-04-05] MEDS ORDERED: FAMOTIDINE 20 MG/2 ML VIAL IV PUSH SCH (17:00)
[2017-04-05] MEDS: CEFEPIME INJ 1,000 MG in SODIUM CHLORIDE 0.9% INJ 100 ML IV SCH ×2 (17:01→23:18)
[2017-04-06] VITALS (19 sets, daily range): BP systolic 116–144; BP diastolic 55–77; PULSE 55–79; RESP 14–29; TEMP 97.5–98.5; O2SAT 95–100
[2017-04-06] MEDS: CHLORHEXIDINE GLUCONATE 2 % 1 PACK (2 CLOTHS) TOP SCH (04:00)
--- NOTE | 2017-04-06 04:56 | RADRPT ---
EXAM DATE/TIME: 04/06/2017 03:31 [place] COMPARISON: CHEST SINGLE AP, April 05, 2017, 3:10. INDICATIONS : Shortness of breath, possible pulmonary disease. MEDICAL HISTORY : Cerebrovascular disease. Hypertension Chronic obstructive pulmonary disease. SURGICAL HISTORY : None. ENCOUNTER: Subsequent ACUITY: 2 days PAIN SCORE: 0/10 LOCATION: Bilateral chest FINDINGS: Slight hazy basilar parenchymal opacity is present, grossly stable on the left and slightly worse on the right. Cardiac contours are unchanged. CONCLUSION: Mild basilar parenchymal opacities. Julio Cesar Orlando MD on April 06, 2017 at 4:53 Board Certified Radiologist. This report was verified electronically.
[2017-04-06] MEDS: HEPARIN SODIUM - SQ 10,000 UNITS/ML VIAL SQ SCH ×3 (04:58→20:25)
[2017-04-06] MEDS ORDERED: cefTRIAXone INJ 1,000 MG in SODIUM CHLORIDE 0.9% INJ 100 ML IV SCH (05:00)
[2017-04-06] MEDS: AZITHROMYCIN INJ 500 MG in SODIUM CHLOR 0.9% 250 ML INJ 250 ML IV SCH (05:00)
[2017-04-06 05:10] LABS: BLOOD GAS CARBOXYHEMOGLOBIN 1.7 % (0-4); BLOOD GAS HCO3 17 mmol/L (22-26); BLOOD GAS O2 HGB SATURATION 92 % (90-100); BLOOD GAS OXYGEN CONTENT 10.6 Vol % (12.0-20.0); BLOOD GAS PCO2 25 mmHg (38-42); BLOOD GAS PO2 75 mmHg (61-120); BLOOD GAS TOTAL HGB 8.1 G/DL (12.0-16.0); CRITICAL VALUE NO; DRAW SITE RT RADIAL; FIO2 21 %; NUMBER OF ARTERIAL PUNCTURES 1; TEMP CORR TO 98.6; ULNAR PULSE PRESENT
[2017-04-06] MEDS: INSULIN NovoLIN REGULAR SUPPLEMENTAL SCALE SQ SCH ×4 (05:10→18:00)
[2017-04-06 05:11] LABS: STAT NO
[2017-04-06] MEDS: RESP: ALBUTEROL 2.5 MG/IPRATROPIUM 0.5 MG NEB (SCH) INH ×5 (07:50→23:06)
--- NOTE | 2017-04-06 08:00 | HHI.CCPN ---
Subjective Remarks/Hospital Course 04/05: The patient is an 87 year old male who presents to the [facility] emergency department with a history of shortness of breath noticed by the residential staff prior to arrival. On ambulance services arrival the patient was noted to have O2 saturations in the 70s. The patient had IV access obtained. The patient was placed on supplemental oxygen. The patient's O2 saturation improved on a nebulizer treatment. The patient was given Solu- Medrol 125 mg IV. The patient reportedly had wheezing in all lung avendaño prior to arrival. The patient does have a known history of COPD. Unfortunate, the patient does have a history of dementia and is extremely hard of hearing making his history and review of systems extremely limited from him. The patient on arrival did report that his shortness of breath was improving. Patient was hypotensive in the ER and was given a fluid bolus and started on antibiotics. He was accepted for admission by critical care medicine service. When I evaluated the patient earlier this morning he was resting in bed on nasal cannula. History was obtained by reviewing records. 04/06: Awake and alert, agitated. Confused and disoriented. Wants to get out of bed. On room air with O2 sats in the 90s. Blood pressure has improved. Objective Vital Signs Date Time Temp Pulse Resp B/P (MAP) Pulse Ox O2 Delivery O2 Flow Rate FiO2 04/06/17 06:00 72 04/06/17 04:00 98.2 14 144/68 (93) 96 04/05/17 07:29 Nasal Cannula 2.00 04/05/17 02:40 35 Result Diagram: 04/05/17 0320 04/05/17 0320 Other Results Laboratory Tests Test 04/06/17 04:50 Blood Gas Puncture Site RT RADIAL Blood Gas Patient Temperature 98.6 Blood Gas HCO3 17 mmol/L Blood Gas Base Excess -7.0 mmol/L Blood Gas Oxygen Saturation 92 % Arterial Blood pH 7.43 Arterial Blood Partial Pressure CO2 25 mmHg Arterial Blood Partial Pressure O2 75 mmHg Arterial Blood Oxygen Content 10.6 Vol % Arterial Blood Carboxyhemoglobin 1.7 % Arterial Blood Methemoglobin 1.0 % Blood Gas Hemoglobin 8.1 G/DL Blood Gas Inspired Oxygen 21 % Imaging Last Impressions Chest X-Ray 04/05/17 [id number] Signed Impressions: Service Date/Time: Wednesday, April 05, 2017 03:10 - CONCLUSION: Mild left base parenchymal opacity Julio Cesar Orlando MD Objective Remarks Physical Exam Narrative General: Elderly male, laying in bed on nasal cannula in no acute distress. Head and Neck exam: Head is normocephalic atraumatic. No JVD. Eyes: EOMI, pupils are equal round and reactive to light. Nose: Midline septum with pink mucous membranes Mouth: Dentition unremarkable. Moist mucus membranes. Posterior oropharynx is not erythematous. No tonsillar hypertrophy. Uvula midline. Airway patent. Cardiovascular: Regular rate and rhythm without murmurs, gallops, or rubs. Lungs: Good air entry bilaterally, scattered rhonchi, no wheezing. Not using accessory muscles of respiration currently Abdomen: Soft, nontender, bowel sounds present, no guarding. No organomegaly appreciated Extremities: No clubbing, cyanosis, or edema. 2+ pulses in all 4 extremities. No calf tenderness on palpation. Neurologic Exam: Awake and alert, disoriented and agitated trying to get out of bed, moving all 4 extremities. Grossly nonfocal. Skin Exam: No rash noted. Intact skin that is warm and dry. Procedures A/P Assessment and Plan 87-year-old male with: Acute respiratory failure COPD exacerbation Sepsis Hypotension Delirium Dementia arthritis depression hyperlipidemia COPD H/O hypertension history of cerebrovascular accident. Plan: Neuro: Follow neuro status, avoid sedatives and narcotics. Neuro psychologist consult for evaluation of dementia/delirium/agitation. Cardiovascular: IV hydration. Blood pressure improved. Pulmonary: Continue nasal cannula, bronchodilators, IV Solu-Medrol. ID: Follow-up cultures, empiric antibiotic coverage. Received 1 dose of IV vancomycin. Continue Zithromax. Switched Rocephin to cefepime 1 g IV every 8 hourly on 04/05 to cover for HCAP as patient is a residential resident. Heme: Follow CBC Renal/: IV hydration, strict intake output, monitor and replete electrolites, follow BUN creatinine. GI/liver: Swallow eval and advance by mouth diet if tolerated Endocrine: Watch for hyperglycemia, SSI for glycemic control if needed Prophylaxis: Pepcid, Heparin/ SCDs Consulted palliative care to assist with deciding goals of therapy. We'll consult and transfer to hospitalist service today for further medical management. Jimmie Plunkett MD Apr 06, 2017 08:00
--- NOTE | 2017-04-06 08:51 | PD.HHIRCNE ---
Patient History Record/History Review Reason for Referral: The patient is a 87 year old unknown handed male status post admission on 2016 for SOB and O2 saturations in the 70s and was placed on supplemental O2. This patient has a history of COPD, decreased hearing, HTN, prior CVA, hyperlipidemia and major neurocognitive disorder (formerly referred to as dementia) likely 2T combination of Alzheimer's and vascular causes. This patient is now agitated and attempting to get OOB. He is referred for baseline neurobehavioral status examination to assess cognitive, behavioral and emotional aspects of the injury and to provide treatment recommendations. Neuropsych Precautions: Diminished cognitive capacity to make decisions, unintentional danger to self 2T cognitive incapacity. Past Surgical/Medical History Past Surgery: Yes (RECTAL FISSURE REPAIR IN [place]) Major surgery in last 100 days: Unknown Hx Other Surgery: FX LEG 15 YRS AGO NOT REPAIRED Hx of Neuro Prob: No Hx Cerebrovascular Accident: Yes (Patient denies) Hx Arthritis: Yes Hypertension (High Blood Press: Yes Hx Chronic Obstructive Pulmona: Yes Hx of Problems: No Hx of Immuno Disor: No Hx of Endocrine Problems: No Hx of Eye Probl: Yes Hx of Hearing or Ear Problems: Yes Hx Depression: Yes Blood Transfusion History Hx Blood Transfusions: No (PT UNABLE TO MAKE DECISIONS FOR SELF ) Medication Active Medications Albuterol/ Ipratropium (Duoneb Neb) 1 ampule Q4HR NEB INH Last administered on 04/06/17 07:50; Admin Dose 1 AMPULE; Start 04/05/17 at 20:00 Albuterol/ Ipratropium (Duoneb Neb) 1 ampule Q6HR NEB INH Last administered on 04/05/17 14:52; Admin Dose 1 AMPULE; Start 04/05/17 at 10:00; Stop 04/05/17 at 16:42; Status DC Aspirin (Aspirin Chew) 81 mg DAILY CHEW; Start 04/06/17 at 09:00; Status UNV Azithromycin 500 mg/Sodium Chloride 250 ml @ 250 mls/hr Q24H IV Last administered on 04/06/17 05:00; Admin Dose 250 MLS/HR; Start 04/06/17 at 04: 00 Cefepime HCl 1000 mg/Sodium Chloride 100 ml @ 200 mls/hr Q8H IV Last administered on 04/05/17 23:18; Admin Dose 200 MLS/HR; Start 04/05/17 at 17: 00 Ceftriaxone Sodium 1000 mg/ Sodium Chloride 100 ml @ 200 mls/hr Q24H IV; Start 04/06/17 at 05:00; Stop 04/06/17 at 05:00; Status DC Chlorhexidine Gluconate (Chlorhexidine 2% Cloth) 3 pack Taper DAILY@04 TOP Last administered on 04/06/17 04:00; Admin Dose 3 PACK; Start 04/06/17 at 04:00; Stop 04/02/18 at 03:59 Cholecalciferol (Vitamin D3) 1,000 units DAILY PO; Start 04/06/17 at 09:00; Status UNV Doxazosin Mesylate (Cardura) 1 mg HS PO; Start 04/06/17 at 21:00; Status UNV Famotidine (Pepcid Inj) 10 mg Q12HR IV PUSH Last administered on 04/05/17 23: 18; Admin Dose 10 MG; Start 04/05/17 at 09:00 Famotidine (Pepcid Inj) 20 mg Q12H IV PUSH; Start 04/05/17 at 17:00; Status UNV Methylprednisolone Sodium Succinate (SoluMEDROL INJ) 60 mg Q12HR IV PUSH Last administered on 04/05/17 23:17; Admin Dose 60 MG; Start 04/05/17 at 09:00 Non-Formulary Medication 10 mg DAILY PO; Start 04/06/17 at 09:00; Status UNV Pravastatin Sodium (Pravachol) 80 mg DAILY PO; Start 04/06/17 at 09:00; Status UNV Quetiapine Fumarate (SEROquel) 200 mg DAILY PO; Start 04/06/17 at 09:00; Status UNV Senna/Docusate Sodium (Mili-Colace) 1 tab BID PO; Start 04/05/17 at 09:00 Sodium Chloride (NS Flush) 2 ml BID IV FLUSH Last administered on 04/05/17 23: 18; Admin Dose 2 ML; Start 04/05/17 at 09:00 Ticagrelor (Brilinta) 90 mg BID PO; Start 04/06/17 at 09:00; Status UNV Mental Status Assessment Orientation: oriented to Self, disoriented to Place, disoriented to Time, disoriented to Situation Mental Status: Impaired: Thought processing, Attention, Learning/Memory, Problem-Solving Observation Please note that this patient is hard of hearing and accommodations were required to ensure a valid assessment. Specifically, he hears lower frequency better in his left ear; minimal hearing in his right ear. The patient is alert and oriented to only person and year. He is not oriented to place, time or circumstances surrounding the reason for hospitalization. In terms of attention skills, the patient was unable to remain on task and remember basic or complex instructions. In terms of memory functioning, the patient was unable to remember any of three words after a brief period of time. The patient initiated spontaneous conversation, primarily in terms of voicing his desire to be released from restaints. Speech was characterized by adequate prosody, grammar, articulation, volume and rate. Basic naming skills were intact. Language repetition skills were intact. The patients comprehensions for basic one- and two-stage commands were intact but not for more complex instructions. Basic verbal abstraction and problem-solving skills were not intact. The patient appears to posses impaired insight and awareness into their situation and within the limits of this brief evaluation, impaired judgment. Impression Major neurocognitive deficits. Adjustment/Coping Assessment Adjustment/Coping: None: Depression, Anxiety, Severe: Awareness, Insight Observation The patients thought content was free from suicidal, homicidal or paranoid ideation, and the patients thought processes were tangential and perseverative. The patients mood was demanding, and the affect was agitated. LTG Status: Deferred STG Status: Deferred Team Members: Neuropsychologist Behavior Assessment Agitation: Moderate Treatment Engagement: Average Observation Behaviorally, the patient demonstrated signs of agitation and impulsivity. There was no remarkable evidence of a formal thought disorder or psychosis as it would pertain to an underlying psychiatric condition. LTG - Status: Deferred STG Status: Deferred Team Members: Neuropsychologist Diagnosis/Discharge Plan Impression This 87 year old man is admitted for SOB with O2 saturations in the 70s, and a history of major neurocognitive disorder (he was living in a NH prior to admission) and other medical conditions that include COPD, diminished hearing, HTN, prior CVA and hyperlipidemia. 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 His present neurobehavioral state is likely exacerbated by infection and hypoxia, and as such he will likely calm to some level from his current state with resolution of his medical issues. In the mean time, pharmacological management of his agitation is indicated. Diagnosis: (1) Major neurocognitive disorder due to Alzheimer's disease, probable, with behavioral disturbance (2) Major vascular neurocognitive disorder, probable, with behavioral disturbance Maximizing acute care outcome Concerning his present agitation, it would be suggested to schedule the Seroquel dosages, perhaps to 100 TID from present 200 qD. It is suggested to avoid benzodiazepines in this patient population, as these medication classes tend to exacerbate neurocognitive issues. At this point in his recovery process , this patient is not considered cognitively capable of making decisions of a legal, financial or medical nature, and it is likely that he will never regain cognitive capacity. He demonstrates the impaired ability to appreciate a situation and its likely consequences, and he is unable to manipulate information rationally. Discharge Planning Anticipated Problems Ongoing areas of concern will include behavioral impulsivity, lack of insight and judgment, which is expected to improve to some degree with time and treatment. Certainly, this patient is not considered safe to discharge into an independent living setting, and will need to return to a SNF level of care even once he is medically stable. Treatment Plan This clinician will continue to follow with you throughout the course of this patients acute treatment, and I will be available to meet with the patients family/support system to facilitate their understanding and the ongoing care of their family member. I will continue to provide neurobehavioral observations throughout his hospital stay to help determine when and if titration of neurobehavioral medications are possible. The goals of neuropsychological intervention shall be both educational and supportive to the family/support system as is deemed clinically appropriate. Discharge Needs Return to SNF/NH. Thank you Thank you for the opportunity to assist in this patients care. Aidan Jama, Ph.D., ABPP Board Certified in Clinical Neuropsychology [employer] [employer] [place] Licensed Psychologist #[id number] Aidan Jama PhD Apr 06, 2017 8:51 am
[2017-04-06] MEDS: DOCUSATE SODIUM 50 MG/SENNA 8.6 MG TAB PO SCH ×2 (09:00→20:24)
[2017-04-06 09:06] LABS: AUTOMATED NEUTROPHIL # 20.4 TH/MM3 (1.8-7.7); BASOPHIL % 0.1 % (0.0-2.0); EOSINOPHIL % 0.1 % (0.0-4.0); HEMATOCRIT 26.3 % (39.0-51.0); HEMO FLAGS DIFF FINAL; LYMPH % 1.8 % (9.0-44.0); LYMPHOCYTE # 0.4 TH/MM3 (1.0-4.8); MEAN CELL VOLUME 86.9 FL (80.0-100.0); MEAN CORPUSCULAR HEMOGLOBIN 28.5 PG (27.0-34.0); MEAN CORPUSCULAR HGB CONC 32.8 % (32.0-36.0); MONO % 1.9 % (0.0-8.0); NEUT % 96.1 % (16.0-70.0); PLATELET COUNT 315 TH/MM3 (150-450); RED BLOOD COUNT 3.02 MIL/MM3 (4.50-5.90); RED CELL DISTRIBUTION WIDTH 17.4 % (11.6-17.2); WHITE BLOOD COUNT 21.2 TH/MM3 (4.0-11.0)
[2017-04-06 09:18] LABS: ANION GAP 11 MEQ/L (5-15); AST (GOT) 13 U/L (15-37); BICARBONATE 18.9 MEQ/L (21.0-32.0); BLOOD UREA NITROGEN 35 MG/DL (7-18); CHLORIDE 113 MEQ/L (98-107); GLOMERULAR FILTRATION RATE 40 ML/MIN (>89); MAGNESIUM 2.1 MG/DL (1.5-2.5); POTASSIUM 3.9 MEQ/L (3.5-5.1); SODIUM (NA) 143 MEQ/L (136-145)
[2017-04-06 09:23] LABS: ALKALINE PHOSPHATASE 95 U/L (45-117); ALT (GPT) 10 U/L (12-78); TOTAL BILIRUBIN ADULT 0.3 MG/DL (0.2-1.0)
[2017-04-06] MEDS: methylPREDNISolone SOD SUCC 125 MG/2 ML VIAL IV PUSH SCH ×2 (09:45→20:25)
[2017-04-06] MEDS: SODIUM CHLORIDE 0.9% FLUSH 10 ML FLUSH IV FLUSH SCH ×2 (09:45→20:26)
[2017-04-06] MEDS: FAMOTIDINE 20 MG/2 ML VIAL IV PUSH SCH ×2 (09:47→20:26)
[2017-04-06] MEDS: CEFEPIME INJ 1,000 MG in SODIUM CHLORIDE 0.9% INJ 100 ML IV SCH ×2 (09:47→17:00)
[2017-04-06] MEDS: SODIUM CHLOR 0.9% 1000 ML INJ 1,000 ML IV SCH ×2 (09:47→20:26)
[2017-04-06] MEDS: TICAGRELOR 90 MG TAB PO SCH ×2 (12:11→20:24)
[2017-04-06] MEDS: CHOLECALCIFEROL (VIT D3) 1000 UNIT TAB PO SCH (12:12)
[2017-04-06] MEDS: ASPIRIN 81 MG CHEW TAB CHEW SCH (12:12)
[2017-04-06] MEDS: PRAVASTATIN SOD 80 MG TAB PO SCH (12:12)
[2017-04-06] MEDS: QUEtiapine FUMARATE 200 MG TAB PO SCH (12:12)
[2017-04-06 12:25] LABS: HEMATOCRIT 27.4 % (39.0-51.0); MEAN CELL VOLUME 87.7 FL (80.0-100.0); MEAN CORPUSCULAR HEMOGLOBIN 27.5 PG (27.0-34.0); MEAN CORPUSCULAR HGB CONC 31.4 % (32.0-36.0); PLATELET COUNT 300 TH/MM3 (150-450); RED BLOOD COUNT 3.12 MIL/MM3 (4.50-5.90); RED CELL DISTRIBUTION WIDTH 17.5 % (11.6-17.2); REVIEW FLAG FINAL; WHITE BLOOD COUNT 20.7 TH/MM3 (4.0-11.0)
--- NOTE | 2017-04-06 12:59 | PD.CONS ---
Consult Service Palliative Care Consult Requested By Dr. Plunkett Primary Care Physician Unknown Reason for Consultation a. To assist with evaluation and management of symptoms including: agitation b. To assist medical decision maker(s) with: better understanding of current medical conditions; weighing benefits/burdens of medical treatment options; making medical treatment decisions. HPI History of Present Illness Patient is a 87-year-old with a medical history significant for VA, CAD, CVA, COPD, hearing deficit, arthritis who resides in [facility]. Had recent hospitalization from 03/23-03/24 status post fall, x-ray did not show any acute findings however patient had elevated troponins. Cardiology was consulted and patient was found to have non-ST VA. Patient was managed conservatively. Patient was discharge back to SNF. Patient return to the ER 04/05/2017 for shortness of breath. In the nursing facility status post patient's O2 sats were were in the 70s. Patient reportedly had wheezing in all lung avendaño. Patient was sent to the ER. In the ER: * Temperature is 97.9, pulse is 90, respiration is 28, BP is 109/58, pulse ox 93 % * WBC is 27.5, hemoglobin is 10, hematocrit is 32.1, platelet is 394 * Sodium is 145, potassium is 4.3, chloride is 112, BUN is 33, creatinine is 1.76 * AST is 13, ALT is 11, troponin I 0.04 * BNP is 202 * Chest x-ray shows mild left base parenchymal opacity. * EKGs shows probable inferior myocardial infarction and ST depression * Patient placed on BiPAP gradually weaned to nasal cannula. Blood pressure became hypotensive critical medicine was consulted. * Patient promptly transferred to ICU, given Solu-Medrol, cultures obtained, continue Zithromax and Rocephin. Patient hemodynamically became more stable. On room air with saturations in the 90s. He is awake and agitated. Given agitation neuropsych was consulted. Patient remains in the ICU and antibiotics steroids was continued. Patient was deemed stable enough where intensivists signed off. Palliative care was consulted to review goals of care Givens patient's advanced age, recurrent hospitalization, and comorbidities. Pt lethargic, open eyes, could not endorse history or quantify symptomts. Pt mostly sleeping Function/Cognitive Trajectory [facility] dependent in [facility]. Recent recurrent hospitalization. Has been weak in the recent weeks that he is dependent for ADLS. Dementia is worse the past 6 months. Prior to 6 months ago pt was still doing crossword puzzels. Review of Systems ROS Limitations: Clinical Condition Past Family Social History Coded Allergies: No Known Allergies (Verified , 02/07/17) Past Medical History Hypertension Dyslipidemia COPD CVA Arthritis Depression Hard of hearing Past Surgical History Collect cystectomy Rectal fissure repair Reported Medications Brilinta (Ticagrelor) 90 Mg Tab 90 Mg PO BID Bactrim DS (Sulfamethoxazole-Trimethoprim) 800-160 Mg Tab 1 Tab PO BID Current Medications Medications (Trade) Dose Ordered Sig/Abhi Route Start Time Stop Time Status Last Admin (NS Flush) 2 ml UNSCH PRN IVF 04/05/17 03:15 (Mag-Ox) 800 mg UNSCH PRN PO 04/05/17 05:45 Magnesium Sulfate 4 gm/Sodium Chloride 100 ml @ 50 mls/hr UNSCH PRN IV 04/05/17 05:45 Magnesium Sulfate 2 gm/Sodium Chloride 100 ml @ 50 mls/hr UNSCH PRN IV 04/05/17 05:45 Potassium Chloride 100 ml @ 50 mls/hr Q2H PRN IV 04/05/17 05:45 Potassium Chloride 100 ml @ 50 mls/hr Q2H PRN IV 04/05/17 05:45 Potassium Chloride 100 ml @ 50 mls/hr Q2H PRN IV 04/05/17 05:45 Potassium Chloride 100 ml @ 25 mls/hr UNSCH PRN IV 04/05/17 05:45 (K-Phos) 2,000 mg Q4H PRN PO 04/05/17 05:45 (K-Phos) 2,000 mg UNSCH PRN PO/TUBE 04/05/17 05:45 Potassium Phosphate 30 mmol/ Sodium Chloride 260 ml @ 42 mls/hr UNSCH PRN IV 04/05/17 05:45 Sodium Phosphate 30 mmol/Sodium Chloride 250 ml @ 42 mls/hr UNSCH PRN IV 04/05/17 05:45 (D50w (Vial) Inj) 25 ml UNSCH PRN IV PUSH 04/05/17 05:45 (NovoLIN R SUPPLEMENTAL SCALE) 1 Q6HR SQ 04/05/17 06:00 04/05/17 06:33 (Duoneb Neb) 1 ampule Q2HR NEB PRN INH 04/05/17 05:45 Pharmacy Profile Note 0 ml @ 0 mls/hr UNSCH OTHER 04/05/17 05:45 Azithromycin 500 mg/Sodium Chloride 250 ml @ 250 mls/hr Q24H IV 04/06/17 04:00 04/06/17 05:00 Sodium Chloride 1,000 ml @ 110 mls/hr Q9H6M IV 04/05/17 05:45 04/06/17 09:47 (NS Flush) 2 ml UNSCH PRN IV FLUSH 04/05/17 05:45 (NS Flush) 2 ml BID IV FLUSH 04/05/17 09:00 04/06/17 09:45 (Tylenol) 650 mg Q6H PRN PO 04/05/17 05:45 (Pepcid Inj) 10 mg Q12HR IV PUSH 04/05/17 09:00 04/06/17 09:47 (Zofran Inj) 4 mg Q6H PRN IV PUSH 04/05/17 05:45 (Heparin Inj) 5,000 units Q8HR SQ 04/05/17 06:15 04/06/17 04:58 Miscellaneous Information 1 Q361D XX 04/05/17 05:45 (Chlorhexidine 2% Cloth) 3 pack Taper DAILY@04 TOP 04/06/17 04:00 04/02/18 03:59 04/06/17 04:00 (Chlorhexidine 2% Cloth) 3 pack UNSCH PRN TOP 04/05/17 05:45 (Mili-Colace) 1 tab BID PO 04/05/17 09:00 (Milk Of Magnesia Liq) 30 ml Q12H PRN PO 04/05/17 05:45 (Senokot) 17.2 mg Q12H PRN PO 04/05/17 05:45 (Dulcolax Supp) 10 mg DAILY PRN RECTAL 04/05/17 05:45 (Lactulose Liq) 30 ml DAILY PRN PO 04/05/17 05:45 (SoluMEDROL INJ) 60 mg Q12HR IV PUSH 04/05/17 09:00 04/06/17 09:45 Cefepime HCl 1000 mg/Sodium Chloride 100 ml @ 200 mls/hr Q8H IV 04/05/17 17:00 04/06/17 09:47 (Duoneb Neb) 1 ampule Q4HR NEB INH 04/05/17 20:00 04/06/17 11:39 (Aspirin Chew) 81 mg DAILY CHEW 04/06/17 10:00 04/06/17 12:12 (Vitamin D3) 1,000 units DAILY PO 04/06/17 10:00 04/06/17 12:12 (Cardura) 1 mg HS PO 04/06/17 21:00 (Pravachol) 80 mg DAILY PO 04/06/17 11:00 04/06/17 12:12 (SEROquel) 200 mg DAILY PO 04/06/17 11:00 04/06/17 12:12 (Brilinta) 90 mg BID PO 04/06/17 11:00 04/06/17 12:11 Non-Formulary Medication 10 mg DAILY PO 04/06/17 09:00 UNV Family History ETOH and depression in the family. Substance Use Tobacco: One pack per day Alcohol: History of alcohol use years ago Prescription med abuse: No Illicits: No Psychosocial History [facility] resident. Born in [facility]. When he was a boy found his mother has commited suicide. Raise my grandparent and then Father. Uncle was a physician who influenced pt. 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 [employer]et. Family now is daughter in law who is POA. Spiritual/Cultural Factors none listed Durable Power of Warehouse Driver: Completed, but not made available Physical Exam Vital Signs Date Time Temp Pulse Resp B/P (MAP) Pulse Ox O2 Delivery O2 Flow Rate FiO2 04/06/17 07:50 98 21 04/06/17 06:00 72 04/06/17 04:00 79 04/06/17 04:00 98.2 79 14 144/68 (93) 96 04/06/17 02:00 71 04/06/17 00:00 98.5 72 18 118/56 (76) 98 04/06/17 00:00 72 04/05/17 22:00 79 04/05/17 20:00 90 04/05/17 19:00 98.0 90 16 117/61 (79) 95 04/05/17 18:00 86 04/05/17 16:00 97.9 87 18 113/54 (73) 100 04/05/17 16:00 87 04/05/17 14:00 87 Exam CONSTITUTIONAL/GENERAL: This is a frail, thin elderly gentlemen, lethargic, confused. SKIN: No jaundice, rashes, or lesions. Ecchymoses on upper extremities. No wounds seen anteriorly. Skin temperature appropriate. Not diaphoretic. HEAD: Atraumatic. Normocephalic. EYES: Pupils equal and round and reactive. Extraocular motions intact. No scleral icterus. No injection or drainage. Fundi not examined. ENT: Hearing grossly normal. Nose without bleeding or purulent drainage. Throat without visible erythema, exudates, masses, or lesions. NECK: Trachea midline. Supple, nontender. No palpable thyroid enlargement or nodularity. CARDIOVASCULAR: Regular rate and rhythm without murmurs, gallops, or rubs. No JVD. Peripheral pulses symmetric. RESPIRATORY/CHEST: Symmetric, unlabored respirations. Faint rhonchi, No wheezes , GASTROINTESTINAL: Abdomen soft, non-tender, nondistended. No hepato-splenomegaly , or palpable masses. No guarding. Bowel sounds present. GENITOURINARY: Without palpable bladder distension. Betancourt catheter in place. MUSCULOSKELETAL: Extremities without clubbing, cyanosis, or edema. No joint tenderness or effusion noted. No calf tenderness. No mottling or clubbing. LYMPHATICS: No palpable cervical or supraclavicular adenopathy. NEUROLOGICAL: Awake and alert. Motor and sensory grossly within normal limits. Follows commands. Cognitively sharp. Moves all extremities. PSYCHIATRIC: No obvious anxiety/depression. no apparent hallucinations or other psychotic thought process. Diagnostic Tests Laboratory Laboratory Tests Test 04/05/17 03:20 04/05/17 03:40 04/05/17 03:51 04/05/17 03:57 White Blood Count 27.5 TH/MM3 (4.0-11.0) Red Blood Count 3.65 MIL/MM3 (4.50-5.90) Hemoglobin 10.0 GM/DL (13.0-17.0) Hematocrit 32.1 % (39.0-51.0) Mean Corpuscular Volume 88.0 FL (80.0-100.0) Mean Corpuscular Hemoglobin 27.3 PG (27.0-34.0) Mean Corpuscular Hemoglobin Concent 31.1 % (32.0-36.0) Red Cell Distribution Width 17.6 % (11.6-17.2) Platelet Count 394 TH/MM3 (150-450) Mean Platelet Volume 7.9 FL (7.0-11.0) Neutrophils (%) (Auto) 93.6 % (16.0-70.0) Lymphocytes (%) (Auto) 1.8 % (9.0-44.0) Monocytes (%) (Auto) 4.3 % (0.0-8.0) Eosinophils (%) (Auto) 0.2 % (0.0-4.0) Basophils (%) (Auto) 0.1 % (0.0-2.0) Neutrophils # (Auto) 25.8 TH/MM3 (1.8-7.7) Lymphocytes # (Auto) 0.5 TH/MM3 (1.0-4.8) Monocytes # (Auto) 1.2 TH/MM3 (0-0.9) Eosinophils # (Auto) 0.1 TH/MM3 (0-0.4) Basophils # (Auto) 0.0 TH/MM3 (0-0.2) CBC Comment DIFF FINAL Differential Comment Blood Urea Nitrogen 33 MG/DL (7-18) Creatinine 1.76 MG/DL (0.60-1.30) Random Glucose 100 MG/DL (74-106) Total Protein 6.3 GM/DL (6.4-8.2) Albumin 2.9 GM/DL (3.4-5.0) Calcium Level 8.0 MG/DL (8.5-10.1) Magnesium Level 2.1 MG/DL (1.5-2.5) Alkaline Phosphatase 110 U/L (45-117) Aspartate Amino Transf (AST/SGOT) 13 U/L (15-37) Alanine Aminotransferase (ALT/SGPT) 11 U/L (12-78) Total Bilirubin 0.4 MG/DL (0.2-1.0) Sodium Level 145 MEQ/L (136-145) Potassium Level 4.3 MEQ/L (3.5-5.1) Chloride Level 112 MEQ/L (98-107) Carbon Dioxide Level 22.7 MEQ/L (21.0-32.0) Anion Gap 10 MEQ/L (5-15) Estimat Glomerular Filtration Rate 37 ML/MIN (>89) Lactic Acid Level 3.6 mmol/L (0.4-2.0) Total Creatine Kinase 43 U/L (39-308) Troponin I 0.04 NG/ML (0.02-0.05) C-Reactive Protein 0.96 MG/DL (0.00-0.30) B-Type Natriuretic Peptide 202 PG/ML (0-100) Lipase 185 U/L (73-393) Urine Color YELLOW (YELLW/STRAW) Urine Turbidity CLEAR (CLEAR) Urine pH 5.5 (5.0-8.5) Urine Specific Seymour 1.017 (1.002-1.035) Urine Protein TRACE mg/dL (NEG-TRACE) Urine Glucose (UA) NEG mg/dL (NEG) Urine Ketones NEG mg/dL (NEG) Urine Occult Blood NEG (NEG) Urine Nitrite NEG (NEG) Urine Bilirubin NEG (NEG) Urine Urobilinogen 2.0 MG/DL (LESS THAN Urine Leukocyte Esterase SMALL (NEG) Urine RBC LESS THAN 1 /hpf (0-3) Urine WBC 3 /hpf (0-5) Urine Mucus FEW /lpf (OCC) Microscopic Urinalysis Comment CULT NOT INDICATED Blood Gas Puncture Site RT FEMORAL Blood Gas Patient Temperature 98.6 Blood Gas HCO3 20 mmol/L (22-26) Blood Gas Base Excess -3.1 mmol/L (-2-2) Blood Gas Oxygen Saturation 91 % (90-100) Arterial Blood pH 7.46 (7.380-7.420) Arterial Blood Partial Pressure CO2 29 mmHg (38-42) Arterial Blood Partial Pressure O2 63 mmHG (61-120) Arterial Blood Oxygen Content 11.9 Vol % (12.0-20.0) Arterial Blood Carboxyhemoglobin 1.2 % (0-4) Arterial Blood Methemoglobin 0.6 % (0-2) Blood Gas Hemoglobin 9.3 G/DL (12.0-16.0) Oxygen Delivery Device BIPAP Blood Gas Ventilator Setting IPAP 10 EPAP 5 Blood Gas Inspired Oxygen 35 % Prothrombin Time 11.2 SEC (9.8-11.6) Prothromb Time International Ratio 1.0 RATIO Activated Partial Thromboplast Time 22.4 SEC (24.3-30.1) Test 04/05/17 05:53 04/05/17 06:30 04/05/17 06:55 04/06/17 04:50 Lactic Acid Level 3.5 mmol/L (0.4-2.0) Blood Gas Puncture Site RT FEMORAL RT RADIAL Blood Gas Patient Temperature 98.6 98.6 Blood Gas HCO3 17 mmol/L (22-26) 17 mmol/L (22-26) Blood Gas Base Excess -6.1 mmol/L (-2-2) -7.0 mmol/L (-2-2) Blood Gas Oxygen Saturation 85 % (90-100) 92 % (90-100) Arterial Blood pH 7.44 (7.380-7.420) 7.43 (7.380-7.420) Arterial Blood Partial Pressure CO2 26 mmHg (38-42) 25 mmHg (38-42) Arterial Blood Partial Pressure O2 52 mmHG (61-120) 75 mmHg (61-120) Arterial Blood Oxygen Content 10.1 Vol % (12.0-20.0) 10.6 Vol % (12.0-20.0) Arterial Blood Carboxyhemoglobin 1.4 % (0-4) 1.7 % (0-4) Arterial Blood Methemoglobin 0.8 % (0-2) 1.0 % (0-2) Blood Gas Hemoglobin 8.5 G/DL (12.0-16.0) 8.1 G/DL (12.0-16.0) Oxygen Delivery Device NASAL CANNULA Blood Gas Liter Flow 2 L/M Nasal Screen MRSA (PCR) MRSA NOT DETECTED (NOT Blood Gas Inspired Oxygen 21 % Test 04/06/17 08:55 04/06/17 11:44 White Blood Count 21.2 TH/MM3 (4.0-11.0) 20.7 TH/MM3 (4.0-11.0) Red Blood Count 3.02 MIL/MM3 (4.50-5.90) 3.12 MIL/MM3 (4.50-5.90) Hemoglobin 8.6 GM/DL (13.0-17.0) 8.6 GM/DL (13.0-17.0) Hematocrit 26.3 % (39.0-51.0) 27.4 % (39.0-51.0) Mean Corpuscular Volume 86.9 FL (80.0-100.0) 87.7 FL (80.0-100.0) Mean Corpuscular Hemoglobin 28.5 PG (27.0-34.0) 27.5 PG (27.0-34.0) Mean Corpuscular Hemoglobin Concent 32.8 % (32.0-36.0) 31.4 % (32.0-36.0) Red Cell Distribution Width 17.4 % (11.6-17.2) 17.5 % (11.6-17.2) Platelet Count 315 TH/MM3 (150-450) 300 TH/MM3 (150-450) Mean Platelet Volume 7.9 FL (7.0-11.0) 7.7 FL (7.0-11.0) Neutrophils (%) (Auto) 96.1 % (16.0-70.0) Lymphocytes (%) (Auto) 1.8 % (9.0-44.0) Monocytes (%) (Auto) 1.9 % (0.0-8.0) Eosinophils (%) (Auto) 0.1 % (0.0-4.0) Basophils (%) (Auto) 0.1 % (0.0-2.0) Neutrophils # (Auto) 20.4 TH/MM3 (1.8-7.7) Lymphocytes # (Auto) 0.4 TH/MM3 (1.0-4.8) Monocytes # (Auto) 0.4 TH/MM3 (0-0.9) Eosinophils # (Auto) 0.0 TH/MM3 (0-0.4) Basophils # (Auto) 0.0 TH/MM3 (0-0.2) CBC Comment DIFF FINAL Differential Comment Blood Urea Nitrogen 35 MG/DL (7-18) Creatinine 1.62 MG/DL (0.60-1.30) Random Glucose 112 MG/DL (74-106) Total Protein 5.9 GM/DL (6.4-8.2) Albumin 2.6 GM/DL (3.4-5.0) Calcium Level 7.9 MG/DL (8.5-10.1) Phosphorus Level 3.3 MG/DL (2.5-4.9) Magnesium Level 2.1 MG/DL (1.5-2.5) Alkaline Phosphatase 95 U/L (45-117) Aspartate Amino Transf (AST/SGOT) 13 U/L (15-37) Alanine Aminotransferase (ALT/SGPT) 10 U/L (12-78) Total Bilirubin 0.3 MG/DL (0.2-1.0) Sodium Level 143 MEQ/L (136-145) Potassium Level 3.9 MEQ/L (3.5-5.1) Chloride Level 113 MEQ/L (98-107) Carbon Dioxide Level 18.9 MEQ/L (21.0-32.0) Anion Gap 11 MEQ/L (5-15) Estimat Glomerular Filtration Rate 40 ML/MIN (>89) Lactic Acid Level 2.8 mmol/L (0.4-2.0) Result Diagram: 04/06/17 1144 04/06/17 0855 Microbiology Microbiology Date/Time Source Procedure Growth Status 04/05/17 03:20 Blood Peripheral Aerobic Blood Culture - Preliminary NO GROWTH IN 1 DAY Resulted 04/05/17 03:20 Blood Peripheral Anaerobic Blood Culture - Preliminary NO GROWTH IN 1 DAY Resulted 04/05/17 03:15 Blood Peripheral Aerobic Blood Culture - Preliminary NO GROWTH IN 1 DAY Resulted 04/05/17 03:15 Blood Peripheral Anaerobic Blood Culture - Preliminary NO GROWTH IN 1 DAY Resulted Imaging Last Impressions Chest X-Ray 04/06/17 0600 Signed Impressions: Service Date/Time: , April 06, 2017 03:31 - CONCLUSION: Mild basilar parenchymal opacities. Julio Cesar Orlando MD Patient/Family Conference Family Conference Location: Telephone Issues Discussed: * Palliative care role, purpose, approach * Additional medical, psychosocial, and spiritual history * Patients general health, functional status, and cognitive changes in the months leading up to the current hospitalization * Patient/family understanding of the current medical problems * Patient/family understanding of prognosis * Patients goals of care as best understood from advance directives and/or conversations and/or values * Current medical treatment options and benefits/burdens of those options * Likely scenarios comparing ongoing aggressive care with a transition to comfort measures only * Questions answered to the best of my ability * Palliative care contact information provided Assessment and Plan Disease Oriented Problem List: (1) Agitation (2) COPD with exacerbation (3) Pneumonia (4) Hx of myocardial infarction (5) CVA (cerebral vascular accident) (6) Alzheimer disease Symptom Scale: (1) Agitation 0-10 Scale: Unable to quantify Pertinent Non-Medical Issues Psychosocial: Spiritual: Legal: Ethical issues impacting care: Important Contacts Pamela Heartcarlos [phone] Prognosis Hx of alzheimer's, cva, copd, VA came in for dyspnea and hypotension. Has had recrrent hospitalization. Would be appropriate for hospice if goals of care were comfort measures only. Code Status: No Code Plan == capacity- no capacity to make medical decisions. agitated. == decision maker. Pamela Livingston POA/ daughter in law. == Code Status. Pamela Livingston endorse pt would want DNR/DNI. He is a DNR/DNI. == goals of care: For now family would want maximal medical treatment of copd exacerbation. when pt is medically stable may be open to hospice. == symptom Agitation- defer to neuropsych managment. On seroquel. ==palliative care will follow. Thank you for the opportunity to participate in the care of Mr. Dunbar. Attestation To help prompt me to consider important information that might be impacting today's encounter and assessment, information from prior notes written by myself or my colleagues may have been "brought forward" into today's note. My signature on this note, however, is an attestation that I personally performed the exam, history, and/or decision-making noted today, and, unless otherwise indicated, the interactions with patient, family, and staff as well as the review of records all occurred today. I also attest that the listed assessment and stated plan reflect my best clinical judgment today based on the combination of historical information, prior notes, and today's exam/ interactions. When time spent is documented, it refers only to time spent today by the signer, or if indicated, combined time spent today by collaborating physician/nurse practitioner. Yaniv Russell MD Apr 06, 2017 12:59
[2017-04-06 13:10] LABS: POTASSIUM 4.1 MEQ/L (3.5-5.1)
[2017-04-06] MEDS: VANCOMYCIN 1,000 MG/NS 250 ML IV SCH ×2 (18:00)
[2017-04-06] MEDS: DOXAZOSIN MESYLATE 1 MG TAB PO SCH (20:24)
[2017-04-07] VITALS (19 sets, daily range): BP systolic 120–150; BP diastolic 63–98; PULSE 61–112; RESP 18–29; TEMP 97.6–98.6; O2SAT 92–98
[2017-04-07] MEDS ORDERED: NITROGLYCERIN 0.4 MG SL 25 TABS/BTL SL ONE (01:30)
[2017-04-07] MEDS: CEFEPIME INJ 1,000 MG in SODIUM CHLORIDE 0.9% INJ 100 ML IV SCH ×3 (01:57→18:16)
[2017-04-07] MEDS ORDERED: NITROGLYCERIN 0.4 MG SL 25 TABS/BTL SL PRN (02:00)
[2017-04-07] MEDS: CARVEDILOL 6.25 MG TAB PO SCH ×3 (02:00→21:16)
[2017-04-07] MEDS: NITROGLYCERIN 2% OINT 1 GM PACKET TOPICAL SCH ×4 (02:00→21:29)
[2017-04-07] MEDS: SODIUM CHLOR 0.9% 1000 ML INJ 1,000 ML IV SCH (03:15)
[2017-04-07 03:58] LABS: AUTOMATED NEUTROPHIL # 14.7 TH/MM3 (1.8-7.7); BASOPHIL % 0.1 % (0.0-2.0); EOSINOPHIL % 0.1 % (0.0-4.0); HEMO FLAGS DIFF FINAL; LYMPH % 2.1 % (9.0-44.0); LYMPHOCYTE # 0.3 TH/MM3 (1.0-4.8); MEAN CELL VOLUME 85.8 FL (80.0-100.0); MEAN CORPUSCULAR HEMOGLOBIN 27.5 PG (27.0-34.0); MEAN CORPUSCULAR HGB CONC 32.1 % (32.0-36.0); MONO % 3.2 % (0.0-8.0); NEUT % 94.5 % (16.0-70.0); PLATELET COUNT 324 TH/MM3 (150-450); RED BLOOD COUNT 3.03 MIL/MM3 (4.50-5.90); RED CELL DISTRIBUTION WIDTH 17.6 % (11.6-17.2); WHITE BLOOD COUNT 15.6 TH/MM3 (4.0-11.0)
[2017-04-07] MEDS: RESP: ALBUTEROL 2.5 MG/IPRATROPIUM 0.5 MG NEB (SCH) INH ×5 (03:59→19:58)
[2017-04-07] MEDS: CHLORHEXIDINE GLUCONATE 2 % 1 PACK (2 CLOTHS) TOP SCH (04:00)
[2017-04-07] MEDS: AZITHROMYCIN INJ 500 MG in SODIUM CHLOR 0.9% 250 ML INJ 250 ML IV SCH (04:50)
[2017-04-07] MEDS: HEPARIN SODIUM - SQ 10,000 UNITS/ML VIAL SQ SCH ×3 (05:24→21:17)
[2017-04-07] MEDS: INSULIN NovoLIN REGULAR SUPPLEMENTAL SCALE SQ SCH ×4 (05:27→18:00)
[2017-04-07 06:57] LABS: BLOOD UREA NITROGEN 37 MG/DL (7-18); GLOMERULAR FILTRATION RATE 52 ML/MIN (>89)
[2017-04-07 06:58] LABS: ALKALINE PHOSPHATASE 85 U/L (45-117); ALT (GPT) 11 U/L (12-78); ANION GAP 10 MEQ/L (5-15); AST (GOT) 11 U/L (15-37); BICARBONATE 18.6 MEQ/L (21.0-32.0); CHLORIDE 115 MEQ/L (98-107); MAGNESIUM 2.1 MG/DL (1.5-2.5); POTASSIUM 3.9 MEQ/L (3.5-5.1); SODIUM (NA) 144 MEQ/L (136-145); TOTAL BILIRUBIN ADULT 0.4 MG/DL (0.2-1.0)
[2017-04-07] MEDS: SODIUM CHLORIDE 0.9% FLUSH 10 ML FLUSH IV FLUSH SCH ×2 (09:00→21:14)
[2017-04-07] MEDS ORDERED: ESCITALOPRAM OXALATE 10 MG TAB PO SCH (09:00)
--- NOTE | 2017-04-07 09:06 | EKG ---
Date Performed: 04/07/2017 Time Performed: 02:06:36 PTAGE: 87 years EKG: Possible atrial fibrillation, cannot rule out Sinus rhythm with PACs Inferior infarct - age undetermined Lateral ST-T changes are nonspecific Abnormal ECG PREVIOUS TRACING : 04/05/2017 02.49 Compared to previous tracing, possible atrial fibrillation has replaced possible sinus rhythm, lateral ST depression has improved. DOCTOR: Jasiel Retana Interpretating Date/Time 04/07/2017 09:06:04
[2017-04-07] MEDS: DOCUSATE SODIUM 50 MG/SENNA 8.6 MG TAB PO SCH ×2 (10:16→21:16)
[2017-04-07] MEDS: PRAVASTATIN SOD 80 MG TAB PO SCH (10:16)
[2017-04-07] MEDS: QUEtiapine FUMARATE 200 MG TAB PO SCH (10:17)
[2017-04-07] MEDS: ASPIRIN 81 MG CHEW TAB CHEW SCH (10:17)
[2017-04-07] MEDS: TICAGRELOR 90 MG TAB PO SCH ×2 (10:18→21:15)
[2017-04-07] MEDS: FAMOTIDINE 20 MG/2 ML VIAL IV PUSH SCH ×2 (10:18→21:16)
[2017-04-07] MEDS: methylPREDNISolone SOD SUCC 125 MG/2 ML VIAL IV PUSH SCH ×2 (10:19→21:16)
[2017-04-07] MEDS: CHOLECALCIFEROL (VIT D3) 1000 UNIT TAB PO SCH (10:21)
--- NOTE | 2017-04-07 13:00 | HHI.HCPN ---
Reason for visit a. To assist with evaluation and management of symptoms including: agitation b. To assist medical decision maker(s) with: better understanding of current medical conditions; weighing benefits/burdens of medical treatment options; making medical treatment decisions. Subjective/Interval History Pt remains quite confused, less lethargic, more alert. At times tachypneic. Pulse ox 98 % RM. Leukocytosis improving. EKG and troponin ordered have increase troponins. Ekg done 2 am in the morning of laterall ST-T changes, undetermined inferior infarct. Culture is negative. Pt could not endorse, quantify history or symptoms. Family/friend interactions Spoke with Pamela Livingston, pt's POA. Updated her on pt's condition, acute event overnight. Goals of care. ==She is hoping a few more days of antibiotics and continue medical, pt mentation could at least go back to baseline, where speech was more fluent, and he is watching TV, and not this agitated. She would like to give it the weekend and reevaluate. I told her after each acute event, this may be the new baseline for him, where if he is awake he is agitated, only peaceful if he is resting. == Reafrime DNR. == If there is another acute event, set back, especially cardiac, she will let nurse know and to ask medical team to consult hospice. Advance Directives Durable Power of Condenser Tube Tender: Completed, but not made available Objective Vital Signs Date Time Temp Pulse Resp B/P (MAP) Pulse Ox O2 Delivery O2 Flow Rate FiO2 04/07/17 12:00 64 04/07/17 12:00 98.2 64 24 137/69 (91) 98 04/07/17 11:00 77 04/07/17 10:00 75 04/07/17 09:00 75 04/07/17 08:00 77 04/07/17 08:00 98.0 77 29 120/85 (97) 96 04/07/17 07:00 72 04/07/17 06:00 71 04/07/17 04:00 97.7 76 22 146/78 (100) 94 04/07/17 04:00 66 04/07/17 02:00 112 04/07/17 01:53 88 26 147/98 (114) 92 04/07/17 01:16 96 24 150/89 (109) 96 04/07/17 00:00 75 04/07/17 00:00 97.8 72 20 131/79 (96) 94 04/06/17 22:00 72 04/06/17 20:00 97.8 55 22 116/55 (75) 95 04/06/17 20:00 100 21 04/06/17 20:00 55 04/06/17 18:00 67 04/06/17 17:00 71 04/06/17 16:00 98.3 69 24 136/68 (90) 99 04/06/17 16:00 69 04/06/17 15:00 64 04/06/17 14:00 66 04/06/17 13:00 74 Intake & Output 04/07/17 04/07/17 06:59 18:59 Intake Total 2950 ml Balance 2950 ml IV Total 2950 ml # Voids 2 # Bowel Movements 0 Physical Exam CONSTITUTIONAL/GENERAL: This is a frail, thin elderly gentlemen, lethargic, confused. SKIN: No jaundice, rashes, or lesions. Ecchymoses on upper extremities. No wounds seen anteriorly. Skin temperature appropriate. Not diaphoretic. HEAD: Atraumatic. Normocephalic. EYES: Pupils equal and round and reactive. Extraocular motions intact. No scleral icterus. No injection or drainage. Fundi not examined. ENT: Hearing grossly normal. Nose without bleeding or purulent drainage. Throat without visible erythema, exudates, masses, or lesions. NECK: Trachea midline. Supple, nontender. No palpable thyroid enlargement or nodularity. CARDIOVASCULAR: Regular rate and rhythm without murmurs, gallops, or rubs. No JVD. Peripheral pulses symmetric. RESPIRATORY/CHEST: Symmetric, unlabored respirations. Faint rhonchi, No wheezes. GASTROINTESTINAL: Abdomen soft, non-tender, nondistended. No hepato-splenomegaly , or palpable masses. No guarding. Bowel sounds present. GENITOURINARY: Without palpable bladder distension. Betancourt catheter in place. MUSCULOSKELETAL: Extremities without clubbing, cyanosis, or edema. No joint tenderness or effusion noted. No calf tenderness. No mottling or clubbing. LYMPHATICS: No palpable cervical or supraclavicular adenopathy. NEUROLOGICAL: Awake and alert. Motor and sensory grossly within normal limits. Follows commands. Cognitively sharp. Moves all extremities. PSYCHIATRIC: No obvious anxiety/depression. no apparent hallucinations or other psychotic thought process. Diagnostic Tests Laboratory Laboratory Tests Test 04/05/17 03:20 04/05/17 03:40 04/05/17 03:51 04/05/17 03:57 White Blood Count 27.5 TH/MM3 (4.0-11.0) Red Blood Count 3.65 MIL/MM3 (4.50-5.90) Hemoglobin 10.0 GM/DL (13.0-17.0) Hematocrit 32.1 % (39.0-51.0) Mean Corpuscular Volume 88.0 FL (80.0-100.0) Mean Corpuscular Hemoglobin 27.3 PG (27.0-34.0) Mean Corpuscular Hemoglobin Concent 31.1 % (32.0-36.0) Red Cell Distribution Width 17.6 % (11.6-17.2) Platelet Count 394 TH/MM3 (150-450) Mean Platelet Volume 7.9 FL (7.0-11.0) Neutrophils (%) (Auto) 93.6 % (16.0-70.0) Lymphocytes (%) (Auto) 1.8 % (9.0-44.0) Monocytes (%) (Auto) 4.3 % (0.0-8.0) Eosinophils (%) (Auto) 0.2 % (0.0-4.0) Basophils (%) (Auto) 0.1 % (0.0-2.0) Neutrophils # (Auto) 25.8 TH/MM3 (1.8-7.7) Lymphocytes # (Auto) 0.5 TH/MM3 (1.0-4.8) Monocytes # (Auto) 1.2 TH/MM3 (0-0.9) Eosinophils # (Auto) 0.1 TH/MM3 (0-0.4) Basophils # (Auto) 0.0 TH/MM3 (0-0.2) CBC Comment DIFF FINAL Differential Comment Blood Urea Nitrogen 33 MG/DL (7-18) Creatinine 1.76 MG/DL (0.60-1.30) Random Glucose 100 MG/DL (74-106) Total Protein 6.3 GM/DL (6.4-8.2) Albumin 2.9 GM/DL (3.4-5.0) Calcium Level 8.0 MG/DL (8.5-10.1) Magnesium Level 2.1 MG/DL (1.5-2.5) Alkaline Phosphatase 110 U/L (45-117) Aspartate Amino Transf (AST/SGOT) 13 U/L (15-37) Alanine Aminotransferase (ALT/SGPT) 11 U/L (12-78) Total Bilirubin 0.4 MG/DL (0.2-1.0) Sodium Level 145 MEQ/L (136-145) Potassium Level 4.3 MEQ/L (3.5-5.1) Chloride Level 112 MEQ/L (98-107) Carbon Dioxide Level 22.7 MEQ/L (21.0-32.0) Anion Gap 10 MEQ/L (5-15) Estimat Glomerular Filtration Rate 37 ML/MIN (>89) Lactic Acid Level 3.6 mmol/L (0.4-2.0) Total Creatine Kinase 43 U/L (39-308) Troponin I 0.04 NG/ML (0.02-0.05) C-Reactive Protein 0.96 MG/DL (0.00-0.30) B-Type Natriuretic Peptide 202 PG/ML (0-100) Lipase 185 U/L (73-393) Urine Color YELLOW (YELLW/STRAW) Urine Turbidity CLEAR (CLEAR) Urine pH 5.5 (5.0-8.5) Urine Specific [place] 1.017 (1.002-1.035) Urine Protein TRACE mg/dL (NEG-TRACE) Urine Glucose (UA) NEG mg/dL (NEG) Urine Ketones NEG mg/dL (NEG) Urine Occult Blood NEG (NEG) Urine Nitrite NEG (NEG) Urine Bilirubin NEG (NEG) Urine Urobilinogen 2.0 MG/DL (LESS THAN Urine Leukocyte Esterase SMALL (NEG) Urine RBC LESS THAN 1 /hpf (0-3) Urine WBC 3 /hpf (0-5) Urine Mucus FEW /lpf (OCC) Microscopic Urinalysis Comment CULT NOT INDICATED Blood Gas Puncture Site RT FEMORAL Blood Gas Patient Temperature 98.6 Blood Gas HCO3 20 mmol/L (22-26) Blood Gas Base Excess -3.1 mmol/L (-2-2) Blood Gas Oxygen Saturation 91 % (90-100) Arterial Blood pH 7.46 (7.380-7.420) Arterial Blood Partial Pressure CO2 29 mmHg (38-42) Arterial Blood Partial Pressure O2 63 mmHG (61-120) Arterial Blood Oxygen Content 11.9 Vol % (12.0-20.0) Arterial Blood Carboxyhemoglobin 1.2 % (0-4) Arterial Blood Methemoglobin 0.6 % (0-2) Blood Gas Hemoglobin 9.3 G/DL (12.0-16.0) Oxygen Delivery Device BIPAP Blood Gas Ventilator Setting IPAP 10 EPAP 5 Blood Gas Inspired Oxygen 35 % Prothrombin Time 11.2 SEC (9.8-11.6) Prothromb Time International Ratio 1.0 RATIO Activated Partial Thromboplast Time 22.4 SEC (24.3-30.1) Test 04/05/17 05:53 04/05/17 06:30 04/05/17 06:55 04/06/17 04:50 Lactic Acid Level 3.5 mmol/L (0.4-2.0) Blood Gas Puncture Site RT FEMORAL RT RADIAL Blood Gas Patient Temperature 98.6 98.6 Blood Gas HCO3 17 mmol/L (22-26) 17 mmol/L (22-26) Blood Gas Base Excess -6.1 mmol/L (-2-2) -7.0 mmol/L (-2-2) Blood Gas Oxygen Saturation 85 % (90-100) 92 % (90-100) Arterial Blood pH 7.44 (7.380-7.420) 7.43 (7.380-7.420) Arterial Blood Partial Pressure CO2 26 mmHg (38-42) 25 mmHg (38-42) Arterial Blood Partial Pressure O2 52 mmHG (61-120) 75 mmHg (61-120) Arterial Blood Oxygen Content 10.1 Vol % (12.0-20.0) 10.6 Vol % (12.0-20.0) Arterial Blood Carboxyhemoglobin 1.4 % (0-4) 1.7 % (0-4) Arterial Blood Methemoglobin 0.8 % (0-2) 1.0 % (0-2) Blood Gas Hemoglobin 8.5 G/DL (12.0-16.0) 8.1 G/DL (12.0-16.0) Oxygen Delivery Device NASAL CANNULA Blood Gas Liter Flow 2 L/M Nasal Screen MRSA (PCR) MRSA NOT DETECTED (NOT Blood Gas Inspired Oxygen 21 % Test 04/06/17 08:55 04/06/17 11:44 04/07/17 03:35 04/07/17 07:50 White Blood Count 21.2 TH/MM3 (4.0-11.0) 20.7 TH/MM3 (4.0-11.0) 15.6 TH/MM3 (4.0-11.0) Red Blood Count 3.02 MIL/MM3 (4.50-5.90) 3.12 MIL/MM3 (4.50-5.90) 3.03 MIL/MM3 (4.50-5.90) Hemoglobin 8.6 GM/DL (13.0-17.0) 8.6 GM/DL (13.0-17.0) 8.3 GM/DL (13.0-17.0) Hematocrit 26.3 % (39.0-51.0) 27.4 % (39.0-51.0) 26.0 % (39.0-51.0) Mean Corpuscular Volume 86.9 FL (80.0-100.0) 87.7 FL (80.0-100.0) 85.8 FL (80.0-100.0) Mean Corpuscular Hemoglobin 28.5 PG (27.0-34.0) 27.5 PG (27.0-34.0) 27.5 PG (27.0-34.0) Mean Corpuscular Hemoglobin Concent 32.8 % (32.0-36.0) 31.4 % (32.0-36.0) 32.1 % (32.0-36.0) Red Cell Distribution Width 17.4 % (11.6-17.2) 17.5 % (11.6-17.2) 17.6 % (11.6-17.2) Platelet Count 315 TH/MM3 (150-450) 300 TH/MM3 (150-450) 324 TH/MM3 (150-450) Mean Platelet Volume 7.9 FL (7.0-11.0) 7.7 FL (7.0-11.0) 7.9 FL (7.0-11.0) Neutrophils (%) (Auto) 96.1 % (16.0-70.0) 94.5 % (16.0-70.0) Lymphocytes (%) (Auto) 1.8 % (9.0-44.0) 2.1 % (9.0-44.0) Monocytes (%) (Auto) 1.9 % (0.0-8.0) 3.2 % (0.0-8.0) Eosinophils (%) (Auto) 0.1 % (0.0-4.0) 0.1 % (0.0-4.0) Basophils (%) (Auto) 0.1 % (0.0-2.0) 0.1 % (0.0-2.0) Neutrophils # (Auto) 20.4 TH/MM3 (1.8-7.7) 14.7 TH/MM3 (1.8-7.7) Lymphocytes # (Auto) 0.4 TH/MM3 (1.0-4.8) 0.3 TH/MM3 (1.0-4.8) Monocytes # (Auto) 0.4 TH/MM3 (0-0.9) 0.5 TH/MM3 (0-0.9) Eosinophils # (Auto) 0.0 TH/MM3 (0-0.4) 0.0 TH/MM3 (0-0.4) Basophils # (Auto) 0.0 TH/MM3 (0-0.2) 0.0 TH/MM3 (0-0.2) CBC Comment DIFF FINAL DIFF FINAL Differential Comment Blood Urea Nitrogen 35 MG/DL (7-18) 37 MG/DL (7-18) 37 MG/DL (7-18) Creatinine 1.62 MG/DL (0.60-1.30) 1.46 MG/DL (0.60-1.30) 1.29 MG/DL (0.60-1.30) Random Glucose 112 MG/DL (74-106) 92 MG/DL (74-106) 110 MG/DL (74-106) Total Protein 5.9 GM/DL (6.4-8.2) 5.4 GM/DL (6.4-8.2) Albumin 2.6 GM/DL (3.4-5.0) 2.4 GM/DL (3.4-5.0) Calcium Level 7.9 MG/DL (8.5-10.1) 7.7 MG/DL (8.5-10.1) 7.5 MG/DL (8.5-10.1) Phosphorus Level 3.3 MG/DL (2.5-4.9) 3.2 MG/DL (2.5-4.9) Magnesium Level 2.1 MG/DL (1.5-2.5) 2.1 MG/DL (1.5-2.5) Alkaline Phosphatase 95 U/L (45-117) 85 U/L (45-117) Aspartate Amino Transf (AST/SGOT) 13 U/L (15-37) 11 U/L (15-37) Alanine Aminotransferase (ALT/SGPT) 10 U/L (12-78) 11 U/L (12-78) Total Bilirubin 0.3 MG/DL (0.2-1.0) 0.4 MG/DL (0.2-1.0) Sodium Level 143 MEQ/L (136-145) 145 MEQ/L (136-145) 144 MEQ/L (136-145) Potassium Level 3.9 MEQ/L (3.5-5.1) 4.1 MEQ/L (3.5-5.1) 3.9 MEQ/L (3.5-5.1) Chloride Level 113 MEQ/L (98-107) 116 MEQ/L (98-107) 115 MEQ/L (98-107) Carbon Dioxide Level 18.9 MEQ/L (21.0-32.0) 20.0 MEQ/L (21.0-32.0) 18.6 MEQ/L (21.0-32.0) Anion Gap 11 MEQ/L (5-15) 9 MEQ/L (5-15) 10 MEQ/L (5-15) Estimat Glomerular Filtration Rate 40 ML/MIN (>89) 45 ML/MIN (>89) 52 ML/MIN (>89) Lactic Acid Level 2.8 mmol/L (0.4-2.0) Random Vancomycin Level 6.0 COMMENT Total Creatine Kinase 60 U/L (39-308) 73 U/L (39-308) Troponin I 0.29 NG/ML (0.02-0.05) 0.53 NG/ML (0.02-0.05) Result Diagram: 04/07/17 0335 04/07/17 0335 Microbiology Microbiology Date/Time Source Procedure Growth Status 04/05/17 03:20 Blood Peripheral Aerobic Blood Culture - Preliminary NO GROWTH IN 2 DAYS Resulted 04/05/17 03:20 Blood Peripheral Anaerobic Blood Culture - Preliminary NO GROWTH IN 2 DAYS Resulted 04/05/17 03:15 Blood Peripheral Aerobic Blood Culture - Preliminary NO GROWTH IN 2 DAYS Resulted 04/05/17 03:15 Blood Peripheral Anaerobic Blood Culture - Preliminary NO GROWTH IN 2 DAYS Resulted Imaging Last Impressions Chest X-Ray 04/06/17 0600 Signed Impressions: Service Date/Time: March 03:31 - CONCLUSION: Mild basilar parenchymal opacities. Julio Cesar Orlando MD Assessment and Plan Disease Oriented Problem List: (1) Agitation (2) COPD with exacerbation (3) Pneumonia (4) Hx of myocardial infarction (5) CVA (cerebral vascular accident) (6) Alzheimer disease Symptom Scale: (1) Agitation 0-10 Scale: Unable to quantify Pertinent Non-Medical Issues Psychosocial: Spiritual: Legal: Ethical issues impacting care: Important Contacts Pamela Livingston [phone] Prognosis Hx of alzheimer's, cva, copd, MO came in for dyspnea and hypotension. Has had recurrent hospitalization. Would be appropriate for hospice if goals of care were comfort measures only. Code Status: No Code Plan == capacity- no capacity to make medical decisions. agitated. == decision maker. Pamela Livingston POA/ daughter in law. She state she have brought in POA in the past. She will provide another copy. == Code Status. Pamela Livingston endorse pt would want DNR/DNI. He is a DNR/DNI. == goals of care: Goals of care. ==She is hoping a few more days of antibiotics and continue medical treatment, pt mentation could at least go back to baseline, where speech was more fluent, and he is watching TV, and not this agitated. She would like to give it the weekend and reevaluate. I told her after each acute event, this may be the new baseline for him, where if he is awake he is agitated, only peaceful if he is resting. == Reaffirm DNR. == If there is another acute event, set back, especially cardiac, she will let nurse know and to ask medical team to consult hospice. == symptom Agitation- defer to neuropsych managment. On seroquel. ==palliative care will follow. Time Spent Total Floor Time (mins): 40 Face to Face Time (mins): 25 Attestation To help prompt me to consider important information that might be impacting today's encounter and assessment, information from prior notes written by myself or my colleagues may have been "brought forward" into today's note. My signature on this note, however, is an attestation that I personally performed the exam, history, and/or decision-making noted today, and, unless otherwise indicated, the interactions with patient, family, and staff as well as the review of records all occurred today. I also attest that the listed assessment and stated plan reflect my best clinical judgment today based on the combination of historical information, prior notes, and today's exam/ interactions. When time spent is documented, it refers only to time spent today by the signer, or if indicated, combined time spent today by collaborating physician/nurse practitioner. Yaniv Russell MD Apr 07, 2017 13:00
--- NOTE | 2017-04-07 13:56 | HHI.PR ---
Subjective Remarks Patient in bed, in restraints as he was noted agitated on/off. He did complain of chest pain overnight, seen by Dr Martin continuing education specialist. Objective Vitals Vital Signs Date Time Temp Pulse Resp B/P (MAP) Pulse Ox O2 Delivery O2 Flow Rate FiO2 04/07/17 12:00 64 04/07/17 12:00 98.2 64 24 137/69 (91) 98 04/07/17 11:00 77 04/07/17 10:00 75 04/07/17 09:00 75 04/07/17 08:00 77 04/07/17 08:00 98.0 77 29 120/85 (97) 96 04/07/17 07:00 72 04/07/17 06:00 71 04/07/17 04:00 97.7 76 22 146/78 (100) 94 04/07/17 04:00 66 04/07/17 02:00 112 04/07/17 01:53 88 26 147/98 (114) 92 04/07/17 01:16 96 24 150/89 (109) 96 04/07/17 00:00 75 04/07/17 00:00 97.8 72 20 131/79 (96) 94 04/06/17 22:00 72 04/06/17 20:00 97.8 55 22 116/55 (75) 95 04/06/17 20:00 100 21 04/06/17 20:00 55 04/06/17 18:00 67 04/06/17 17:00 71 04/06/17 16:00 98.3 69 24 136/68 (90) 99 04/06/17 16:00 69 04/06/17 15:00 64 04/06/17 14:00 66 I/O 04/06/17 04/06/17 04/06/17 04/07/17 04/07/17 04/07/17 07:00 15:00 23:00 07:00 15:00 23:00 Intake Total 1350 ml 100 ml 1700 ml 1700 ml Output Total 400 ml Balance 1350 ml 100 ml 1300 ml 1700 ml Intake Oral 350 ml IV Total 1350 ml 100 ml 1350 ml 1700 ml Output Urine Total 400 ml # Voids 3 3 2 # Bowel Movements 2 2 0 Result Diagram: 04/07/1733404/07/17334 Imaging Last Impressions Chest X-Ray 04/06/17 0600 Signed Impressions: Service Date/Time: March 03:31 - CONCLUSION: Mild basilar parenchymal opacities. Julio Cesar Orlando MD Objective Remarks GENERAL: Very skinny cachectic, demented elderly patient, agitated on/off. in restraints appear sin nad at this time. HEAD: Atraumatic. Bitemporal sunken RESPIRATORY: No accessory muscle use. Clear to auscultation. Breath sounds equal bilaterally. GASTROINTESTINAL: Abdomen soft, non-tender, nondistended. Hepatic and splenic margins not palpable. MUSCULOSKELETAL: Extremities without clubbing, cyanosis, or edema. No obvious deformities. NEUROLOGICAL: Awake and alert. Awake and alert, disoriented and agitated trying to get out of bed, moving all 4 extremities. Grossly nonfocal. Procedures A/P Assessment and Plan 87-year-old male with: Acute respiratory failure COPD exacerbation Sepsis Hypotension Delirium Dementia Arthritis Depression Hyperlipidemia COPD H/O hypertension History of cerebrovascular accident. Chest pain h/o CAD 04/06/17 overnight noted with substernal CP. EKG with lateral ST depression. CP resolved after NTG SL x2. Repeat EKG improved. Already on DAPT and statin. Added beta mallika with BP hold parameters. NTG past. Dr Alas cardiology saw recently in Feb for NSTEMI and recommended medical management, given his CKD, advanced age, dementia, possible transition to hospice. Neuro: Follow neuro status, avoid sedatives and narcotics. Neuro psychologist consult for evaluation of dementia/delirium/agitation. Cardiovascular: IV hydration. Blood pressure improved. Pulmonary: Continue nasal cannula, bronchodilators, IV Solu-Medrol. ID: Follow-up cultures, empiric antibiotic coverage. Received 1 dose of IV vancomycin. Continue Zithromax. Switched Rocephin to cefepime 1 g IV every 8 hourly on 04/05 to cover for HCAP as patient is a residential resident. Heme: Follow CBC Renal/: IV hydration, strict intake output, monitor and replete electrolites, follow BUN creatinine. GI/liver: Swallow eval and advance by mouth diet if tolerated Endocrine: Watch for hyperglycemia, SSI for glycemic control if needed Prophylaxis: Pepcid, Heparin/ SCDs Consulted palliative care to assist with deciding goals of therapy. Transfer to med/surg floor close to nursing station, requires restraints as high risk of falls and patient is on/off agitated Discussed with the mckenzie,nurse, Dr Plunkett ICU Dacia Sadler MD Apr 07, 2017 13:56
--- NOTE | 2017-04-07 14:08 | HHI.PR ---
Neuropsych Emotional Emotional: UnabletoAssess: Emotional, Anxious/Fearful, Depressed/Sad, Hostile/ Resentful, Irritable/Angry/Frustrate, Labile, Constricted/Blunted Behavior Behavior: Unable to Asses: Behavior, Coping/Acceptance, Cooperative w/ Treatment, Motivation, Frustration Tolerance/Baring, Impulsive/Agitated, Suicidal/ Homicidal Risk Cognitive Cognitive: Unable to Asses: Cognitive, Attention/Concentration, Confused/ Orientation, Insight/Awareness, Judgement/Problem-Solving, Memory Psychosocial Psychosocial: Unable to Asses: Psychosocial, Family/Other Adjustment, Realistic Expectation, Self-Esteem/Confidence Progress Notes/Response to Tx Contents of Sessions: Adjustment Time with Patient: 15 minutes Premorbid psychological status Premorbid Cognitive, Emotional and Behavioral Status: Stable. The patient was living in a detention prior to the recent admit. The patient has no prior psychiatric difficulties, as described above. Substance abuse history is not applicable. Behavioral Reactions of Patient and Family/Support System: Stable. The patients family is supportive. Emotional/Behavioral Status of Patient and Family/Support System: Stable. Pertinent issues, if appropriate to this patients clinical care, are described in detail above. Maximizing acute care outcome It is recommended that the patient be monitored for emergent behavioral impulsivity and agitation as the medical condition evolves. It is understood that he will transfer to hospice. Anticipated Problems Ongoing areas of concern will include behavioral impulsivity, lack of insight and judgment, which is not expected to improve with time or treatment. Treatment Plan This clinician will continue to follow with you throughout the course of this patients acute care treatment, and I will be available to meet with the patient s family/support system to facilitate their understanding and the ongoing care of their family member. The goals of neuropsychological intervention shall be both educational and supportive to the family/support system as is deemed clinically appropriate. Impression This 87 year old man is admitted for SOB with O2 saturations in the 70s, and a history of major neurocognitive disorder (he was living in a NH prior to admission) and other medical conditions that include COPD, diminished hearing, HTN, prior CVA and hyperlipidemia. 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 His present neurobehavioral state is likely exacerbated by infection and hypoxia, and as such he will likely calm to some level from his current state with resolution of his medical issues. In the mean time, pharmacological management of his agitation is indicated. 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 Current condition discussed with patient's RN. The patient is presently behaviorally managed with Seroquel 200 qD, with no recent episodes of agitation/restlessness. Earlier in the day, he pulled his IV tubes and was yelling nonsensically. It is understood that he will transfer to hospice now that his acute medical issues are resolved. Aidan Jama PhD Apr 07, 2017 2:08 pm
[2017-04-07 16:08] LABS: CREATINE KINASE 122 U/L (39-308)
[2017-04-07 16:26] LABS: CKMB 8.8 NG/ML (0.5-3.6)
[2017-04-07] MEDS: DOXAZOSIN MESYLATE 1 MG TAB PO SCH (21:15)
[2017-04-08] VITALS (10 sets, daily range): BP systolic 136–158; BP diastolic 63–90; PULSE 63–83; RESP 18–20; TEMP 97.6–98.1; O2SAT 94–97
[2017-04-08] MEDS: RESP: ALBUTEROL 2.5 MG/IPRATROPIUM 0.5 MG NEB (SCH) INH ×7 (00:56→23:50)
[2017-04-08] MEDS: SODIUM CHLOR 0.9% 1000 ML INJ 1,000 ML IV SCH ×4 (00:57→16:00)
[2017-04-08] MEDS: CEFEPIME INJ 1,000 MG in SODIUM CHLORIDE 0.9% INJ 100 ML IV SCH ×3 (01:46→16:32)
[2017-04-08] MEDS: CHLORHEXIDINE GLUCONATE 2 % 1 PACK (2 CLOTHS) TOP SCH (05:21)
[2017-04-08] MEDS: AZITHROMYCIN INJ 500 MG in SODIUM CHLOR 0.9% 250 ML INJ 250 ML IV SCH (05:21)
[2017-04-08] MEDS: NITROGLYCERIN 2% OINT 1 GM PACKET TOPICAL SCH ×3 (05:32→21:28)
[2017-04-08] MEDS: INSULIN NovoLIN REGULAR SUPPLEMENTAL SCALE SQ SCH ×5 (05:32→23:32)
[2017-04-08] MEDS: HEPARIN SODIUM - SQ 10,000 UNITS/ML VIAL SQ SCH ×3 (05:33→21:27)
[2017-04-08 05:39] LABS: AUTOMATED NEUTROPHIL # 10.2 TH/MM3 (1.8-7.7); BASOPHIL % 0.3 % (0.0-2.0); HEMO FLAGS DIFF FINAL; LYMPH % 3.5 % (9.0-44.0); LYMPHOCYTE # 0.4 TH/MM3 (1.0-4.8); MEAN CELL VOLUME 85.3 FL (80.0-100.0); MEAN CORPUSCULAR HEMOGLOBIN 28.3 PG (27.0-34.0); MEAN CORPUSCULAR HGB CONC 33.1 % (32.0-36.0); MONO % 2.8 % (0.0-8.0); NEUT % 93.4 % (16.0-70.0); PLATELET COUNT 323 TH/MM3 (150-450); RED BLOOD COUNT 3.17 MIL/MM3 (4.50-5.90); RED CELL DISTRIBUTION WIDTH 17.4 % (11.6-17.2); WHITE BLOOD COUNT 10.9 TH/MM3 (4.0-11.0)
[2017-04-08 05:43] LABS: BICARBONATE 19.8 MEQ/L (21.0-32.0); POTASSIUM 4.1 MEQ/L (3.5-5.1)
[2017-04-08] MEDS: VANCOMYCIN 1,000 MG/NS 250 ML IV SCH ×2 (06:31)
[2017-04-08] MEDS: SODIUM CHLORIDE 0.9% FLUSH 10 ML FLUSH IV FLUSH SCH ×2 (07:33→21:00)
[2017-04-08] MEDS: CARVEDILOL 6.25 MG TAB PO SCH ×2 (09:15→21:26)
[2017-04-08] MEDS: methylPREDNISolone SOD SUCC 125 MG/2 ML VIAL IV PUSH SCH ×2 (09:15→21:27)
[2017-04-08] MEDS: FAMOTIDINE 20 MG/2 ML VIAL IV PUSH SCH ×2 (09:15→21:31)
[2017-04-08] MEDS: CHOLECALCIFEROL (VIT D3) 1000 UNIT TAB PO SCH (09:15)
[2017-04-08] MEDS: DOCUSATE SODIUM 50 MG/SENNA 8.6 MG TAB PO SCH ×2 (09:15→21:26)
[2017-04-08] MEDS: PRAVASTATIN SOD 80 MG TAB PO SCH (09:15)
[2017-04-08] MEDS: ASPIRIN 81 MG CHEW TAB CHEW SCH (09:15)
[2017-04-08] MEDS: TICAGRELOR 90 MG TAB PO SCH ×2 (09:21→21:31)
[2017-04-08] MEDS: QUEtiapine FUMARATE 200 MG TAB PO SCH (09:21)
--- NOTE | 2017-04-08 14:12 | HHI.PR ---
Subjective Remarks In bed, appears in nad, sleepy but arousable. Deneis any chest pain or sob. Still on restraints. No fever ro chills. No n/v/d/c. Doesn;t eat much Objective Vitals Vital Signs Date Time Temp Pulse Resp B/P (MAP) Pulse Ox O2 Delivery O2 Flow Rate FiO2 04/08/17 12:15 94 Nasal Cannula 2.00 04/08/17 12:07 97.6 63 20 149/74 (99) 97 04/08/17 08:07 97.8 71 19 138/75 (96) 97 04/08/17 04:00 97.6 67 18 146/90 (108) 96 04/08/17 01:00 96 04/08/17 00:00 97.7 65 18 136/63 (87) 96 04/07/17 20:28 95 Nasal Cannula 3.00 04/07/17 20:00 100 04/07/17 20:00 97.6 70 20 140/67 (91) 96 04/07/17 18:00 98.6 88 20 138/78 (98) 04/07/17 16:00 98.0 70 18 137/63 (87) 95 04/07/17 16:00 66 04/07/17 15:00 61 I/O 04/07/17 04/07/17 04/07/17 04/08/17 04/08/17 04/08/17 07:00 15:00 23:00 07:00 15:00 23:00 Intake Total 1700 ml 450 ml Output Total 600 ml Balance 1700 ml -150 ml Intake Oral 100 ml IV Total 1700 ml 350 ml Output Urine Total 600 ml # Voids 2 # Bowel Movements 0 0 Result Diagram: 04/08/1751004/08/17 0511 Imaging Last Impressions Chest X-Ray 04/06/17 0600 Signed Impressions: Service Date/Time: March 03:31 - CONCLUSION: Mild basilar parenchymal opacities. Julio Cesar Orlando MD Objective Remarks GENERAL: Very skinny cachectic, demented elderly patient, agitated on/off. in restraints appear sin nad at this time. HEAD: Atraumatic. Bitemporal sunken RESPIRATORY: No accessory muscle use. Clear to auscultation. Breath sounds equal bilaterally. GASTROINTESTINAL: Abdomen soft, non-tender, nondistended. Hepatic and splenic margins not palpable. MUSCULOSKELETAL: Extremities without clubbing, cyanosis, or edema. No obvious deformities. NEUROLOGICAL: Awake and alert. Awake and alert, disoriented and agitated trying to get out of bed, moving all 4 extremities. Grossly nonfocal. Procedures A/P Assessment and Plan 87-year-old male with: Acute respiratory failure COPD exacerbation Sepsis Hypotension Delirium Dementia Arthritis Depression Hyperlipidemia COPD H/O hypertension History of cerebrovascular accident. Chest pain h/o CAD 04/06/17 overnight noted with substernal CP. EKG with lateral ST depression. CP resolved after NTG SL x2. Repeat EKG improved. Already on DAPT and statin. Added beta mallika with BP hold parameters. NTG past. Dr Alas cardiology saw recently in Feb for NSTEMI and recommended medical management, given his CKD, advanced age, dementia, possible transition to hospice. Neuro: Follow neuro status, avoid sedatives and narcotics. Neuro psychologist consult for evaluation of dementia/delirium/agitation. Cardiovascular: IV hydration. Blood pressure improved. Pulmonary: Continue nasal cannula, bronchodilators, IV Solu-Medrol. ID: Follow-up cultures, empiric antibiotic coverage. Received 1 dose of IV vancomycin. Continue Zithromax. Switched Rocephin to cefepime 1 g IV every 8 hourly on 04/05 to cover for HCAP as patient is a [place] [facility] resident. Heme: Follow CBC Renal/: IV hydration, strict intake output, monitor and replete electrolites, follow BUN creatinine. GI/liver: Swallow eval and advance by mouth diet if tolerated Endocrine: Watch for hyperglycemia, SSI for glycemic control if needed Prophylaxis: Pepcid, Heparin/ SCDs Consulted palliative care to assist with deciding goals of therapy. Discussed with the patient,nurse No much improvement Dacia Sadler MD Apr 08, 2017 14:12
[2017-04-08] MEDS: DOXAZOSIN MESYLATE 1 MG TAB PO SCH (21:26)
[2017-04-09] VITALS (8 sets, daily range): BP systolic 138–156; BP diastolic 68–83; PULSE 56–76; RESP 18–20; TEMP 97.6–98.1; O2SAT 96–98
[2017-04-09] MEDS: CEFEPIME INJ 1,000 MG in SODIUM CHLORIDE 0.9% INJ 100 ML IV SCH ×3 (01:59→18:24)
[2017-04-09] MEDS: SODIUM CHLOR 0.9% 1000 ML INJ 1,000 ML IV SCH ×3 (01:59→18:57)
[2017-04-09] MEDS: RESP: ALBUTEROL 2.5 MG/IPRATROPIUM 0.5 MG NEB (SCH) INH ×5 (03:58→19:53)
[2017-04-09] MEDS: CHLORHEXIDINE GLUCONATE 2 % 1 PACK (2 CLOTHS) TOP SCH (04:19)
[2017-04-09] MEDS: AZITHROMYCIN INJ 500 MG in SODIUM CHLOR 0.9% 250 ML INJ 250 ML IV SCH (04:31)
[2017-04-09] MEDS: HEPARIN SODIUM - SQ 10,000 UNITS/ML VIAL SQ SCH ×3 (05:33→21:29)
[2017-04-09] MEDS: NITROGLYCERIN 2% OINT 1 GM PACKET TOPICAL SCH ×3 (05:34→21:29)
[2017-04-09] MEDS: INSULIN NovoLIN REGULAR SUPPLEMENTAL SCALE SQ SCH ×4 (05:38→23:21)
[2017-04-09 05:51] LABS: HEMATOCRIT 27.3 % (39.0-51.0); MEAN CELL VOLUME 85.1 FL (80.0-100.0); MEAN CORPUSCULAR HEMOGLOBIN 28.4 PG (27.0-34.0); MEAN CORPUSCULAR HGB CONC 33.3 % (32.0-36.0); PLATELET COUNT 316 TH/MM3 (150-450); RED BLOOD COUNT 3.21 MIL/MM3 (4.50-5.90); RED CELL DISTRIBUTION WIDTH 17.2 % (11.6-17.2); REVIEW FLAG FINAL; WHITE BLOOD COUNT 6.2 TH/MM3 (4.0-11.0)
[2017-04-09 06:04] LABS: BICARBONATE 19.8 MEQ/L (21.0-32.0); POTASSIUM 3.6 MEQ/L (3.5-5.1)
[2017-04-09] MEDS: SODIUM CHLORIDE 0.9% FLUSH 10 ML FLUSH IV FLUSH SCH ×2 (09:00→21:00)
--- NOTE | 2017-04-09 09:45 | HHI.PR ---
Subjective Remarks Opens eyes with vocal stimuli. Less agitated. Nonverbal. Doesn't appear in acute distress at this time. VsS Objective Vitals Vital Signs Date Time Temp Pulse Resp B/P (MAP) Pulse Ox O2 Delivery O2 Flow Rate FiO2 04/09/17 07:53 98 Nasal Cannula 2.00 04/09/17 04:00 97.9 62 19 138/68 (91) 96 04/09/17 04:00 Nasal Cannula 2.00 04/09/17 00:00 Nasal Cannula 2.00 04/09/17 00:00 98.1 76 19 156/83 (107) 96 04/08/17 20:23 94 Nasal Cannula 2.00 04/08/17 20:00 83 04/08/17 20:00 98.1 69 20 146/78 (100) 94 04/08/17 20:00 Nasal Cannula 2.00 04/08/17 16:13 98.1 73 19 158/75 (102) 94 04/08/17 12:15 94 Nasal Cannula 2.00 04/08/17 12:07 97.6 63 20 149/74 (99) 97 I/O 04/08/17 04/08/17 04/08/17 04/09/17 04/09/17 04/09/17 07:00 15:00 23:00 07:00 15:00 23:00 Intake Total 450 ml 1360 ml 0 ml Output Total 600 ml 150 ml 1000 ml Balance -150 ml 1210 ml -1000 ml Intake Oral 100 ml 360 ml 0 ml IV Total 350 ml 1000 ml Output Urine Total 600 ml 150 ml 1000 ml # Voids 2 # Bowel Movements 0 0 Result Diagram: 04/09/17 0500 04/09/17 0500 Imaging Last Impressions Chest X-Ray 04/06/17 0600 Signed Impressions: Service Date/Time: March 03:31 - CONCLUSION: Mild basilar parenchymal opacities. Julio Cesar Orlando MD Objective Remarks GENERAL: Very skinny cachectic, demented elderly patient, agitated on/off. in restraints appear sin nad at this time. HEAD: Atraumatic. Bitemporal sunken RESPIRATORY: No accessory muscle use. Clear to auscultation. Breath sounds equal bilaterally. GASTROINTESTINAL: Abdomen soft, non-tender, nondistended. Hepatic and splenic margins not palpable. MUSCULOSKELETAL: Extremities without clubbing, cyanosis, or edema. No obvious deformities. NEUROLOGICAL: Awake and alert. Awake and alert, disoriented and agitated trying to get out of bed, moving all 4 extremities. Grossly nonfocal. Procedures A/P Assessment and Plan 87-year-old male with: Acute respiratory failure COPD exacerbation Sepsis Hypotension Delirium Dementia Arthritis Depression Hyperlipidemia COPD H/O hypertension History of cerebrovascular accident. Chest pain h/o CAD 04/06/17 overnight noted with substernal CP. EKG with lateral ST depression. CP resolved after NTG SL x2. Repeat EKG improved. Already on DAPT and statin. Added beta mallika with BP hold parameters. NTG past. Dr Alas cardiology saw recently in Feb for NSTEMI and recommended medical management, given his CKD, advanced age, dementia, possible transition to hospice. Neuro: Follow neuro status, avoid sedatives and narcotics. Neuro psychologist consult for evaluation of dementia/delirium/agitation. Cardiovascular: IV hydration. Blood pressure improved. Pulmonary: Continue nasal cannula, bronchodilators, IV Solu-Medrol. ID: Follow-up cultures, empiric antibiotic coverage. Received 1 dose of IV vancomycin. Continue Zithromax. Switched Rocephin to cefepime 1 g IV every 8 hourly on 04/05 to cover for HCAP as patient is a assisted resident. Heme: Follow CBC Renal/: IV hydration, strict intake output, monitor and replete electrolites, follow BUN creatinine. GI/liver: Swallow eval and advance by mouth diet if tolerated Endocrine: Watch for hyperglycemia, SSI for glycemic control if needed Prophylaxis: Pepcid, Heparin/ SCDs Consulted palliative care to assist with deciding goals of therapy. Discussed with the patient,nurse No much improvement Dacia Sadler MD Apr 09, 2017 09:45
[2017-04-09] MEDS: DOCUSATE SODIUM 50 MG/SENNA 8.6 MG TAB PO SCH ×2 (11:08→21:29)
[2017-04-09] MEDS: CHOLECALCIFEROL (VIT D3) 1000 UNIT TAB PO SCH (11:08)
[2017-04-09] MEDS: PRAVASTATIN SOD 80 MG TAB PO SCH (11:08)
[2017-04-09] MEDS: TICAGRELOR 90 MG TAB PO SCH ×2 (11:08→21:29)
[2017-04-09] MEDS: ASPIRIN 81 MG CHEW TAB CHEW SCH (11:08)
[2017-04-09] MEDS: QUEtiapine FUMARATE 200 MG TAB PO SCH (11:09)
[2017-04-09] MEDS: CARVEDILOL 6.25 MG TAB PO SCH ×2 (11:09→21:29)
[2017-04-09] MEDS: methylPREDNISolone SOD SUCC 125 MG/2 ML VIAL IV PUSH SCH ×2 (11:18→21:30)
[2017-04-09] MEDS: FAMOTIDINE 20 MG/2 ML VIAL IV PUSH SCH ×2 (11:30→21:30)
[2017-04-09] MEDS ORDERED: PHARMACY ORDERED LAB ONE (17:45)
[2017-04-09] MEDS: VANCOMYCIN 1,000 MG/NS 250 ML IV SCH ×2 (19:52)
[2017-04-09] MEDS: DOXAZOSIN MESYLATE 1 MG TAB PO SCH (21:29)
[2017-04-10] VITALS: BP 168/83; PULSE 66; RESP 20; TEMP 97.4; O2SAT 98
[2017-04-10] MEDS: CEFEPIME INJ 1,000 MG in SODIUM CHLORIDE 0.9% INJ 100 ML IV SCH ×2 (01:10→09:38)
[2017-04-10 04:00] VITALS: BP 159/72; PULSE 56; RESP 20; TEMP 98.3; O2SAT 98
[2017-04-10] MEDS: CHLORHEXIDINE GLUCONATE 2 % 1 PACK (2 CLOTHS) TOP SCH (04:00)
[2017-04-10] MEDS: HEPARIN SODIUM - SQ 10,000 UNITS/ML VIAL SQ SCH ×3 (05:23→21:53)
[2017-04-10] MEDS: INSULIN NovoLIN REGULAR SUPPLEMENTAL SCALE SQ SCH ×3 (05:23→17:56)
[2017-04-10] MEDS: AZITHROMYCIN INJ 500 MG in SODIUM CHLOR 0.9% 250 ML INJ 250 ML IV SCH (05:23)
[2017-04-10] MEDS: NITROGLYCERIN 2% OINT 1 GM PACKET TOPICAL SCH ×3 (05:24→21:53)
[2017-04-10 06:06] LABS: HEMATOCRIT 29.2 % (39.0-51.0); MEAN CELL VOLUME 86.1 FL (80.0-100.0); MEAN CORPUSCULAR HEMOGLOBIN 27.8 PG (27.0-34.0); MEAN CORPUSCULAR HGB CONC 32.3 % (32.0-36.0); PLATELET COUNT 294 TH/MM3 (150-450); RED CELL DISTRIBUTION WIDTH 16.8 % (11.6-17.2); REVIEW FLAG FINAL; WHITE BLOOD COUNT 7.6 TH/MM3 (4.0-11.0)
[2017-04-10 06:30] LABS: BICARBONATE 19.8 MEQ/L (21.0-32.0); POTASSIUM 3.5 MEQ/L (3.5-5.1)
[2017-04-10 08:00] VITALS: BP 168/76; PULSE 56; PULSE 69; RESP 18; TEMP 97.9; O2SAT 98
[2017-04-10] MEDS: PRAVASTATIN SOD 80 MG TAB PO SCH (09:37)
[2017-04-10] MEDS: ASPIRIN 81 MG CHEW TAB CHEW SCH (09:37)
[2017-04-10] MEDS: DOCUSATE SODIUM 50 MG/SENNA 8.6 MG TAB PO SCH ×2 (09:37→21:52)
[2017-04-10] MEDS: CARVEDILOL 6.25 MG TAB PO SCH ×2 (09:37→21:00)
[2017-04-10] MEDS: CHOLECALCIFEROL (VIT D3) 1000 UNIT TAB PO SCH (09:37)
[2017-04-10] MEDS: QUEtiapine FUMARATE 200 MG TAB PO SCH (09:37)
[2017-04-10] MEDS: TICAGRELOR 90 MG TAB PO SCH ×2 (09:37→21:52)
[2017-04-10] MEDS: SODIUM CHLORIDE 0.9% FLUSH 10 ML FLUSH IV FLUSH SCH ×2 (09:38→21:51)
[2017-04-10] MEDS: FAMOTIDINE 20 MG/2 ML VIAL IV PUSH SCH ×2 (09:38→21:52)
[2017-04-10] MEDS: methylPREDNISolone SOD SUCC 125 MG/2 ML VIAL IV PUSH SCH ×2 (09:38→21:52)
[2017-04-10 12:00] VITALS: BP 129/65; PULSE 68; RESP 18; TEMP 97.5; O2SAT 97
[2017-04-10 16:00] VITALS: BP 170/81; PULSE 58; RESP 18; TEMP 98.2; O2SAT 95
--- NOTE | 2017-04-10 16:43 | HHI.PR ---
Subjective Remarks Patient is less agitated this morning. DW RN to attempt to remove restraints. He is awake and has no complaints. Objective Vitals Vital Signs Date Time Temp Pulse Resp B/P (MAP) Pulse Ox O2 Delivery O2 Flow Rate FiO2 04/10/17 16:00 Room Air 04/10/17 12:05 Room Air 04/10/17 12:00 Nasal Cannula 2.00 04/10/17 08:30 Nasal Cannula 2.00 04/10/17 08:00 97.9 56 18 168/76 (106) 98 04/10/17 04:00 Nasal Cannula 2.00 04/10/17 04:00 98.3 56 20 159/72 (101) 98 04/10/17 00:00 97.4 66 20 168/83 (111) 98 04/10/17 00:00 Nasal Cannula 2.00 04/09/17 20:00 68 04/09/17 20:00 97.6 56 18 147/76 (99) 97 04/09/17 20:00 Nasal Cannula 2.00 04/09/17 19:54 98 Nasal Cannula 2.00 I/O 04/09/17 04/09/17 04/09/17 04/10/17 04/10/17 04/10/17 07:00 15:00 23:00 07:00 15:00 23:00 Intake Total 0 ml 1100 ml 720 ml 100 ml 4022 ml Output Total 1000 ml Balance -1000 ml 1100 ml 720 ml 100 ml 4022 ml Intake Oral 0 ml 720 ml 100 ml IV Total 1100 ml 4022 ml Output Urine Total 1000 ml # Voids 4 3 # Bowel Movements 0 Result Diagram: 04/10/1752904/10/17529 Objective Remarks GENERAL: No acute distress CARDIOVASCULAR: Regular rate and rhythm. RESPIRATORY: No accessory muscle use. Clear to auscultation. Breath sounds equal bilaterally. GASTROINTESTINAL: Abdomen soft, non-tender, nondistended. MUSCULOSKELETAL: Extremities without clubbing, cyanosis, or edema. NEUROLOGICAL: Awake and alert. Demented PSYCHIATRIC: Calm today Procedures A/P Assessment and Plan 87 Y/O male with dementia, history of DE, CAD, CVA, COPD with another Hospitalization for shortness of breath and concern for ACS with elevated troponins. Acute respiratory failure: COPD exacerbation/PNA - Concern for pneumonia. S/P Van, Cefepime and Azithro. - Switch to oral Levaquin - Switch to oral Prednisone H/O CAD - Patient previously evaluated by Cardiology for NSTEMI during previous admissions. Recommends medical management only - Continue Coreg, Brilinta, Aspirin. Dementia with Behavioral disturbances - Neuropsych following. Controlled on Seroquel. Attempt to DC restraints. - Palliative care following. Patient appear to be close to his baseline. DVT PPx: Heparin Social: HCS would consider Hospice if further setbacks. Discharge Planning DC to SNF in 1-2 days vs Hospice. Rosy King MD Apr 10, 2017 16:43
--- NOTE | 2017-04-10 17:22 | HHI.PR ---
Subjective Remarks Patient without much improvement. No events overnight. Objective Vitals Vital Signs Date Time Temp Pulse Resp B/P (MAP) Pulse Ox O2 Delivery O2 Flow Rate FiO2 04/10/17 16:00 Room Air 04/10/17 12:05 Room Air 04/10/17 12:00 Nasal Cannula 2.00 04/10/17 08:30 Nasal Cannula 2.00 04/10/17 08:00 97.9 56 18 168/76 (106) 98 04/10/17 08:00 69 04/10/17 04:00 Nasal Cannula 2.00 04/10/17 04:00 98.3 56 20 159/72 (101) 98 04/10/17 00:00 97.4 66 20 168/83 (111) 98 04/10/17 00:00 Nasal Cannula 2.00 04/09/17 20:00 68 04/09/17 20:00 97.6 56 18 147/76 (99) 97 04/09/17 20:00 Nasal Cannula 2.00 04/09/17 19:54 98 Nasal Cannula 2.00 I/O 04/09/17 04/09/17 04/09/17 04/10/17 04/10/17 04/10/17 06:59 14:59 22:59 06:59 14:59 22:59 Intake Total 0 ml 1100 ml 720 ml 100 ml 4022 ml 783 ml Output Total 1000 ml Balance -1000 ml 1100 ml 720 ml 100 ml 4022 ml 783 ml Intake Oral 0 ml 720 ml 100 ml IV Total 1100 ml 4022 ml 783 ml Output Urine Total 1000 ml # Voids 4 3 # Bowel Movements 0 Result Diagram: 04/10/1752904/10/17529 Imaging Last Impressions Chest X-Ray 04/06/17 06 Signed Impressions: Service Date/Time: March 03:31 - CONCLUSION: Mild basilar parenchymal opacities. Julio Cesar Orlando MD Objective Remarks GENERAL: Very skinny cachectic, demented elderly patient, agitated on/off. in restraints appear sin nad at this time. HEAD: Atraumatic. Bitemporal sunken RESPIRATORY: No accessory muscle use. Clear to auscultation. Breath sounds equal bilaterally. GASTROINTESTINAL: Abdomen soft, non-tender, nondistended. Hepatic and splenic margins not palpable. MUSCULOSKELETAL: Extremities without clubbing, cyanosis, or edema. No obvious deformities. NEUROLOGICAL: Awake and alert. Awake and alert, disoriented and agitated trying to get out of bed, moving all 4 extremities. Grossly nonfocal. Procedures A/P Assessment and Plan 87-year-old male with: Acute respiratory failure, resolving COPD exacerbation, resolving Sepsis, resolving Hypotension, resolved Delirium Dementia Arthritis Depression Hyperlipidemia H/O hypertension History of cerebrovascular accident. Chest pain h/o CAD 04/06/17 overnight noted with substernal CP. EKG with lateral ST depression. CP resolved after NTG SL x2. Repeat EKG improved. Already on DAPT and statin. Added beta mallika with BP hold parameters. NTG past. Dr Alas cardiology saw recently in Feb for NSTEMI and recommended medical management, given his CKD, advanced age, dementia, possible transition to hospice. Neuro: Follow neuro status, avoid sedatives and narcotics. Neuro psychologist consult for evaluation of dementia/delirium/agitation. Cardiovascular: IV hydration. Blood pressure improved. Pulmonary: Continue nasal cannula, bronchodilators, IV Solu-Medrol. ID: Follow-up cultures, empiric antibiotic coverage. Received 1 dose of IV vancomycin. Continue Zithromax. Switched Rocephin to cefepime 1 g IV every 8 hourly on 04/05 to cover for HCAP as patient is a intermediate resident. Heme: Follow CBC Renal/: IV hydration, strict intake output, monitor and replete electrolites, follow BUN creatinine. GI/liver: Swallow eval and advance by mouth diet if tolerated Endocrine: Watch for hyperglycemia, SSI for glycemic control if needed Prophylaxis: Pepcid, Heparin/ SCDs Consulted palliative care to assist with deciding goals of therapy. Discussed with the patient, nurse No much improvement Dacia Sadler MD Apr 10, 2017 17:22
[2017-04-10 20:00] VITALS: BP 144/65; PULSE 56; PULSE 70; RESP 18; TEMP 97.9; O2SAT 95
[2017-04-10] MEDS ORDERED: VANCOMYCIN INJ 750 MG in SODIUM CHLOR 0.9% 250 ML INJ 250 ML IV SCH (20:00)
[2017-04-10] MEDS: DOXAZOSIN MESYLATE 1 MG TAB PO SCH (21:52)
[2017-04-11] VITALS: BP 145/71; PULSE 60; RESP 18; TEMP 97.7; O2SAT 95
[2017-04-11 04:00] VITALS: BP 131/62; PULSE 60; RESP 16; TEMP 97.7; O2SAT 96
[2017-04-11] MEDS: HEPARIN SODIUM - SQ 10,000 UNITS/ML VIAL SQ SCH (05:24)
[2017-04-11] MEDS: CHLORHEXIDINE GLUCONATE 2 % 1 PACK (2 CLOTHS) TOP SCH (05:24)
[2017-04-11] MEDS: NITROGLYCERIN 2% OINT 1 GM PACKET TOPICAL SCH (05:24)
[2017-04-11 06:43] LABS: BICARBONATE 20.7 MEQ/L (21.0-32.0); POTASSIUM 3.4 MEQ/L (3.5-5.1)
[2017-04-11 08:00] VITALS: BP 100/63; PULSE 114; RESP 18; TEMP 97.6; O2SAT 92
[2017-04-11 08:09] VITALS: PULSE 104
[2017-04-11] MEDS: PRAVASTATIN SOD 80 MG TAB PO SCH (08:18)
[2017-04-11] MEDS: CARVEDILOL 6.25 MG TAB PO SCH (08:18)
[2017-04-11] MEDS: TICAGRELOR 90 MG TAB PO SCH (08:18)
[2017-04-11] MEDS: QUEtiapine FUMARATE 200 MG TAB PO SCH (08:18)
[2017-04-11] MEDS: DOCUSATE SODIUM 50 MG/SENNA 8.6 MG TAB PO SCH (08:18)
[2017-04-11] MEDS: ASPIRIN 81 MG CHEW TAB CHEW SCH (08:18)
[2017-04-11] MEDS: CHOLECALCIFEROL (VIT D3) 1000 UNIT TAB PO SCH (08:18)
[2017-04-11] MEDS: SODIUM CHLORIDE 0.9% FLUSH 10 ML FLUSH IV FLUSH SCH (08:19)
[2017-04-11] MEDS: FAMOTIDINE 20 MG/2 ML VIAL IV PUSH SCH (08:19)
[2017-04-11] MEDS ORDERED: predniSONE 20 MG TAB PO SCH (09:00)
[2017-04-11] MEDS ORDERED: LEVOFLOXACIN 750 MG TAB PO SCH (09:00)
[2017-04-11 09:54] LABS: HEMATOCRIT 30.5 % (39.0-51.0); MEAN CELL VOLUME 84.2 FL (80.0-100.0); MEAN CORPUSCULAR HEMOGLOBIN 28.4 PG (27.0-34.0); MEAN CORPUSCULAR HGB CONC 33.7 % (32.0-36.0); PLATELET COUNT 286 TH/MM3 (150-450); RED BLOOD COUNT 3.63 MIL/MM3 (4.50-5.90); RED CELL DISTRIBUTION WIDTH 16.6 % (11.6-17.2); REVIEW FLAG FINAL; WHITE BLOOD COUNT 7.7 TH/MM3 (4.0-11.0)
[2017-04-11] MEDS ORDERED: PRED20 PO (10:36)
[2017-04-11] MEDS ORDERED: NITR0.4S SL (10:36)
[2017-04-11] MEDS ORDERED: LEVA750T9 PO (10:36)
[2017-04-11] MEDS ORDERED: LISI-519 PO (10:36)
--- NOTE | 2017-04-11 11:01 | HHI.DCPOC ---
Discharge Care Plan Diagnosis: (1) COPD with exacerbation (2) Pneumonia (3) Alzheimer disease Your Health Problems Are: Anxiety Shortness of Breath Goals to Promote Your Health * To prevent worsening of your condition and complications * To maintain your health at the optimal level Directions to Meet Your Goals Take your medications as prescribed Follow your dietary instruction Follow activity as directed Keep your appointments as scheduled Take your immunizations and boosters as scheduled If your symptoms worsen call your PCP, if no PCP go to Urgent Care Center or Emergency Room Smoking is Dangerous to Your Health. Avoid second hand smoke Call the 24-hour hour crisis hotline for domestic abuse at Ryann Polanco Apr 11, 2017 11:01 Rosy King MD Apr 11, 2017 12:06
--- NOTE | 2017-04-11 11:08 | HHI.HCPN ---
Reason for visit a. To assist with evaluation and management of symptoms including: agitation b. To assist medical decision maker(s) with: better understanding of current medical conditions; weighing benefits/burdens of medical treatment options; making medical treatment decisions. Subjective/Interval History Patient seen a medical floor. He was resting in bed in no acute distress. Alert, very hard of hearing. Verbal, not always able to communicate needs secondary to confusion/dementia and hearing impairment. Patient was able to tell me his name and properly identified the name of this hospital. He tells me that he came to the hospital for shortness of breath. Unable to tell me his age. Intermittent confusion noted. Patient denies pain, nausea vomiting or abdominal discomfort. Endorsing intermittent shortness of breath with physical exertion. Increased work of breathing noted at times. Patient remains afebrile, stable hemodynamically. Currently tolerated room air with oxygen saturation in the mid to low 90s. Laboratory workup today revealing improved leukocytosis, WBC 7.7, Hgb stable at 10.3, platelet count 286. Sodium 138, potassium 3.4, BUN/creatinine 27/1.02. Blood cultures with no growth in 5 days[address] call to [facility] to obtain copy of advance directives. . Family/friend interactions Telephone conversation with patient's jtwmxkdo-da-ysk Pamela Jean-Baptistehipolitocarlos. Goals of care at this time is for patient to maximize his medical management while inpatient and to return to [facility] for long-term care once medically clear. Hospice philosophy and benefits previously introduced, Pamela tells me that family is not ready for hospice at this time; however, they would consider hospice should patient's clinical condition continues to decline. . Advance Directives Living Will: Copy in medical record Health Care Surrogate: Copy in medical record Durable Power of Freight Service Inspector: Copy in medical record Advance Directive Specifics Date completed: 07/17/2015. Health Care Surrogate(s): Son Alonso Gupta Nadia OR vokxppte-en-imy Angy IbanezPamelaRhina Miki. . Documented care wishes: Living will with standard verbiage as his pertains to terminal condition or end- stage condition. . Objective Vital Signs Date Time Temp Pulse Resp B/P (MAP) Pulse Ox O2 Delivery O2 Flow Rate FiO2 04/11/17 08:09 104 04/11/17 08:00 Room Air 04/11/17 08:00 97.6 114 18 100/63 (75) 92 04/11/17 04:00 97.7 60 16 131/62 (85) 96 04/11/17 00:00 97.7 60 18 145/71 (95) 95 04/10/17 20:00 97.9 56 18 144/65 (91) 95 04/10/17 20:00 70 04/10/17 20:00 Room Air 04/10/17 16:00 98.2 58 18 170/81 (110) 95 04/10/17 16:00 Room Air 04/10/17 12:05 Room Air 04/10/17 12:00 Nasal Cannula 2.00 04/10/17 12:00 97.5 68 18 129/65 (86) 97 Intake & Output 04/11/17 04/11/17 07:00 19:00 Intake Total 240 ml Output Total 1800 ml Balance -1560 ml Intake Oral 240 ml Output Urine Total 1800 ml # Voids 1 # Bowel Movements 0 Physical Exam CONSTITUTIONAL/GENERAL: This is a frail, thin elderly gentlemen resting in bed in no acute distress. SKIN: No jaundice, rashes, or lesions. Ecchymoses on upper extremities. No wounds seen anteriorly. Skin temperature appropriate. Not diaphoretic. HEAD: Atraumatic. Normocephalic. Bilateral temporal wasting. EYES: Pupils equal and round and reactive. Extraocular motions intact. No scleral icterus. No injection or drainage. ENT: Hearing grossly normal. Nose without bleeding or purulent drainage. Moist oral mucosa, edentulous. NECK: Trachea midline. Supple, nontender. CARDIOVASCULAR: Regular rate and rhythm without murmurs. Peripheral pulses symmetric. RESPIRATORY/CHEST: Symmetric, unlabored respirations. Clear, diminished breath sounds bilaterally. Increased work of breathing noted at times. GASTROINTESTINAL: Abdomen soft, non-tender, nondistended. No guarding. Bowel sounds present. GENITOURINARY: Without palpable bladder distension. MUSCULOSKELETAL: Extremities without clubbing, cyanosis, or edema. Muscular atrophy to all 4 extremities. NEUROLOGICAL: Awake and alert to self, place and situation. Intermittently confusion. Dementia at baseline. PSYCHIATRIC: Intermittent restlessness. . Diagnostic Tests Laboratory Laboratory Tests Test 04/09/17 05:00 04/09/17 19:45 04/10/17 05:30 04/11/17 06:00 White Blood Count 6.2 TH/MM3 (4.0-11.0) 7.6 TH/MM3 (4.0-11.0) Red Blood Count 3.21 MIL/MM3 (4.50-5.90) 3.40 MIL/MM3 (4.50-5.90) Hemoglobin 9.1 GM/DL (13.0-17.0) 9.4 GM/DL (13.0-17.0) Hematocrit 27.3 % (39.0-51.0) 29.2 % (39.0-51.0) Mean Corpuscular Volume 85.1 FL (80.0-100.0) 86.1 FL (80.0-100.0) Mean Corpuscular Hemoglobin 28.4 PG (27.0-34.0) 27.8 PG (27.0-34.0) Mean Corpuscular Hemoglobin Concent 33.3 % (32.0-36.0) 32.3 % (32.0-36.0) Red Cell Distribution Width 17.2 % (11.6-17.2) 16.8 % (11.6-17.2) Platelet Count 316 TH/MM3 (150-450) 294 TH/MM3 (150-450) Mean Platelet Volume 8.1 FL (7.0-11.0) 7.9 FL (7.0-11.0) Blood Urea Nitrogen 31 MG/DL (7-18) 28 MG/DL (7-18) 27 MG/DL (7-18) Creatinine 1.05 MG/DL (0.60-1.30) 0.96 MG/DL (0.60-1.30) 1.02 MG/DL (0.60-1.30) Random Glucose 108 MG/DL (74-106) 80 MG/DL (74-106) 108 MG/DL (74-106) Calcium Level 8.0 MG/DL (8.5-10.1) 7.7 MG/DL (8.5-10.1) 7.9 MG/DL (8.5-10.1) Sodium Level 142 MEQ/L (136-145) 140 MEQ/L (136-145) 138 MEQ/L (136-145) Potassium Level 3.6 MEQ/L (3.5-5.1) 3.5 MEQ/L (3.5-5.1) 3.4 MEQ/L (3.5-5.1) Chloride Level 111 MEQ/L (98-107) 110 MEQ/L (98-107) 108 MEQ/L (98-107) Carbon Dioxide Level 19.8 MEQ/L (21.0-32.0) 19.8 MEQ/L (21.0-32.0) 20.7 MEQ/L (21.0-32.0) Anion Gap 11 MEQ/L (5-15) 10 MEQ/L (5-15) 9 MEQ/L (5-15) Estimat Glomerular Filtration Rate 67 ML/MIN (>89) 74 ML/MIN (>89) 69 ML/MIN (>89) Vancomycin Level Trough 11.8 MCG/ML (5.0-10.0) Test 04/11/17 09:34 White Blood Count 7.7 TH/MM3 (4.0-11.0) Red Blood Count 3.63 MIL/MM3 (4.50-5.90) Hemoglobin 10.3 GM/DL (13.0-17.0) Hematocrit 30.5 % (39.0-51.0) Mean Corpuscular Volume 84.2 FL (80.0-100.0) Mean Corpuscular Hemoglobin 28.4 PG (27.0-34.0) Mean Corpuscular Hemoglobin Concent 33.7 % (32.0-36.0) Red Cell Distribution Width 16.6 % (11.6-17.2) Platelet Count 286 TH/MM3 (150-450) Mean Platelet Volume 8.0 FL (7.0-11.0) Result Diagram: 04/11/1734 04/11/17 0600 Microbiology Microbiology Date/Time Source Procedure Growth Status 04/05/17 03:20 Blood Peripheral Aerobic Blood Culture - Final NO GROWTH IN 5 DAYS Complete 04/05/17 03:20 Blood Peripheral Anaerobic Blood Culture - Final NO GROWTH IN 5 DAYS Complete Assessment and Plan Disease Oriented Problem List: (1) COPD with exacerbation (2) Pneumonia (3) Hx of myocardial infarction (4) CVA (cerebral vascular accident) (5) Alzheimer disease Symptom Scale: (1) Dyspnea 0-10 Scale: 4 Comment: COPD exacerbation. (2) Agitation 0-10 Scale: Unable to quantify Pertinent Non-Medical Issues Psychosocial: Spiritual: Legal: Ethical issues impacting care: Important Contacts Pamela Livingston [phone] Prognosis Hx of alzheimer's, cva, copd, NV came in for dyspnea and hypotension. Has had recurrent hospitalization. Would be appropriate for hospice if goals of care were comfort measures only. Code Status: No Code Plan * CODE STATUS: DNR/DNI. Community DNR signed. * HEALTHCARE DECISION-MAKING: Patient unable to participating in medical decision-making secondary to baseline dementia/confusion. Secured copy of advance directives, patient has designated his son Alonso Livingston OR his jfjjxxie-gm-srp Angy Zuniga (Kim) as healthcare surrogate decision maker. * GOALS OF CARE: As per patient's imfxcobe-ct-gcu Pamela Livingston/KOLBY, goals of care at this time is for patient to maximize his medical management while inpatient and to return to [facility] for long-term care once medically clear. Hospice philosophy and benefits previously introduced, Pamela tells me that family is not ready for hospice at this time; however, they would consider hospice should patient's clinical condition continues to decline. * SYMPTOMS: = Dyspnea, secondary to COPD exacerbation, acute respiratory failure. Currently tolerating room air. = Agitation, patient currently on Seroquel. * Palliative care contact information has been provided to patient's family. * Palliative care will continue to follow-up as needed for further clarifications of goals of care as patient's clinical course continues to evolve. . Time Spent Total Floor Time (mins): 33 (Total time to include review medical records, physical exam, telephone conversation with patient's healthcare surrogate Pamela for GOC and telephone call to [facility] to request copy of advance directives.) >50% Counseling/Coord of Care: Yes Attestation To help prompt me to consider important information that might be impacting today's encounter and assessment, information from prior notes written by myself or my colleagues may have been "brought forward" into today's note. My signature on this note, however, is an attestation that I personally performed the exam, history, and/or decision-making noted today, and, unless otherwise indicated, the interactions with patient, family, and staff as well as the review of records all occurred today. I also attest that the listed assessment and stated plan reflect my best clinical judgment today based on the combination of historical information, prior notes, and today's exam/ interactions. When time spent is documented, it refers only to time spent today by the signer, or if indicated, combined time spent today by collaborating physician/nurse practitioner. Chen Das Apr 11, 2017 11:08
[2017-04-11 12:00] VITALS: BP 116/71; PULSE 75; RESP 18; TEMP 97.5; O2SAT 97
--- NOTE | 2017-04-11 12:07 | HHI.DS ---
Discharge Summary Admission Date Apr 05, 2017 at 05:46 Discharge Date: Apr 11, 2017 Admitting Diagnosis Pneumonia, Sepsis (1) Pneumonia ICD Code: J18.9 - Pneumonia, unspecified organism (2) Alzheimer disease ICD Code: G30.9 - Alzheimer's disease, unspecified (3) Agitation ICD Code: R45.1 - Restlessness and agitation (4) Major neurocognitive disorder due to Alzheimer's disease, probable, with behavioral disturbance ICD Code: G30.9 - Alzheimer's disease, unspecified; F02.81 - Dementia in other diseases classified elsewhere with behavioral disturbance Procedures None Brief History - From Admission HPI from the admitting physician. The patient is an 87 year old male who presents to the [facility] emergency department with a history of shortness of breath noticed by the [facility] staff prior to arrival. On ambulance services arrival the patient was noted to have O2 saturations in the 70s. The patient had IV access obtained. The patient was placed on supplemental oxygen. The patient's O2 saturation improved on a nebulizer treatment. The patient was given Solu-Medrol 125 mg IV. The patient reportedly had wheezing in all lung avendaño prior to arrival. The patient does have a known history of COPD. Unfortunate, the patient does have a history of dementia and is extremely hard of hearing making his history and review of systems extremely limited from him. The patient on arrival did report that his shortness of breath was improving. Patient was hypotensive in the ER and was given a fluid bolus and started on antibiotics. He was accepted for admission by critical care medicine service. When I evaluated the patient earlier this morning he was resting in bed on nasal cannula. History was obtained by reviewing records. CBC/BMP: 04/11/17 0934 04/11/17 0600 Significant Findings Laboratory Tests Test 04/09/17 05:00 04/09/17 19:45 04/10/17 05:30 04/11/17 06:00 Red Blood Count 3.21 MIL/MM3 (4.50-5.90) 3.40 MIL/MM3 (4.50-5.90) Hemoglobin 9.1 GM/DL (13.0-17.0) 9.4 GM/DL (13.0-17.0) Hematocrit 27.3 % (39.0-51.0) 29.2 % (39.0-51.0) Blood Urea Nitrogen 31 MG/DL (7-18) 28 MG/DL (7-18) 27 MG/DL (7-18) Random Glucose 108 MG/DL (74-106) 108 MG/DL (74-106) Calcium Level 8.0 MG/DL (8.5-10.1) 7.7 MG/DL (8.5-10.1) 7.9 MG/DL (8.5-10.1) Chloride Level 111 MEQ/L (98-107) 110 MEQ/L (98-107) 108 MEQ/L (98-107) Carbon Dioxide Level 19.8 MEQ/L (21.0-32.0) 19.8 MEQ/L (21.0-32.0) 20.7 MEQ/L (21.0-32.0) Estimat Glomerular Filtration Rate 67 ML/MIN (>89) 74 ML/MIN (>89) 69 ML/MIN (>89) Vancomycin Level Trough 11.8 MCG/ML (5.0-10.0) Potassium Level 3.4 MEQ/L (3.5-5.1) Test 04/11/17 09:34 Red Blood Count 3.63 MIL/MM3 (4.50-5.90) Hemoglobin 10.3 GM/DL (13.0-17.0) Hematocrit 30.5 % (39.0-51.0) Imaging Last Impressions Chest X-Ray 04/06/17 0600 Signed Impressions: Service Date/Time: March 03:31 - CONCLUSION: Mild basilar parenchymal opacities. Julio Cesar Orlando MD PE at Discharge GENERAL: No acute distress CARDIOVASCULAR: Regular rate and rhythm. RESPIRATORY: No accessory muscle use. Clear to auscultation. Breath sounds equal bilaterally. GASTROINTESTINAL: Abdomen soft, non-tender, nondistended. MUSCULOSKELETAL: Extremities without clubbing, cyanosis, or edema. NEUROLOGICAL: Awake and alert. Demented PSYCHIATRIC: Calm today Pt update on day of discharge Patient states he is doing ok. He has been calm and cooperative. Hospital Course 87 Y/O male with dementia, history of ME, CAD, CVA, COPD with another Hospitalization for shortness of breath and concern for ACS with elevated troponins. Evaluation and treatment course detailed below: Acute respiratory failure: COPD exacerbation/PNA - Concern for pneumonia. S/P Van, Cefepime and Azithro. - Switched to oral Levaquin - Switch to oral Prednisone from IV Solumedrol. H/O CAD - Patient previously evaluated by Cardiology for NSTEMI during previous admissions. Recommends medical management only - Continue Coreg, Brilinta, Aspirin. Dementia with Behavioral disturbances - Neuropsych following. Controlled on Seroquel. - Discharge on same Pt Condition on Discharge: Stable Discharge Disposition: Discharge to SNF Discharge Time: > 30 minutes Discharge Instructions DIET: Follow Instructions for: Heart Healthy Diet Speech Therapy-Diet Recommends: Mechanical Soft Activities you can perform: Regular-No Restrictions Follow up Referrals: SNF/[facility] with [facility] New Medications: Prednisone (Prednisone) 20 Mg Tab 20 MG PO DIRECTED for Inflammation for 5 Days, #7 TAB 0 Refills 20 MG twice a day x 2 days, then 10 MG daily x 3 days Levofloxacin (Levaquin) 750 Mg Tablet 750 MG PO DAILY for INFECTION for 7 Days, #7 TAB Nitroglycerin SL (Nitrostat SL) 0.4 Mg Subl 0.4 MG SL Q5M PRN for CHEST PAIN for 30 Days, #8640 TAB Changed Medications: Lisinopril (Lisinopril) 5 Mg Tab 2.5 MG PO DAILY for HTN for 30 Days, #30 TAB (Changed from: 5 MG) Continued Medications: Aspirin (Aspirin) 81 Mg Chew 81 MG CHEW DAILY for antiplatelet for 30 Days, TAB 0 Refills Bupropion HCl (Bupropion HCl) 100 Mg Tab 150 MG PO BID for Control Depression, #20 TAB 0 Refills Carvedilol (Coreg) 6.25 Mg Tab 6.25 MG PO Q12HR for Blood Pressure Management for 30 Days, #30 TAB Cholecalciferol (Vitamin D3) 1,000 Unit Chew 1000 UNITS CHEW DAILY for Nutritional Supplement, #1 BOTTLE 0 Refills Docusate Sodium (Colace) 100 Mg Capsule 100 MG PO BID PRN for CONSTIPATION, #10 TAB 0 Refills Doxazosin (Cardura) 1 Mg Tab 1 MG PO HS for 30 Days, TAB Escitalopram Liq (Escitalopram Liq) 5 Mg/5 Ml Soln 10 MG PO DAILY for depression, #300 ML Ipratropium-Albuterol Neb (Duoneb) 0.5-2.5 Mg/3 Ml Neb 1 AMPULE NEB Q6HR NEB PRN for SHORTNESS OF BREATH for 7 Days, ML 0 Refills Potassium Chloride Microencaps (Potassium Chloride Microencaps) 20 Meq Tab 20 MEQ PO Q12HR for Electrolyte Replacement for 30 Days, TAB Pravastatin (Pravastatin) 80 Mg Tab 80 MG PO DAILY for Cholesterol Management, #30 TAB 0 Refills Quetiapine (Seroquel) 200 Mg Tab 200 MG PO DAILY for anxiety, #30 TAB 0 Refills Ticagrelor (Brilinta) 90 Mg Tab 90 MG PO BID for Blood Clot Prevention, #60 TAB 0 Refills Discontinued Medications: Amlodipine (Norvasc) 5 Mg Tab 10 MG PO DAILY for 30 Days, TAB Sulfamethoxazole-Trimethoprim (Bactrim DS) 800-160 Mg Tab 1 TAB PO BID for Infection, #6 TAB 0 Refills Rosy King MD Apr 11, 2017 12:07
[2017-04-12] MEDS ORDERED: PHARMACY ORDERED LAB-VANCO TROUGH ONE (19:45)
== END 2017-04-11 13:27 | DRG 871 ==
LOC: NEPE 02:36 → NEDA 05:46 → HIMN 06:15 → N04A 04-07 17:50
PROVIDERS: ADMIT Family Medicine; ATTEND Family Medicine
PROC: 5A09357 Assistance with Respiratory Ventilation, Less than 24 Consecutive Hours, Continuous Positive Airway Pressure (ICD-10-PCS; principal; 2017-04-05)
DX: A41.9 Sepsis, unspecified organism (principal); J96.01 Acute respiratory failure with hypoxia; J18.9 Pneumonia, unspecified organism; R64 Cachexia; J44.1 Chronic obstructive pulmonary disease with (acute) exacerbation; J44.0 Chronic obstructive pulmonary disease with (acute) lower respiratory infection; F02.81 Dementia in other diseases classified elsewhere, unspecified severity, with behavioral disturbance; Z68.1 Body mass index [BMI] 19.9 or less, adult; F01.51 Vascular dementia, unspecified severity, with behavioral disturbance; G30.9 Alzheimer's disease, unspecified; Y95 Nosocomial condition; E78.5 Hyperlipidemia, unspecified; I12.9 Hypertensive chronic kidney disease with stage 1 through stage 4 chronic kidney disease, or unspecified chronic kidney disease; N18.9 Chronic kidney disease, unspecified; I25.10 Atherosclerotic heart disease of native coronary artery without angina pectoris; I25.2 Old myocardial infarction; H91.90 Unspecified hearing loss, unspecified ear; M19.90 Unspecified osteoarthritis, unspecified site; F17.210 Nicotine dependence, cigarettes, uncomplicated; F32.9 Major depressive disorder, single episode, unspecified; Z66 Do not resuscitate; Z78.1 Physical restraint status; Z86.73 Personal history of transient ischemic attack (TIA), and cerebral infarction without residual deficits
CPT/HCPCS: 36600; 71010; 76937; 80048; 80053; 80202; 81001; 82550; 82552; 82805; 82948; 83605; 83690; 83735; 83880; 84100; 84484; 85025; 85027; 85610; 85730; 86140; 87040; 87641; 93005; 94002; 94640; 94664; 94667; 96365; 96367; J0456; J0692; J0696; J1644; J2930; J3370; J7030; J7040; J7050; J7512